=== PATIENT | female | born 1960 | race Caucasian/White ===

== ENCOUNTER 2018-01-03 13:18 | Inpatient (IN) ==
--- NOTE | 2018-01-03 09:10 | Discharge Summary ---
Orders not resulted at time of discharge: Pending orders 01/03/18 09:09 XR knee LT limited 1-2V [XR] Routine Hemoglobin and Hematocrit [HEME] Routine Date of Encounter: 01/04/18 Time of Encounter: 07:55 - Discharge Diagnosis (1) Arthritis of left knee Priority: Primary Status: Chronic (2) Status post total left knee replacement Priority: Primary Status: Acute (3) Hypertension Priority: Secondary Status: Chronic Qualifiers: Hypertension type: unspecified Qualified Code(s): I10 - Essential (primary ) hypertension (4) Hyperlipidemia Priority: Secondary Status: Chronic Qualifiers: Hyperlipidemia type: unspecified Qualified Code(s): E78.5 - Hyperlipidemia , unspecified (5) Coronary artery disease Priority: Secondary Status: Chronic Qualifiers: Coronary Disease-Associated Artery/Lesion type: [place] artery [place] vs. transplanted heart: [place] heart Associated angina: angina presence unspecified Qualified Code(s): I25.10 - Atherosclerotic heart disease of [place] coronary artery without angina pectoris (6) Obstructive sleep apnea Priority: Secondary Status: Chronic (7) COPD (chronic obstructive pulmonary disease) Priority: Secondary Status: Chronic Qualifiers: COPD type: unspecified COPD Qualified Code(s): J44.9 - Chronic obstructive pulmonary disease, unspecified (8) History of tobacco use Priority: Secondary Status: Chronic (9) S/P insertion of spinal cord stimulator Priority: Secondary Status: Chronic (10) Morbid obesity with BMI of 40.0-44.9, adult Priority: Secondary Status: Chronic - Hospital Course Hospital course: Ms. Hernandez is a 57 year old female Status post total knee replacementThe patient had an uneventful postoperative course. They received antibiotics and physical therapy and were discharged in stable condition. There will follow-up in the office in 2 weeks. - Time Spent with Patient Total time spent providing and/or coordinating discharge services: - Discharge Medications Home Medications: Magnesium Oxide [Magnesium] 400 mg PO HS 02/04/15 [History] Nitroglycerin 0.4 mg SL Q5MIN PRN 02/04/15 [History] Omeprazole [PriLOSEC] 20 mg PO DAILY 02/04/15 [History] Pravastatin Sodium [Pravachol] 40 mg PO HS 02/04/15 [History] Losartan Potassium [Cozaar] 100 mg PO HS 11/13/16 [History] Albuterol Sulfate [Albuterol Inhaler] 2 puff IH Q4HR PRN 11/22/16 [History] Gabapentin [Neurontin] 800 mg PO TID 11/22/16 [History] Chlorthalidone 25 mg PO DAILY 11/11/17 [History] Ibuprofen [Motrin] 800 mg PO Q8HR 11/11/17 [History] Aspirin Enteric Coated [Aspirin EC] 325 mg PO BID #20 tablet. 01/03/18 [Rx] Escitalopram [Lexapro] 20 mg PO HS 01/03/18 [History] Metoprolol Succinate [Toprol Xl] 25 mg PO HS 01/03/18 [History] OxyCODONE Immed Rel [Roxicodone 5 MG] 5 mg PO Q4HR PRN 5 Days #20 tablet [Rx] Allergies/Adverse Reactions: 3 Allergy/AdvReac Type Severity Reaction Status Date / Time Penicillins Allergy Mild Rash Verified 01/03/18 20:13 pregabalin [From Lyrica] AdvReac Mild MEMORY LOSS Verified 01/03/18 20:13 latex AdvReac Unknown RASH Verified 01/03/18 20:13 TESTED NEGATIVE Primary care physician: Andrew Chen MD - Patient Status Disposition: Home Health Service Condition: Good Functional capacity at discharge: uses cane/walker Overall status at discharge: patient is progressing back to baseline - Discharge Instructions Follow Up With: Andrew Chen MD [Primary Care Provider] -
[2018-01-03] MEDS ORDERED: ROPIVACAINE HCL/PF 0.5% 30 ML VIAL ONE (13:35)
[2018-01-03] MEDS ORDERED: Bupivacaine/Clonidine Syringe 1 EACH SYRINGE ONE (13:35)
[2018-01-03] MEDS ORDERED: Albuterol 2.5 MG/3 ML NEBULIZER IH ONE (13:51)
[2018-01-03] MEDS ORDERED: Clindamycin 900 MG/50 ML 900 MG/50 ML IV.SOLN IVPB ONE (13:51)
[2018-01-03] MEDS ORDERED: Ringers Solution, Lactated 1,000 ML IVC SCH ×2 (14:00→19:49)
--- NOTE | 2018-01-03 14:19 | History & Physical Report ---
Date of Encounter: 01/03/18 Time of Encounter: 14:19 24 Hour HP Update - Instructions Instructions: If the History and Physical is less than 30 days old and was completed prior to A.M. admission and or procedure and has NOT been updated on calendar day of procedure please complete this update prior to performing procedure. - Update Patient reports changes in Medical Condition: No Changes in examination, assessment, or condition: No Changes in Medication: No Preop tests/diagnostics Reviewed: Yes Surgery Remains Indicated: Yes Consent for Planned Operative Procedure(s) Verified: Yes - Pre-Operative Checklist Preoperative Checklist Indicated: No Prophylactic Antibiotic Ordered: Yes Is VTE Prophylaxis Indicated?: Yes
[2018-01-03] MEDS ORDERED: Gabapentin 300 MG CAPSULE PO ONE (14:36)
[2018-01-03] MEDS ORDERED: Acetaminophen IV 1,000 MG/100 ML INFUS..BTL IVPB ONE (14:36)
[2018-01-03] MEDS ORDERED: Famotidine 20 MG/2 ML VIAL IVP ONE (14:36)
--- NOTE | 2018-01-03 14:39 | Anesthesia Evaluation PreOp ---
Date of Encounter: 01/03/18 Time of Encounter: 14:43 - Past History Planned Operation: L TKA Cardiac History: HTN, Hyperlipidemia, Other (CAD) Pulmonary History: Former smoker (quit 10/2017 previous 1ppd), COPD, MARLEE Dx TRAVEL COTA History: Denies Any Significant HX, Other (anxiety, depression) Other Medical History: GERD, Other (DDD, chornic back pain, spinal cord stimulator and had redo operation.) Anesthesia History: No Prior Anesthetic Complications, Past Anesthesia : No Alcohol Use: none Drug use: none Medications and Allergies Escitalopram [Lexapro] 20 mg PO HS 02/04/15 [History] Magnesium Oxide [Magnesium] 400 mg PO HS 02/04/15 [History] Metoprolol XL (24 HR) Succ [Toprol XL] 25 mg PO DAILY 02/04/15 [History] Nitroglycerin 0.4 mg SL Q5MIN PRN 02/04/15 [History] Omeprazole [PriLOSEC] 20 mg PO DAILY 02/04/15 [History] Pravastatin Sodium [Pravachol] 40 mg PO HS 02/04/15 [History] Losartan Potassium [Cozaar] 100 mg PO DAILY 11/13/16 [History] Albuterol Sulfate [Albuterol Inhaler] 2 puff IH Q4HR PRN 11/22/16 [History] Gabapentin [Neurontin] 800 mg PO TID 11/22/16 [History] Chlorthalidone 25 mg PO DAILY 11/11/17 [History] Ibuprofen [Motrin] 800 mg PO Q8HR 11/11/17 [History] Amlodipine Besylate 5 mg PO DAILY 01/03/18 [History] Aspirin Enteric Coated [Aspirin EC] 325 mg PO BID #20 tablet. 01/03/18 [Rx] OxyCODONE Immed Rel [Roxicodone 5 MG] 5 mg PO Q4HR PRN 5 Days #20 tablet [Rx] 3 Allergy/AdvReac Type Severity Reaction Status Date / Time Penicillins Allergy Mild Rash Verified 11/22/16 12:27 pregabalin [From Lyrica] AdvReac Mild MEMORY LOSS Verified 11/22/16 12:27 latex AdvReac Unknown RASH Verified 11/22/16 12:27 TESTED NEGATIVE - Meds/Allergy Pre-op Review Medications Reviewed: Yes Allergies Reviewed: Yes Beta Blockers on Current Med List: Yes Anesthesia Results - Labs Laboratory Tests 01/02/18 01/02/18 01/02/18 11:08 11:08 11:08 WBC 9.2 Hgb 12.9 Hct 40.0 Plt Count 291 PT 12.0 INR 1.1 APTT 37.1 H Sodium 138 Potassium 4.1 Chloride 99 Carbon Dioxide 32 H BUN 14 Creatinine 0.87 Est GFR (Non-Af Amer) > 60 - Imaging EKG: report reviewed, image reviewed Additional studies: LEFT HEART CATH 10/2017 Indications: Abnormal Test - Stress Impressions: There is moderate two vessel coronary artery disease. Recommendations: Optimal medical therapy of patient's disease. Aggressive risk factor modification. Intermediate risk for cardiac events with knee surgery History/Risk Factors: gerd kidney stones colon polyp sleep apnea copd anemia depression Hypertension Dyslipidemia Current/Recent Smoker Family History of CAD Chronic Lung Disease Coronary Dominance: right Lesion Findings/Interventions * Left Main Coronary Artery There is a 25% stenosis in the Proximal LMCA. * Left Anterior Descending There is a 25% stenosis in the Mid LAD. There is a 60% stenosis in the 1st Diagonal. * Circumflex The Circumflex is angiographically free of disease. The 1st Marginal is angiographically free of disease. * Right Coronary Artery There is a 25% stenosis in the Mid RCA. There is a 50% stenosis in the Distal RCA. echo 10/2017 Impressions: Technically sub-optimal due to poor echocardiographic windows. LVEF 55%. Normal LV chamber size, wall thickness and function. Atypical septal motion consistent with bundle branch block. Normal right ventricular structure and function. Mild left ventricular diastolic dysfunction. No evidence of pulmonary hypertension. No significant valvular dysfunction. Anesthesia Exam Vital Signs/O2 Sat/Glucose, Most Recent Temp Pulse Resp BP Pulse Ox 98.2 F 72 18 128/67 97 01/03/18 13:33 01/03/18 13:33 01/03/18 13:57 01/03/18 13:33 01/03/18 13:57 Height: 1.57 Weight: 99 kg NPO (# of Hours): > 8 hr - HEENT Pupil (Motor): Pupils equal Mallampati: II Denture Type: Upper: Complete Oral Opening: Greater than 3 - TRAVEL COTA LOC: Oriented TRAVEL COTA Motor: Normal RUE, Normal LUE, Normal RLE, Normal LLE, Normal Face TRAVEL COTA Sensory: Normal: RUE, LUE, RLE, LLE, Face - Cardiac Rhythm: Regular Murmur: None - Pulmonary Breath Sounds: bilateral Clear Respiratory Effort: Symmetrical Anesthesia Assess/Plan ASA Score: 3 Modified Mendel Scale for Level of Consciousness: Cooperative, oriented, and tranquil Anesthetic Plan: General, Regional (adductor and IPACK) Monitoring Plan: Standard Monitors Recovery Plan: PACU
[2018-01-03] MEDS ORDERED: *HR* Midazolam HCl 2 MG/2 ML VIAL ONE (15:02)
[2018-01-03] MEDS ORDERED: *HR* FentaNYL (PF) 100 MCG/2 ML VIAL ONE (15:02)
[2018-01-03] MEDS ORDERED: *HR* Propofol 200 MG/20 ML VIAL IVP ONE (15:02)
[2018-01-03] MEDS ORDERED: Dexamethasone 4 MG/ML VIAL ONE (15:03)
[2018-01-03] MEDS ORDERED: Lidocaine -MPF 2% 2 ML VIAL ONE (15:03)
[2018-01-03] MEDS ORDERED: Ondansetron 4 MG/2 ML VIAL ONE (15:03)
[2018-01-03] MEDS ORDERED: Ethanol\\Acetic Acid\\Na Ace\\Ben 1,000 ML IRRIG.SOLN IR ONE (15:26)
--- NOTE | 2018-01-03 16:00 | Anesthesia Procedures ---
Date of Encounter: 01/03/18 Time of Encounter: 15:57 Procedures: Anesthesia - Nerve Block Procedure Date: 01/03/18 Time: 15:58 Surgical Procedure: Left TKA Checklist: Correct Patient Identifier, Correct procedure, History checked Correct side: Left Blood Thinner: No Monitor Applied: EKG, BP, Pulse Oximetry Supplemental Oxygen via Nasal Cannula (L/min): 2 Sedation: Versed (mg): 2 Sedation: Fentanyl (mcg): 50 Indication: Post Op Analgesia Pre-op Neuro Deficits: No Block Type: Other (Adductor Canal, IPACK) Catheter placed: No Sterile Technique: Yes Ultrasound used: Yes Anatomy identified: Yes Visual spread of Local: Yes Neuro Stimulation: No Blood on Needle Aspiration: No Smooth Injection of Local: Yes Pain with Injection of Local: No Prep: Chlorhexadine Needle: 21 x 100 mm Stimuplex Local: 0.25% Bupivicaine w/Clonidine 20 mcg/cc (20ml IPACK), Ropivacaine (0.5% Ropivacaine 20ml Adductor canal) Volume (cc): 40 Number of Attempts: 1 Complications: None/effective block Vitals: see nurses notes
[2018-01-03] MEDS ORDERED: *HR* Labetalol 20 MG/4 ML SYRINGE IVP PRN (16:01)
[2018-01-03] MEDS ORDERED: *HR* Promethazine 25 MG/ML VIAL IVP PRN (16:01)
[2018-01-03] MEDS ORDERED: *HR* OxyCODONE Immed Rel 5 MG TABLET PO PRN (16:01)
[2018-01-03] MEDS ORDERED: Ondansetron 4 MG/2 ML VIAL IVP ONE (16:01)
[2018-01-03] MEDS ORDERED: *HR* PHENYLEPHRINE 1,000 MCG/10 ML SYRINGE IVP ONE (16:32)
[2018-01-03] MEDS ORDERED: EPHEDrine 50 MG/ML VIAL ONE (16:56)
--- NOTE | 2018-01-03 17:23 | Orthopedic Operative Note ---
Date of procedure: 01/03/18 Pre-op diagnosis: Left knee arthritis Post-op diagnosis: same Procedure: Procedure: Left Total knee replacement Estimated blood loss: 200 cc Hardware: Metal and polyethylene replacement. Arthrex Femur: 4 Tibia: 3 PS insert: 12 Patella: 36 Exam Under anesthesia: Full flexion and extension no varus valgus instability Procedural Notes: Grade 3 arthritic changes medial compartment patellofemoral joint. Operative procedure: The patient was brought to the operating room and placed on the operating room table. After general anesthesia was administered the operative knee was examined. Findings were noted in the exam under anesthesia. The operative extremity was prepped and draped in sterile surgical fashion. The patient received IV antibiotics prior to skin incision. A standard midline incision was made centered over the patella. The incision was made through the skin and subcutaneous tissue. A medial parapatellar tendon approach was performed. Care was taken to preserve tissue along the medial aspect of the patella. And to protect the patella tendon. The deep MCL was released off the medial tibia. The infra patella fat pad was excised. Knee was brought into flexion. Patient noted to have grade 3 arthritic changes medial compartment patellofemoral joint. The entry hole was made for the intramedullary femoral guide. The guide was seated in 6 degrees of valgus. Anterior cut was made followed by the distal cut. The ACL the PCL the medial and the lateral menisci were excised. The tibia was subluxed forward. The entry hole was made for the intramedullary tibial guide. Guide was seated to resect 2 mm off the more abnormal side. The knee was brought into flexion the distal femur was sized to a 4. The femoral guide was seated, the anterior cut was made followed by the posterior condylar cut, followed by the chamfer cuts. The finishing guide was seated the box cut was made and the lug holes were drilled. The tibia was sized to a 3, the tibial tray was seated and prepared with the large drill followed by the fin cutter. Trial reduction revealed full extension no varus valgus instability with the appropriate 12 PS Ramya. The patella was everted and cut was made at the level of the insertion of the quadriceps and patella tendon. The patella was sized to 34 the guide was seated and the lug holes are drilled. Trial reduction revealed excellent patella tracking. All trial components were removed all bony surfaces were irrigated. The tibia was cemented first followed by the femur. The 12 PS Ramya was seated and the knee was brought into full extension. The patella was cemented and held in place with the patellar holding clamp. After the cement had hardened, the knee sat for 2 minutes with a antibacterial solution. The knee was then irrigated out with 2 L of pulse irrigation. The extensor mechanism was closed with #2 FiberWire suture and #2 PDS suture. The subcutaneous tissue was then irrigated and closed deep with #1 PDS suture superficially with 0 PDS suture and skin was closed with skin lily. The patient was then placed in a sterile dressing and a postoperative brace extubated and transferred to recovery room in stable condition. Anesthesia: GETA Surgeon: Joshua More Was there an assistant foreman present: No Estimated blood loss (cc): 200 Disposition: PACU
--- NOTE | 2018-01-03 17:28 | Physician Discharge Referral ---
<Zulema Sinha - Last Filed: 01/03/18 17:26> Home Health/Hosp Referral Info Transfer to: Home Health Attending Provider: Dr. More - Diagnosis (1) Status post total left knee replacement Priority: Primary Status: Acute (2) Arthritis of left knee Priority: Secondary Status: Chronic (3) Hyperlipidemia Priority: Secondary Status: Acute (4) COPD (chronic obstructive pulmonary disease) Priority: Secondary Status: Chronic (5) Coronary artery disease Priority: Secondary Status: Chronic (6) History of tobacco use Priority: Secondary Status: Chronic (7) Hypertension Priority: Secondary Status: Chronic (8) Morbid obesity with BMI of 40.0-44.9, adult Priority: Secondary Status: Chronic (9) Obstructive sleep apnea Priority: Secondary Status: Chronic (10) S/P insertion of spinal cord stimulator Priority: Secondary Status: Chronic (11) Chest pain Priority: Secondary Status: Acute (12) Bursitis of both hips Priority: Secondary Status: Chronic (13) Lumbar radiculopathy Priority: Secondary Status: Chronic (14) Sacroiliitis Priority: Secondary Status: Chronic - Respiratory Orders Smoking Cessation: Smoking cessation has been advised. For more information, call the [place] Tobacco Quit Line at 8-407-VIVH-NOW. - Diet/Nutrition Diet/Nutrition Orders: Regular - Activity Activity Orders: Ambulate - Services Needed Following services are medically necessary services: Physical Therapy, Occupational Therapy Other Treatments: Opsite dressing, leave intact until first post-operative visit. If dressing becomes >50% saturated, contact office, remove dressing and place appropriate dressing in its place. Do not allow for dressing to get wet. Zipline/[place] in place, plan to remove at post-operative day #14-16. Total Joint Precautions x 6 weeks Apply cold therapy wrap 3-6x/day for 20 minutes at a time. Encourage ambulation throughout the day Use Incentive spirometer 10x/hour. Elevate affected extremity above heart as tolerated. Brace: Wear knee immobilizer at night x 2 weeks. - Transfer Medications Home Medications: Magnesium Oxide [Magnesium] 400 mg PO HS 02/04/15 [History] Nitroglycerin 0.4 mg SL Q5MIN PRN 02/04/15 [History] Omeprazole [PriLOSEC] 20 mg PO DAILY 02/04/15 [History] Pravastatin Sodium [Pravachol] 40 mg PO HS 02/04/15 [History] Losartan Potassium [Cozaar] 100 mg PO HS 11/13/16 [History] Albuterol Sulfate [Albuterol Inhaler] 2 puff IH Q4HR PRN 11/22/16 [History] Gabapentin [Neurontin] 800 mg PO TID 11/22/16 [History] Chlorthalidone 25 mg PO DAILY 11/11/17 [History] Ibuprofen [Motrin] 800 mg PO Q8HR 11/11/17 [History] Aspirin Enteric Coated [Aspirin EC] 325 mg PO BID #20 tablet. 01/03/18 [Rx] Escitalopram [Lexapro] 20 mg PO HS 01/03/18 [History] Metoprolol Succinate [Toprol Xl] 25 mg PO HS 01/03/18 [History] OxyCODONE Immed Rel [Roxicodone 5 MG] 5 mg PO Q4HR PRN 5 Days #20 tablet [Rx] Allergies/Adverse Reactions: 3 Allergy/AdvReac Type Severity Reaction Status Date / Time Penicillins Allergy Mild Rash Verified 01/03/18 20:13 pregabalin [From Lyrica] AdvReac Mild MEMORY LOSS Verified 01/03/18 20:13 latex AdvReac Unknown RASH Verified 01/03/18 20:13 TESTED NEGATIVE Certification: Further, I certify that my clinical findings support that this patient is homebound (i.e. absences from home require considerable and taxing effort and are for medical reasons or mosque services or infrequently or short duration when for other reasons) because: Homebound Reason: Post-surgery restriction and or conditions limit ability to leave home Attestation: My signature below is to certify that this patient is under my care and that I, or nurse practitioner, or a physician lens assistant working with me, has a face-to- face encounter with this patient. <Joshua More - Last Filed: 01/04/18 07:54> - Diagnosis (1) Arthritis of left knee Status: Chronic (2) Status post total left knee replacement Status: Acute (3) Hypertension Status: Chronic (4) Hyperlipidemia Status: Chronic (5) Coronary artery disease Status: Chronic (6) Obstructive sleep apnea Status: Chronic (7) COPD (chronic obstructive pulmonary disease) Status: Chronic (8) History of tobacco use Status: Chronic (9) S/P insertion of spinal cord stimulator Status: Chronic (10) Morbid obesity with BMI of 40.0-44.9, adult Status: Chronic - Respiratory Orders Smoking Cessation: Smoking cessation has been advised. For more information, call the [place] Tobacco Quit Line at 9-781-GBVL-NOW. Certification: Further, I certify that my clinical findings support that this patient is homebound (i.e. absences from home require considerable and taxing effort and are for medical reasons or mosque services or infrequently or short duration when for other reasons) because: Attestation: My signature below is to certify that this patient is under my care and that I, or nurse practitioner, or a physician's lens assistant working with me, has a face-to -face encounter with this patient.
--- NOTE | 2018-01-03 17:29 | Physician Discharge Referral ---
<Zulema Sinha - Last Filed: 01/03/18 17:28> ExtendedCare Referral Info Transfer To: [facility] Provider in Charge: Dr. More - Diagnosis (1) Status post total left knee replacement Priority: Primary Status: Acute (2) Arthritis of left knee Priority: Secondary Status: Chronic (3) Hyperlipidemia Priority: Secondary Status: Chronic (4) COPD (chronic obstructive pulmonary disease) Priority: Secondary Status: Chronic (5) Coronary artery disease Priority: Secondary Status: Chronic (6) History of tobacco use Priority: Secondary Status: Chronic (7) Hypertension Priority: Secondary Status: Chronic (8) Morbid obesity with BMI of 40.0-44.9, adult Priority: Secondary Status: Chronic (9) Obstructive sleep apnea Priority: Secondary Status: Chronic (10) S/P insertion of spinal cord stimulator Priority: Secondary Status: Chronic (11) Chest pain Priority: Secondary Status: Acute (12) Bursitis of both hips Priority: Secondary Status: Chronic (13) Lumbar radiculopathy Priority: Secondary Status: Chronic (14) Sacroiliitis Priority: Secondary Status: Chronic Expected Duration of Placement: <30 days Prognosis: Good Aware of Diagnosis: Patient Aware of Prognosis: Patient - Transfer Medications Home Medications: Magnesium Oxide [Magnesium] 400 mg PO HS 02/04/15 [History] Nitroglycerin 0.4 mg SL Q5MIN PRN 02/04/15 [History] Omeprazole [PriLOSEC] 20 mg PO DAILY 02/04/15 [History] Pravastatin Sodium [Pravachol] 40 mg PO HS 02/04/15 [History] Losartan Potassium [Cozaar] 100 mg PO HS 11/13/16 [History] Albuterol Sulfate [Albuterol Inhaler] 2 puff IH Q4HR PRN 11/22/16 [History] Gabapentin [Neurontin] 800 mg PO TID 11/22/16 [History] Chlorthalidone 25 mg PO DAILY 11/11/17 [History] Ibuprofen [Motrin] 800 mg PO Q8HR 11/11/17 [History] Aspirin Enteric Coated [Aspirin EC] 325 mg PO BID #20 tablet. 01/03/18 [Rx] Escitalopram [Lexapro] 20 mg PO HS 01/03/18 [History] Metoprolol Succinate [Toprol Xl] 25 mg PO HS 01/03/18 [History] OxyCODONE Immed Rel [Roxicodone 5 MG] 5 mg PO Q4HR PRN 5 Days #20 tablet [Rx] Allergies/Adverse Reactions: 3 Allergy/AdvReac Type Severity Reaction Status Date / Time Penicillins Allergy Mild Rash Verified 01/03/18 20:13 pregabalin [From Lyrica] AdvReac Mild MEMORY LOSS Verified 01/03/18 20:13 latex AdvReac Unknown RASH Verified 01/03/18 20:13 TESTED NEGATIVE - Respiratory Orders Smoking Cessation: Smoking cessation has been advised. For more information, call the [place] Tobacco Quit Line at 9-164-SWSP-NOW. - Ancillary Orders May use pressure relief devices daily prn, May go on [place] w/family/respon republican w /meds at nurse discretion PRN, May consult with Dentist, Embedded Systems Software Engineer, Mechanic Sound Technician PRN - Mobility Orders Chair, Ambulate - Rehabiliation Orders Rehab Potential: Good Rehab Orders: Evaluation for Physical Therapy, Evaluation for Occupational Therapy - Treatments Skin tear care topically daily PRN per policy List/Other: Opsite dressing, leave intact until first post-operative visit. If dressing becomes >50% saturated, contact office, remove dressing and place appropriate dressing in its place. Do not allow for dressing to get wet. Zipline/[place] in place, plan to remove at post-operative day #14-16. Total Joint Precautions x 6 weeks Apply cold therapy wrap 3-6x/day for 20 minutes at a time. Encourage ambulation throughout the day Use Incentive spirometer 10x/hour. Elevate affected extremity above heart as tolerated. Brace: Wear knee immobilizer at night x 2 weeks. - Diet Orders Regular CERTIFICATION: I certify that the transfer of the above named patient to an Extended Care Facility is necessary for the continuing treatment of the diagnosis listed. The above information is true and accurate reflection of patient's current condition. Confidential - Redisclosure prohibited without a patient's written consent. <Joshua More - Last Filed: 01/04/18 07:55> - Diagnosis (1) Arthritis of left knee Status: Chronic (2) Status post total left knee replacement Status: Acute (3) Hypertension Status: Chronic (4) Hyperlipidemia Status: Chronic (5) Coronary artery disease Status: Chronic (6) Obstructive sleep apnea Status: Chronic (7) COPD (chronic obstructive pulmonary disease) Status: Chronic (8) History of tobacco use Status: Chronic (9) S/P insertion of spinal cord stimulator Status: Chronic (10) Morbid obesity with BMI of 40.0-44.9, adult Status: Chronic - Respiratory Orders Smoking Cessation: Smoking cessation has been advised. For more information, call the [place] Tobacco Quit Line at 0-192-WYLWNOW. CERTIFICATION: I certify that the transfer of the above named patient to an Extended Care Facility is necessary for the continuing treatment of the diagnosis listed. The above information is true and accurate reflection of patient's current condition. Confidential - Redisclosure prohibited without a patient's written consent.
[2018-01-03] MEDS: *HR* Meperidine 25 MG/ML SYRINGE IVP PRN ×2 (17:40→17:55)
[2018-01-03] MEDS ORDERED: *HR* Enoxaparin 30 MG/0.3 ML SYRINGE SQ SCH (18:00)
[2018-01-03] MEDS ORDERED: *HR* Meperidine 25 MG/ML SYRINGE IVP PRN (18:06)
[2018-01-03] MEDS ORDERED: *HR* Meperidine 25 MG/ML SYRINGE ONE (18:09)
--- NOTE | 2018-01-03 18:21 | Anesthesia Evaluation Post Op ---
Date of Encounter: 01/03/18 Time of Encounter: 18:20 - Vital Signs Vital Signs: Vital Signs/O2 Sat, Most Current Temp Pulse Resp BP Pulse Ox 98.1 F 91 16 116/68 95 01/03/18 17:33 01/03/18 17:53 01/03/18 17:53 01/03/18 17:53 01/03/18 17:53 - Lungs Lungs: Clear Ascult./Percussion - Airway Airway: Non-obstructed - Cardiovascular Regular Rate - Mental Status Mental Status: Alert & Oriented, Answers Appropriately - Pain Pain Scale: 5 Pain Scale used: Numeric (1 - 10) - Nausea Vomiting Nausea Vomiting: Not Present - Hydration Hydration: Ice chips, Has not voided - Discharge PostOp Status: Transfer Patient to floor
[2018-01-03 18:42] LABS: Hematocrit 35.1 % (35.3-44.9)
[2018-01-03 18:44] LABS: Hemoglobin 11.2 g/dL (11.5-15.4)
[2018-01-03] MEDS ORDERED: traMADol 50 MG TABLET PO PRN (19:49)
[2018-01-03] MEDS ORDERED: Ondansetron 4 MG/2 ML VIAL IVP PRN (19:49)
[2018-01-03] MEDS ORDERED: MOM Conc 10 ML UD.LIQ PO PRN (19:49)
[2018-01-03] MEDS ORDERED: Sennosides 8.6 MG TABLET PO PRN (19:49)
[2018-01-03] MEDS ORDERED: Temazepam 15 MG CAPSULE PO PRN (19:49)
[2018-01-03] MEDS ORDERED: Naloxone 0.4 MG/ML INJ IVP PRN (19:49)
[2018-01-03] MEDS: Gabapentin 400 MG CAPSULE PO SCH (21:45)
[2018-01-03] MEDS: *HR* OxyCODONE/APAP 5/325 TABLET PO PRN (21:45)
[2018-01-04] MEDS: Clindamycin 900 MG/50 ML 900 MG/50 ML IV.SOLN IVPB SCH ×2 (00:26→08:26)
[2018-01-04] MEDS: *HR* OxyCODONE Immed Rel 5 MG TABLET PO PRN ×2 (00:33→11:02)
[2018-01-04 01:23] LABS: Hematocrit 33.9 % (35.3-44.9); Hemoglobin 10.8 g/dL (11.5-15.4)
[2018-01-04 01:42] LABS: Calcium 9.1 mg/dL (8.6-10.3); Potassium 4.2 mEq/L (3.5-5.1)
[2018-01-04] MEDS: *HR* OxyCODONE/APAP 5/325 TABLET PO PRN (03:40)
[2018-01-04] MEDS ORDERED: *HR* Enoxaparin 30 MG/0.3 ML SYRINGE SQ SCH (06:00)
--- NOTE | 2018-01-04 07:55 | Orthopedics Progress Note ---
Date of Encounter: 01/04/18 Time of Encounter: 07:55 - Assessment and Plan (1) Arthritis of left knee Current Visit: No Status: Chronic (2) Status post total left knee replacement Current Visit: No Status: Acute (3) Hypertension Current Visit: Yes Status: Chronic Qualifiers: Hypertension type: unspecified Qualified Code(s): I10 - Essential (primary ) hypertension (4) Hyperlipidemia Current Visit: Yes Status: Chronic Qualifiers: Hyperlipidemia type: unspecified Qualified Code(s): E78.5 - Hyperlipidemia , unspecified (5) Coronary artery disease Current Visit: Yes Status: Chronic Qualifiers: Coronary Disease-Associated Artery/Lesion type: [place] artery [place] vs. transplanted heart: [place] heart Associated angina: angina presence unspecified Qualified Code(s): I25.10 - Atherosclerotic heart disease of [place] coronary artery without angina pectoris (6) Obstructive sleep apnea Current Visit: Yes Status: Chronic (7) COPD (chronic obstructive pulmonary disease) Current Visit: Yes Status: Chronic Qualifiers: COPD type: unspecified COPD Qualified Code(s): J44.9 - Chronic obstructive pulmonary disease, unspecified (8) History of tobacco use Current Visit: Yes Status: Chronic (9) S/P insertion of spinal cord stimulator Current Visit: Yes Status: Chronic (10) Morbid obesity with BMI of 40.0-44.9, adult Current Visit: Yes Status: Chronic Subjective Interval history: Patient was seen this morning doing well without complaints. Afebrile vital signs stable. Operative extremity: Neurovascularly intact Dressing clean dry and intact Calves nontender Assessment and plan: Continue with postoperative care Hematocrit 33 discharged today Objective Vital signs: Vital Signs Temp Pulse Resp BP Pulse Ox 01/04/18 07:12 98.1 F 97 16 106/63 94 01/04/18 04:50 98.1 F 87 18 124/76 98 01/03/18 23:12 98 F 89 15 106/67 98 01/03/18 21:30 98.4 F 76 16 98/68 98 01/03/18 20:30 98.7 F 76 16 110/86 96 01/03/18 19:30 98.4 F 79 16 91/64 95 01/03/18 19:29 98.1 F 87 16 80/47 94 01/03/18 19:05 98.5 F 88 16 88/58 96 01/03/18 18:48 97.5 F L 90 15 87/53 97 01/03/18 18:23 98.1 F 90 16 101/86 96 01/03/18 18:13 91 16 101/86 95 01/03/18 18:03 98.1 F 91 16 97/38 96 01/03/18 17:53 91 16 116/68 95 01/03/18 17:43 89 16 102/65 96 01/03/18 17:33 98.1 F 88 16 103/67 100 01/03/18 15:29 71 15 117/48 97 01/03/18 13:57 18 97 01/03/18 13:33 98.2 F 72 18 128/67 97 Intake and Output 01/03/18 01/03/18 01/04/18 15:59 23:59 07:59 Intake Total 0 / 0 50 / 50 Output Total 200 / 200 Balance -200 / -200 50 / 50 Intake: IV Fluids 50 / 50 Cleocin Premix 900 MG/50 ML 900 50 / 50 mg In 50 ml @ 50 mls/hr IVPB Q8HR [facility] Rx#:[id number] Oral 0 / 0 Output: Urine 0 / 0 Estimated Blood Loss 200 / 200 Other: Weight 99.79 kg - Labs CBC & BMP: 01/04/18 01:04 01/04/18 01:04 Labs: Abnormal lab results Hgb 10.8 g/dL (11.5-15.4) L 01/04/18 01:04 Hct 33.9 % (35.3-44.9) L 01/04/18 01:04 Sodium 134 mEq/L (136-145) L 01/04/18 01:04 Chloride 95 mEq/L (98-107) L 01/04/18 01:04 BUN 23 mg/dL (6-20) H 01/04/18 01:04 Creatinine 1.22 mg/dL (0.60-1.20) H 01/04/18 01:04 Est GFR ( Amer) 55 (> 60) L 01/04/18 01:04 Est GFR (Non-Af Amer) 45 (> 60) L 01/04/18 01:04 Glucose 223 mg/dL (70-105) H 01/04/18 01:04 - VTE Documentation of Mechanical Device: Venous foot pump, device Consult Discharge Plan - Plan Referrals: Andrew Chen MD [Primary Care Provider] -
[2018-01-04] MEDS: Gabapentin 400 MG CAPSULE PO SCH (08:26)
[2018-01-04] MEDS ORDERED: amLODIPine 5 MG TABLET PO SCH (09:00)
[2018-01-04 11:02] VITALS: BP 102/49
== END 2018-01-04 11:52 | disposition home health service (06) | DRG 302 ==
LOC: SAMDAY 13:18 → 3NENU 18:42
PROVIDERS: ADMIT Orthopaedic Surgery; ATTEND Orthopaedic Surgery

== ENCOUNTER 2018-05-08 12:07 | Inpatient (IN) ==
[2018-05-08] MEDS ORDERED: Albuterol 2.5 MG/3 ML NEBULIZER IH ONE (12:41)
[2018-05-08] MEDS ORDERED: Clindamycin 900 MG/50 ML 900 MG/50 ML IV.SOLN IVPB ONE (12:41)
[2018-05-08] MEDS ORDERED: Acetaminophen IV 1,000 MG/100 ML INFUS..BTL IVPB ONE (13:01)
[2018-05-08] MEDS ORDERED: Famotidine 20 MG/2 ML VIAL IVP ONE (13:01)
[2018-05-08] MEDS ORDERED: Celecoxib 100 MG CAPSULE PO ONE (13:01)
[2018-05-08] MEDS ORDERED: Gabapentin 300 MG CAPSULE PO ONE (13:01)
--- NOTE | 2018-05-08 13:03 | Anesthesia Evaluation PreOp ---
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 PATIENT History: Other (anxiety depression) Other Medical History: Renal (CKD), GERD, Other (DDD, chornic back pain, spinal cord stimulator and had redo operation) Anesthesia History: No Prior Anesthetic Complications, Past Anesthesia : No Alcohol Use: none Drug use: none Medications and Allergies Magnesium Oxide [Magnesium] 400 mg PO HS 02/04/15 [History] Nitroglycerin 0.4 mg SL Q5MIN PRN 02/04/15 [History] Omeprazole [PriLOSEC] 20 mg PO DAILY 02/04/15 [History] Pravastatin Sodium [Pravachol] 40 mg PO HS 02/04/15 [History] Losartan Potassium [Cozaar] 100 mg PO HS 11/13/16 [History] Albuterol Sulfate [Albuterol Inhaler] 2 puff IH Q4HR PRN 11/22/16 [History] Gabapentin [Neurontin] 800 mg PO TID 11/22/16 [History] Chlorthalidone 25 mg PO DAILY 11/11/17 [History] Ibuprofen [Motrin] 800 mg PO Q8HR 11/11/17 [History] Aspirin Enteric Coated [Aspirin EC] 325 mg PO BID #20 tablet. 01/03/18 [Rx] Escitalopram [Lexapro] 20 mg PO HS 01/03/18 [History] Metoprolol Succinate [Toprol Xl] 25 mg PO HS 01/03/18 [History] OxyCODONE Immed Rel [Roxicodone 5 MG] 5 mg PO Q4HR PRN 5 Days #20 tablet 01/03/18 [Rx] Allergy/AdvReac Type Severity Reaction Status Date / Time Penicillins Allergy Mild Rash Verified 05/06/18 13:38 pregabalin [From Lyrica] AdvReac Mild MEMORY LOSS Verified 05/06/18 13:38 latex AdvReac Unknown RASH Verified 05/06/18 13:38 TESTED NEGATIVE - Meds/Allergy Pre-op Review Medications Reviewed: Yes Allergies Reviewed: Yes Beta Blockers on Current Med List: No Anesthesia Results - Labs Laboratory Tests 05/06/18 05/06/18 05/06/18 14:25 14:25 14:25 WBC 10.7 Hgb 11.5 Hct 36.6 Plt Count 302 PT 12.2 H INR 1.1 APTT 38.2 H Sodium 139 Potassium 3.6 Chloride 102 Carbon Dioxide 29 BUN 13 Creatinine 1.07 Est GFR (Non-Af Amer) 52 L - Imaging EKG: report reviewed (SINUS RHYTHM BORDERLINE LEFT AXIS DEVIATION VOLTAGE CRITERIA FOR LVH NONSPECIFIC T-WAVE ABNORMALITY) Additional studies: 10/2017 LEFT HEART CATH Indications: Abnormal Test - Stress Impressions: There is moderate two vessel coronary artery disease. Recommendations: Optimal medical therapy of patient's disease. Aggressive risk factor modification. Intermediate risk for cardiac events with knee surgery History/Risk Factors: gerd kidney stones colon polyp sleep apnea copd anemia depression Hypertension Dyslipidemia Current/Recent Smoker Family History of CAD Chronic Lung Disease Procedure Time out performed according to hospital policy. Access obtained in the right Femoral artery by percutaneous puncture *See Cath Procedure log for details* Estimated Blood Loss: minimal Complications: None Coronary Dominance: right Lesion Findings/Interventions * Left Main Coronary Artery There is a 25% stenosis in the Proximal LMCA. * Left Anterior Descending There is a 25% stenosis in the Mid LAD. There is a 60% stenosis in the 1st Diagonal. * Circumflex The Circumflex is angiographically free of disease. The 1st Marginal is angiographically free of disease. * Right Coronary Artery There is a 25% stenosis in the Mid RCA. There is a 50% stenosis in the Distal RCA. 10/2017 Impressions: Technically sub-optimal due to poor echocardiographic windows. LVEF 55%. Normal LV chamber size, wall thickness and function. Atypical septal motion consistent with bundle branch block. Normal right ventricular structure and function. Mild left ventricular diastolic dysfunction. No evidence of pulmonary hypertension. No significant valvular dysfunction. Anesthesia Exam Vital Signs/O2 Sat/Glucose, Most Recent Temp Pulse Resp BP Pulse Ox 97.6 F 73 18 116/57 94 05/08/18 12:30 05/08/18 12:30 05/08/18 12:30 05/08/18 12:30 05/08/18 12:30 - HEENT Pupil (Motor): Pupils equal Mallampati: III Denture Type: Upper: Complete Oral Opening: Greater than 3 - MANAGER PATIENT LOC: Oriented MANAGER PATIENT Motor: Normal RUE, Normal LUE, Normal RLE, Normal LLE, Normal Face MANAGER PATIENT Sensory: Normal: RUE, LUE, RLE, LLE, Face - Cardiac Rhythm: Regular Murmur: None - Pulmonary Breath Sounds: bilateral Clear Respiratory Effort: Symmetrical Anesthesia Assess/Plan ASA Score: 3 Level of consciousness: Cooperative, Oriented Anesthetic Plan: General, Regional Nerve Block Regional Nerve Block Plan: Femoral Monitoring Plan: Standard Monitors Recovery Plan: PACU
[2018-05-08] MEDS ORDERED: *HR* HYDROmorphone (PF) 1 MG/ML SYRINGE IVP PRN (13:15)
[2018-05-08] MEDS ORDERED: *HR* Promethazine 25 MG/ML VIAL IVP PRN (13:15)
[2018-05-08] MEDS ORDERED: Ondansetron 4 MG/2 ML VIAL IVP ONE (13:15)
[2018-05-08] MEDS ORDERED: *HR* OxyCODONE Immed Rel 5 MG TABLET PO PRN (13:15)
[2018-05-08] MEDS: Ringers Solution, Lactated 1,000 ML IVC SCH ×3 (13:19→20:45)
[2018-05-08] MEDS ORDERED: *HR* Propofol 200 MG/20 ML VIAL IVP ONE (13:26)
[2018-05-08] MEDS ORDERED: *HR* FentaNYL (PF) 100 MCG/2 ML VIAL ONE (13:26)
[2018-05-08] MEDS ORDERED: *HR* Midazolam HCl 2 MG/2 ML VIAL ONE (13:26)
[2018-05-08] MEDS ORDERED: Bupivacaine/Clonidine Syringe 1 EACH SYRINGE ONE (13:39)
[2018-05-08] MEDS ORDERED: ROPIVACAINE HCL/PF 0.5% 30 ML VIAL ONE (13:39)
--- NOTE | 2018-05-08 13:50 | History & Physical Report ---
Date of Encounter: 05/08/18 Time of Encounter: 13:49 24 Hour HP Update - Instructions Instructions: If the History and Physical is less than 30 days old and was completed prior to A.M. admission and or procedure and has NOT been updated on calendar day of procedure please complete this update prior to performing procedure. - Update Patient reports changes in Medical Condition: No Changes in examination, assessment, or condition: No Changes in Medication: No Preop tests/diagnostics Reviewed: Yes Surgery Remains Indicated: Yes Consent for Planned Operative Procedure(s) Verified: Yes - Pre-Operative Checklist Preoperative Checklist Indicated: No Prophylactic Antibiotic Ordered: Yes Is VTE Prophylaxis Indicated?: NO
[2018-05-08] MEDS ORDERED: Ethanol\\Acetic Acid\\Na Ace\\Ben 1,000 ML IRRIG.SOLN IR ONE ×2 (14:29→14:33)
--- NOTE | 2018-05-08 14:48 | Anesthesia Procedures ---
Date of Encounter: 05/08/18 Time of Encounter: 14:32 Procedures: Anesthesia - Nerve Block Procedure Date: 05/08/18 Time: 14:32 Allergies/Adv Reactions: Allergies Allergy/AdvReac Type Severity Reaction Status Date / Time Penicillins Allergy Mild Rash Verified 05/06/18 13:38 pregabalin [From Lyrica] AdvReac Mild MEMORY LOSS Verified 05/06/18 13:38 latex AdvReac Unknown RASH Verified 05/06/18 13:38 TESTED NEGATIVE Pre-op Diagnosis: Left Patella Maltracking Surgical Procedure: Left patella Revision Checklist: Correct Patient Identifier, Correct procedure, History checked Correct side: Left Blood Thinner: No Monitor Applied: EKG, BP, Pulse Oximetry Supplemental Oxygen via Nasal Cannula (L/min): 2 Sedation: Versed (mg): 2 Sedation: Fentanyl (mcg): 100 Indication: Post Op Analgesia Pre-op Neuro Deficits: No Block Type: Femoral, Other (Femoral and IPACK) Catheter placed: No Sterile Technique: Yes Ultrasound used: Yes Anatomy identified: Yes Visual spread of Local: Yes Neuro Stimulation: Yes Nerve Stimulator Range: 0.2 - 0.4 mA Blood on Needle Aspiration: No Smooth Injection of Local: Yes Pain with Injection of Local: No Prep: Chlorhexadine Needle: 22 x 50 mm Stimuplex, 21 x 100 mm Stimuplex Local: 0.25% Bupivicaine w/Clonidine 20 mcg/cc, Ropivacaine (Femoral NB 0.5% Ropivacaine 30ml with 8 mg Decadron and IPACK 20 ml 0.25% bupivacaine with clonidine 20mcg/ml) Volume (cc): 50ml Number of Attempts: 1 Complications: None/effective block Vitals: Vital Signs/O2 Sat/Glucose, Most Recent Temp Pulse Resp BP Pulse Ox 97.6 F 73 16 101/37 98 05/08/18 12:30 05/08/18 14:40 05/08/18 14:40 05/08/18 14:40 05/08/18 14:40
--- NOTE | 2018-05-08 14:54 | Discharge Summary ---
Orders not resulted at time of discharge: Pending orders 05/08/18 13:01 US anesthesia pain block [US] Routine 05/08/18 14:49 XR knee LT 1-2V [XR] Routine Hemoglobin and Hematocrit [HEME] Routine Date of Encounter: 05/10/18 Time of Encounter: 06:27 - Discharge Diagnosis (1) Patellar instability of left knee Priority: Primary Status: Acute (2) Status post total left knee replacement Priority: Secondary Status: Chronic (3) COPD (chronic obstructive pulmonary disease) Priority: Secondary Status: Chronic Qualifiers: COPD type: unspecified COPD Qualified Code(s): J44.9 - Chronic obstructive pulmonary disease, unspecified (4) Coronary artery disease Priority: Secondary Status: Chronic Qualifiers: Coronary Disease-Associated Artery/Lesion type: unspecified vessel or lesion type [place] vs. transplanted heart: [place] heart Associated angina: angina presence unspecified Qualified Code(s): I25.10 - Atherosclerotic heart disease of [place] coronary artery without angina pectoris (5) History of tobacco use Priority: Secondary Status: Chronic (6) Hyperlipidemia Priority: Secondary Status: Chronic Qualifiers: Hyperlipidemia type: unspecified Qualified Code(s): E78.5 - Hyperlipidemia, unspecified (7) Hypertension Priority: Secondary Status: Chronic Qualifiers: Hypertension type: unspecified Qualified Code(s): I10 - Essential (primary) hypertension (8) Lumbar radiculopathy Priority: Secondary Status: Chronic (9) Morbid obesity with BMI of 40.0-44.9, adult Priority: Secondary Status: Chronic (10) Obstructive sleep apnea Priority: Secondary Status: Chronic (11) S/P insertion of spinal cord stimulator Priority: Secondary Status: Chronic (12) Sacroiliitis Priority: Secondary Status: Chronic (13) Acute blood loss anemia Priority: Primary Status: Acute - Hospital Course Hospital course: Ms. Hernandez is a 57 year old female Status post revision patella The patient had an uneventful postoperative course. They received antibiotics and physical therapy and were discharged in stable condition. There will follow-up in the office in 2 weeks. Stable for discharge - Time Spent with Patient Total time spent providing and/or coordinating discharge services: - Discharge Medications Home Medications: Magnesium Oxide [Magnesium] 400 mg PO HS 02/04/15 [History] Omeprazole [PriLOSEC] 20 mg PO DAILY 02/04/15 [History] Pravastatin Sodium [Pravachol] 40 mg PO HS 02/04/15 [History] Albuterol Sulfate [Albuterol Inhaler] 2 puff IH Q4HR PRN 11/22/16 [History] Gabapentin [Neurontin] 800 mg PO TID 11/22/16 [History] Escitalopram [Lexapro] 20 mg PO HS 01/03/18 [History] Metoprolol Succinate [Toprol Xl] 25 mg PO HS 01/03/18 [History] Clindamycin [Cleocin] 150 mg PO Q6HR #20 capsule 05/08/18 [Rx] Losartan/Hydrochlorothiazide [Losartan-Hctz 100-25 mg Tab] 1 tab PO DAILY 05/08/18 [History] OxyCODONE Immed Rel [Roxicodone 5 MG] 5 mg PO Q6HR PRN 5 Days #20 tablet 05/08/18 [Rx] Allergies/Adverse Reactions: Allergy/AdvReac Type Severity Reaction Status Date / Time Penicillins Allergy Mild Rash Verified 05/06/18 13:38 pregabalin [From Lyrica] AdvReac Mild MEMORY LOSS Verified 05/06/18 13:38 latex AdvReac Unknown RASH Verified 05/06/18 13:38 TESTED NEGATIVE Primary care physician: Andrew Chen MD - Patient Status Disposition: Transfer Inpatient Rehab Fac Condition: Good Functional capacity at discharge: uses cane/walker Overall status at discharge: patient is progressing back to baseline - Discharge Instructions Follow Up With: Andrew Chen MD [Primary Care Provider] -
[2018-05-08] MEDS ORDERED: Dexamethasone 4 MG/ML VIAL ONE (15:12)
[2018-05-08] MEDS ORDERED: EPHEDrine 50 MG/ML VIAL ONE (15:12)
[2018-05-08] MEDS ORDERED: Lidocaine -MPF 2% 2 ML VIAL ONE (15:31)
[2018-05-08] MEDS ORDERED: Ondansetron 4 MG/2 ML VIAL ONE (15:31)
[2018-05-08] MEDS ORDERED: *HR* HYDROMORPHONE 2 MG/ML VIAL ONE (16:06)
--- NOTE | 2018-05-08 16:07 | Orthopedic Operative Note ---
Date of procedure: 05/08/18 Pre-op diagnosis: Left knee patellar instability Post-op diagnosis: same Procedure: procedure: Left knee Revision of patella component, Estimated blood loss: 50 mL Hardware Arthrex patella size 30 Procedure: Patient brought to the operating room and placed on the operating room table. After general anesthesia was administered the left knee was examined patient of full motion well-healed incision no varus valgus instability. The left lower extremity was prepped and draped in the sterile surgical fashion patient IV antibiotic prior skin incision. A standard midline incision was made centered over the patella excising the old incision with the patient was having some suture reactivity. Incision made through the skin and subcutaneous tissue hemostasis was obtained with Bovie cautery. A medial parapatellar approach was performed. Fluid was normal joint fluid and sent for Gram stain and culture. The patella was everted. Patella had some abnormal wear. It was transected below the component interface. It was sized to 30, local suture drill with the guide. The knee sat for 1 minute with an antibacterial solution. The component was cemented in place and held with the patellar holding clamp. The knee was irrigated out with Bactisure. It was then irrigated out pulse irrigation. The extensor mechanism was repaired with #2 FiberWire suture and #1 Vicryl suture. Subcutaneous tissues irrigated and closed deep #1 PDS suture superficially with 0 PDS sutures skin was closed with skin lily patient was placed in a sterile dressing postoperative brace extubated transferred to recovery room in stable condition. Anesthesia: PATRICEA Surgeon: Joshua More Was there an pediatric dental assistant present: No Estimated blood loss (cc): 50 Condition: stable Disposition: PACU
[2018-05-08 16:39] LABS: Hematocrit 36.3 % (35.3-44.9)
[2018-05-08] MEDS ORDERED: MOM Conc 10 ML UD.LIQ PO PRN (17:22)
[2018-05-08] MEDS ORDERED: traMADol 50 MG TABLET PO PRN (17:22)
[2018-05-08] MEDS ORDERED: Naloxone 0.4 MG/ML INJ IVP PRN (17:22)
[2018-05-08] MEDS ORDERED: Ondansetron 4 MG/2 ML VIAL IVP PRN (17:22)
[2018-05-08] MEDS ORDERED: Temazepam 15 MG CAPSULE PO PRN (17:22)
[2018-05-08] MEDS ORDERED: Sennosides 8.6 MG TABLET PO PRN (17:22)
--- NOTE | 2018-05-08 19:05 | Anesthesia Evaluation Post Op ---
Date of Encounter: 05/08/18 Time of Encounter: 19:04 - Vital Signs Vital Signs: Vital Signs/O2 Sat, Most Current Temp Pulse Resp BP Pulse Ox 97.8 F 92 12 96/65 92 05/08/18 17:23 05/08/18 17:23 05/08/18 17:23 05/08/18 17:23 05/08/18 17:35 - Lungs Lungs: Clear Ascult./Percussion - Airway Airway: Non-obstructed - Cardiovascular Regular Rate - Mental Status Mental Status: Alert & Oriented, Answers Appropriately - Pain Pain Scale: 3 Pain Scale used: Numeric (1 - 10) - Nausea Vomiting Nausea Vomiting: Not Present - Hydration Hydration: Ice chips - Discharge PostOp Status: Transfer Patient to floor
[2018-05-08] MEDS: Metoprolol XL (24 HR) Succ 25 MG TAB.ER.24H PO SCH (20:47)
[2018-05-08] MEDS: Gabapentin 400 MG CAPSULE PO SCH (20:47)
[2018-05-08] MEDS: Clindamycin 900 MG/50 ML 900 MG/50 ML IV.SOLN IVPB SCH (20:47)
[2018-05-08] MEDS: Magnesium Oxide 400 MG TABLET PO SCH (20:47)
[2018-05-09] MEDS: *HR* OxyCODONE Immed Rel 5 MG TABLET PO PRN ×2 (00:54→20:26)
[2018-05-09] MEDS: Clindamycin 900 MG/50 ML 900 MG/50 ML IV.SOLN IVPB SCH (03:59)
[2018-05-09] MEDS: Ringers Solution, Lactated 1,000 ML IVC SCH ×2 (04:14→23:38)
[2018-05-09 04:53] LABS: Hematocrit 32.6 % (35.3-44.9); Hemoglobin 10.1 g/dL (11.5-15.4)
[2018-05-09 05:16] LABS: BUN/Creatinine Ratio 16 (6-26); Blood Urea Nitrogen 17 mg/dL (6-20); Carbon Dioxide 25 mEq/L (23-29); Chloride 105 mEq/L (98-107); Glucose 145 mg/dL (70-105); Osmolality,Calculated 290 (280-300); Sodium 138 mEq/L (136-145); eGFR For Non-African Americans 52 (> 60)
--- NOTE | 2018-05-09 06:29 | Orthopedics Progress Note ---
Date of Encounter: 05/09/18 Time of Encounter: 06:28 - Assessment and Plan (1) Patellar instability of left knee Current Visit: Yes Status: Acute (2) Status post total left knee replacement Current Visit: No Status: Chronic (3) COPD (chronic obstructive pulmonary disease) Current Visit: No Status: Chronic Qualifiers: COPD type: unspecified COPD Qualified Code(s): J44.9 - Chronic obstructive pulmonary disease, unspecified (4) Coronary artery disease Current Visit: No Status: Chronic Qualifiers: Coronary Disease-Associated Artery/Lesion type: unspecified vessel or lesion type [place] vs. transplanted heart: [place] heart Associated angina: angina presence unspecified Qualified Code(s): I25.10 - Atherosclerotic heart disease of [place] coronary artery without angina pectoris (5) History of tobacco use Current Visit: No Status: Chronic (6) Hyperlipidemia Current Visit: No Status: Chronic Qualifiers: Hyperlipidemia type: unspecified Qualified Code(s): E78.5 - Hyperlipidemia, unspecified (7) Hypertension Current Visit: No Status: Chronic Qualifiers: Hypertension type: unspecified Qualified Code(s): I10 - Essential (primary) hypertension (8) Lumbar radiculopathy Current Visit: No Status: Chronic (9) Morbid obesity with BMI of 40.0-44.9, adult Current Visit: No Status: Chronic (10) Obstructive sleep apnea Current Visit: No Status: Chronic (11) S/P insertion of spinal cord stimulator Current Visit: No Status: Chronic (12) Sacroiliitis Current Visit: No Status: Chronic Subjective Interval history: Patient was seen this morning doing well without complaints. Afebrile vital signs stable. Operative extremity: Neurovascularly intact Dressing clean dry and intact Calves nontender Assessment and plan: Continue with postoperative care Hematocrit 32 plan for discharge today Objective Vital signs: Vital Signs Temp Pulse Resp BP Pulse Ox 05/09/18 04:08 97.5 F L 92 17 128/70 96 05/09/18 00:42 98.3 F 89 16 122/69 95 05/08/18 20:52 96 05/08/18 19:23 98 F 95 16 128/69 93 05/08/18 19:00 98 F 95 16 128/69 93 05/08/18 18:00 96 16 113/71 92 05/08/18 17:35 92 05/08/18 17:30 97.8 F 91 16 107/47 92 05/08/18 17:23 97.8 F 92 12 96/65 93 05/08/18 17:22 97.8 F 91 16 110/76 93 05/08/18 16:59 78 16 118/86 93 05/08/18 16:49 86 16 122/85 96 05/08/18 16:39 98.9 F 88 16 129/82 95 05/08/18 16:29 84 16 128/88 93 05/08/18 16:19 88 16 125/88 95 05/08/18 16:09 98.7 F 87 14 116/52 96 05/08/18 14:55 73 16 95/45 100 05/08/18 14:40 73 16 101/37 98 05/08/18 14:25 71 16 126/49 94 05/08/18 13:24 18 94 05/08/18 12:30 97.6 F 73 18 116/57 94 Intake and Output 05/08/18 05/08/18 05/09/18 15:59 23:59 07:59 Intake Total 1000 / 1000 50 / 50 Output Total 50 / 50 Balance 950 / 950 50 / 50 Intake: IV Fluids 1000 / 1000 50 / 50 Lactated Ringers 1,000 ML @ 25 1000 / 1000 mls/hr IVC .Q24H [facility] Rx#: [id number] Cleocin Premix 900 MG/50 ML 900 50 / 50 mg In 50 ml @ 50 mls/hr IVPB Q8H [facility] Rx#:[id number] Output: Estimated Blood Loss 50 / 50 Other: # Voids 1 Weight 104.326 kg 105.233 kg Patient Weight 05/09/18 23:59 Weight 105.233 kg - Labs CBC & BMP: 05/09/18 04:33 05/09/18 04:33 Labs: Abnormal lab results Hgb 10.1 g/dL (11.5-15.4) L 05/09/18 04:33 Hct 32.6 % (35.3-44.9) L 05/09/18 04:33 Est GFR (Non-Af Amer) 52 (> 60) L 05/09/18 04:33 Glucose 145 mg/dL (70-105) H 05/09/18 04:33 Consult Discharge Plan - Plan Referrals: Andrew Chen MD [Primary Care Provider] -
[2018-05-09] MEDS: Gabapentin 400 MG CAPSULE PO SCH ×2 (09:06→20:27)
[2018-05-09] MEDS: Losartan/HCTZ 50-12.5 TABLET PO SCH (09:06)
[2018-05-09] MEDS: *HR* OxyCODONE/APAP 5/325 TABLET PO PRN ×2 (09:31→17:04)
[2018-05-09] MEDS: Magnesium Oxide 400 MG TABLET PO SCH (20:27)
[2018-05-09] MEDS: Metoprolol XL (24 HR) Succ 25 MG TAB.ER.24H PO SCH (20:27)
[2018-05-10] MEDS: *HR* OxyCODONE/APAP 5/325 TABLET PO PRN (03:44)
[2018-05-10 05:26] LABS: Hematocrit 29.7 % (35.3-44.9); Hemoglobin 8.9 g/dL (11.5-15.4)
[2018-05-10 05:36] LABS: BUN/Creatinine Ratio 17 (6-26); Blood Urea Nitrogen 15 mg/dL (6-20); Calcium 8.7 mg/dL (8.6-10.3); Carbon Dioxide 28 mEq/L (23-29); Chloride 102 mEq/L (98-107); Glucose 120 mg/dL (70-105); Osmolality,Calculated 282 (280-300); Potassium 4.1 mEq/L (3.5-5.1); Sodium 135 mEq/L (136-145); eGFR For Non-African Americans > 60 (> 60)
--- NOTE | 2018-05-10 06:29 | Orthopedics Progress Note ---
Date of Encounter: 05/10/18 Time of Encounter: 06:29 - Assessment and Plan (1) Patellar instability of left knee Current Visit: Yes Status: Acute (2) Status post total left knee replacement Current Visit: No Status: Chronic (3) COPD (chronic obstructive pulmonary disease) Current Visit: No Status: Chronic Qualifiers: COPD type: unspecified COPD Qualified Code(s): J44.9 - Chronic obstructive pulmonary disease, unspecified (4) Coronary artery disease Current Visit: No Status: Chronic Qualifiers: Coronary Disease-Associated Artery/Lesion type: unspecified vessel or lesion type [place] vs. transplanted heart: [place] heart Associated angina: angina presence unspecified Qualified Code(s): I25.10 - Atherosclerotic heart disease of [place] coronary artery without angina pectoris (5) History of tobacco use Current Visit: No Status: Chronic (6) Hyperlipidemia Current Visit: No Status: Chronic Qualifiers: Hyperlipidemia type: unspecified Qualified Code(s): E78.5 - Hyperlipidemia, unspecified (7) Hypertension Current Visit: No Status: Chronic Qualifiers: Hypertension type: unspecified Qualified Code(s): I10 - Essential (primary) hypertension (8) Lumbar radiculopathy Current Visit: No Status: Chronic (9) Morbid obesity with BMI of 40.0-44.9, adult Current Visit: No Status: Chronic (10) Obstructive sleep apnea Current Visit: No Status: Chronic (11) S/P insertion of spinal cord stimulator Current Visit: No Status: Chronic (12) Sacroiliitis Current Visit: No Status: Chronic (13) Acute blood loss anemia Current Visit: Yes Status: Acute Subjective Interval history: Patient was seen this morning doing well without complaints. Afebrile vital signs stable. Operative extremity: Neurovascularly intact Dressing clean dry and intact Calves nontender Assessment and plan: Continue with postoperative care discharge today Objective Vital signs: Vital Signs Temp Pulse Resp BP Pulse Ox 05/10/18 04:46 98.1 F 66 18 92/53 97 05/09/18 23:38 98.5 F 71 18 103/48 97 05/09/18 20:35 97 05/09/18 18:56 98.2 F 81 20 110/71 97 05/09/18 15:47 97.8 F 81 16 127/78 97 05/09/18 10:44 98.3 F 94 18 111/64 98 05/09/18 06:32 97.4 F L 78 16 118/63 97 Intake and Output 05/09/18 05/09/18 05/10/18 15:59 23:59 07:59 Intake Total 840 / 840 790 / 790 0 / 0 Output Total 300 / 300 0 / 0 0 / 0 Balance 540 / 540 790 / 790 0 / 0 Intake: Oral 840 / 840 790 / 790 0 / 0 Output: Urine 300 / 300 0 / 0 0 / 0 Other: Meal Lunch Dinner Percent of Meal Consumed 100% 85% # Voids 2 1 Weight 105.9 kg Patient Weight 05/10/18 23:59 Weight 105.9 kg - Labs CBC & BMP: 05/10/18 04:44 05/10/18 04:44 Labs: Abnormal lab results Hgb 8.9 g/dL (11.5-15.4) L 05/10/18 04:44 Hct 29.7 % (35.3-44.9) L 05/10/18 04:44 Sodium 135 mEq/L (136-145) L 05/10/18 04:44 Glucose 120 mg/dL (70-105) H 05/10/18 04:44 Consult Discharge Plan - Plan Referrals: Andrew Chen MD [Primary Care Provider] -
[2018-05-10] MEDS: Gabapentin 400 MG CAPSULE PO SCH (08:57)
[2018-05-10] MEDS: Losartan/HCTZ 50-12.5 TABLET PO SCH (08:57)
--- NOTE | 2018-05-10 10:27 | Physician Discharge Referral ---
ExtendedCare Referral Info Transfer To: [facility] Provider in Charge: bob calderon - Diagnosis (1) Patellar instability of left knee Priority: Primary Status: Acute (2) Status post total left knee replacement Priority: Primary Status: Chronic (3) COPD (chronic obstructive pulmonary disease) Priority: Secondary Status: Chronic (4) Coronary artery disease Priority: Secondary Status: Chronic (5) History of tobacco use Priority: Secondary Status: Chronic (6) Hyperlipidemia Priority: Secondary Status: Chronic (7) Hypertension Priority: Secondary Status: Chronic (8) Lumbar radiculopathy Priority: Secondary Status: Chronic (9) Morbid obesity with BMI of 40.0-44.9, adult Priority: Secondary Status: Chronic (10) Obstructive sleep apnea Status: Chronic (11) S/P insertion of spinal cord stimulator Priority: Secondary Status: Chronic (12) Sacroiliitis Priority: Secondary Status: Chronic (13) Acute blood loss anemia Priority: Primary Status: Acute Prognosis: Good Aware of Diagnosis: Patient, Family Aware of Prognosis: Patient, Family - Transfer Medications Home Medications: Magnesium Oxide [Magnesium] 400 mg PO HS 02/04/15 [History] Omeprazole [PriLOSEC] 20 mg PO DAILY 02/04/15 [History] Pravastatin Sodium [Pravachol] 40 mg PO HS 02/04/15 [History] Albuterol Sulfate [Albuterol Inhaler] 2 puff IH Q4HR PRN 11/22/16 [History] Gabapentin [Neurontin] 800 mg PO TID 11/22/16 [History] Escitalopram [Lexapro] 20 mg PO HS 01/03/18 [History] Metoprolol Succinate [Toprol Xl] 25 mg PO HS 01/03/18 [History] Clindamycin [Cleocin] 150 mg PO Q6HR #20 capsule 05/08/18 [Rx] Losartan/Hydrochlorothiazide [Losartan-Hctz 100-25 mg Tab] 1 tab PO DAILY 05/08/18 [History] OxyCODONE Immed Rel [Roxicodone 5 MG] 5 mg PO Q6HR PRN 5 Days #20 tablet 05/08/18 [Rx] Allergies/Adverse Reactions: Allergy/AdvReac Type Severity Reaction Status Date / Time Penicillins Allergy Mild Rash Verified 05/06/18 13:38 pregabalin [From Lyrica] AdvReac Mild MEMORY LOSS Verified 05/06/18 13:38 latex AdvReac Unknown RASH Verified 05/06/18 13:38 TESTED NEGATIVE - Respiratory Orders Smoking Cessation: Smoking cessation has been advised. For more information, call the [place] Tobacco Quit Line at 8-676-GSHG-NOW. CERTIFICATION: I certify that the transfer of the above named patient to an Extended Care Facility is necessary for the continuing treatment of the diagnosis listed. The above information is true and accurate reflection of patient's current condition. Confidential - Redisclosure prohibited without a patient's written consent.
[2018-05-10] MEDS: *HR* OxyCODONE Immed Rel 5 MG TABLET PO PRN (11:57)
[2018-05-10] MEDS ORDERED: Ketorolac 30 MG/ML VIAL IVP ONE (14:19)
[2018-05-10 15:30] VITALS: BP 120/63
== END 2018-05-10 16:50 | DRG 313 ==
LOC: SAMDAY 12:07 → 3NENU 17:18
PROVIDERS: ADMIT Orthopaedic Surgery; ATTEND Orthopaedic Surgery

== ENCOUNTER 2018-10-08 10:51 | Observation (INO) ==
[2018-10-08] MEDS ORDERED: 0.9 % Sodium Chloride 1,000 ML IVC SCH (11:15)
[2018-10-08] MEDS ORDERED: 0.9 % Sodium Chloride 1,000 ML ONE ×2 (11:40→14:38)
[2018-10-08] MEDS ORDERED: *HR* Midazolam HCl 2 MG/2 ML VIAL ONE (14:38)
[2018-10-08] MEDS ORDERED: *HR* FentaNYL (PF) 100 MCG/2 ML VIAL ONE (14:38)
[2018-10-08] MEDS ORDERED: Heparin 1,000 UNITS/500 mL 500 ML ONE (14:38)
[2018-10-08] MEDS ORDERED: ISOVUE-370 200 ML INFUS..BTL ONE ×2 (14:38→15:38)
[2018-10-08] MEDS ORDERED: *HR* Heparin 10,000 UNIT/10 ML VIAL ONE (14:38)
[2018-10-08] MEDS ORDERED: Nitroglycerin 1,000 MCG/10 ML VIAL IV ONE (14:38)
[2018-10-08] MEDS ORDERED: Tirofiban 12.5 MG/250ML 12.5 MG/250 ML BAG ONE (15:35)
--- NOTE | 2018-10-08 16:06 | Invasive Diagnostic Lab Proc ---
Name: Isabel Hernandez Date of Study: 10/08/2018 Date: 1960 Ht: 62.0in Medical Record#: [id number] Age: 58 Wt: 223.55lb Gender: Female BSA: 2. Order #: [id number] BMI: 40.88 Physicians Procedure Physician: Maryann Abad MD Referring MD: Andrew Chen MD Referring MD: Staff Name Position Time In Abdias Bartholomew RN Pre-Op Nurse 11:10 AM Nubia Aldana RT (R) Pre-Op Nurse 11:10 AM Twan Christine RN Cylinder Tester 02:53 PM Joshua Nevarez RT (R) Scrub 02:53 PM Yue Marie RT (R) Monitor 02:53 PM Eddie Nguyễn RN Nurse 02:53 PM Indications Indication Unstable Angina Abnormal Test - Stress Procedures Performed Procedure L HRT ARTERY/VENTRICLE ANGIO IV Doppler BLD Flow 1st Vessel PRQ CARD SRIKANTH STENT W/ANGIO 1 VSL Pre-Procedure Checklist Informed consent is complete signed and on chart. H&P is on chart. ID band is on and ID verified with patient. Patient NPO for procedure The procedure was described for the patient and questions were answered. Blood Pressure: 113/65 ECG is on chart. Rhythm: NSR Plan of Care Patient will tolerate the procedure without complications. Adequate level of comfort will be maintained. Hemodynamics will remain stable Patient will recover from procedure without complications. Respiratory function will be maintained. Cardiac rhythm will remain stable. Patient temperature will be maintained. Patient and/or family have verbalized understanding of the procedure. Patient Education Chief Complaint/Reason for Test: Cardiac Cath Developmental Category: Adult (18-64 years) Developmentally Appropriate for Age: Yes Learning Barriers: None Education Needs: Procedure Education Method: Verbal Information Taught: Cardiac Cath Educational Evaluation: Able to repeat information Intravenous Access Time IV Size Location DC'd Fluid/Drip Rate Units RN 11:34 AM Started with 22g 1 " Rt Wrist 0.9NaCl 50 ml/hr Abdias Bartholomew RN Allergies PCN (penicillin) pregabalin Penicillins latex Vital Signs Time BP (mmHg) HR (bpm) O2 Sat. RR (bpm) LOC 11:39 AM 113 / 65 79 96 % 18 5 = Fully awake and oriented or at pre-proc level 02:54 PM / % 5 = Fully awake and oriented or at pre-proc level 02:54 PM / % 4 = Oriented but drowsy 03:09 PM / % 4 = Oriented but drowsy 03:24 PM / % 4 = Oriented but drowsy 03:00 PM 138 / 59 75 98 % 12 03:05 PM 139 / 69 76 99 % 15 03:10 PM 132 / 75 75 95 % 12 03:16 PM 125 / 51 71 96 % 19 03:20 PM 129 / 74 78 96 % 24 03:26 PM 125 / 71 82 98 % 23 03:30 PM 119 / 67 88 93 % 9 03:35 PM 116 / 69 100 99 % 21 03:41 PM 149 / 74 88 95 % 16 03:45 PM 144 / 63 83 100 % 22 Procedural Medications Time Medication Dose Units Method Given By 02:54 PM Oxygen 2 L/min nasal cannula Twan Christine RN 02:56 PM Versed 1 mg Intravenous Twan Christine RN 02:57 PM Fentanyl 50 mcg Intravenous Twan Christine RN 03:14 PM Lidocaine 2% 10 ml Subcutaneous Maryann Abad MD 03:18 PM Versed 0.5 mg Intravenous Twan Christine RN 03:18 PM Fentanyl 25 mcg Intravenous Twan Christine RN 03:26 PM Heparin 4000 units Intravenous Twan Christine RN 03:32 PM 90mg Adenosine in 90 ml 0.9 NS 849 mcg Intravenous wTan Christine RN 03:36 PM Heparin 1000 units Intravenous Twan Christine RN 03:37 PM Aggrastat Bolus: 50 ml Intravenous Twan Christine RN 03:37 PM Aggrastat 12.5mg/250ml 18 ml Intravenous Twan Christine RN 03:44 PM Versed 0.5 mg Intravenous Twan Christine RN 03:44 PM Fentanyl 25 mcg Intravenous Twan Christine RN 03:45 PM Plavix 600 mg Orally Twan Christine RN Fermin Score Preprocedure Postprocedure Activity 2- Moves 4 extremities sustained head lift Activity 2- Moves 4 extremities sustained head lift Circulation 2- SBP +/= 20 points of pre-anesthetic level Circulation 2- SBP +/= 20 points of pre-anesthetic level Consciousness 2- Awake and alert oriented x 3 Consciousness 2- Awake and alert oriented x 3 O2 Saturation 2- Able to maintain O2 satruation of 92% on room air O2 Saturation 2- Able to maintain O2 satruation of 92% on room air Respiratory 2- Able to deep breathe and cough well Respiratory 2- Able to deep breathe and cough well Total Score 10 Total Score 10 Contrast Agent: Isovue Diagnostic Contrast: 133 ml Total Contrast: 133 ml Fluoro Dose: 49 mGy Procedure Log Time Note Enter By 11:41 AM Risk for fall? Yes, Medications (change in amt./frequency,newly prescribed,potential combinations) [email or web address] 11:41 AM Evidence of mental, physical, or emotional abuse? No [email or web address] 11:41 AM Does patient have suicidal ideations? No [email or web address] 02:45 PM CathStat 02:53 PM Pt arrived to [employer] 2 at 14:53 tsites 02:53 PM Twan Christine RN Position: Cylinder Tester Time in: 14:53 tsites 02:53 PM Joshua Nevarez RT (R) Position: Scrub Time in: 14:53 tsites 02:53 PM Yue Marie RT (R) Position: Monitor Time in: 14:53 tsites 02:53 PM Patient charges- Angio tray pack, Navilyst 3mm J, Pulse Oximetry and ACIST tubing and transducer tsites 02:53 PM IV Supplies used: J loop Angio Cath. tsites 02:54 PM Eddie Nguyễn RN Position: Nurse Time in: 14:53 tsites 02:54 PM Physician arrived 14:54 tsites 02:54 PM Meet and greet completed tsites 02:54 PM Sign in performed according to hospital policy. Informed consent was obtained. tsites 02:54 PM Procedure start 14:54 tsites 02:54 PM Time: 14:54 Patient comfortable and pain free: Yes tsites 02:54 PM Time: 14:54LOC: 5 = Fully awake and oriented or at pre-proc level tsites 02:54 PM Time: 14:54 Oxygen on at 2 L/min per nasal cannula by Twan Christine RN tsites 02:56 PM Case Delayed Previous case ran long tsites 02:57 PM Vitals capture started with the following parameters, Patient=Adult, Interval=5 min, Initial Vimnjuab=596 mmHg, Deflation Rate=5 mmHg, Cuff placed on Left Arm 02:57 PM Time: 14:56 Versed 1 mg Intravenous Given by Twan Christine RN tsites 02:58 PM Time: 14:57 Fentanyl 50 mcg Intravenous Given by Twan Christine RN tsites 02:58 PM Recorded ECG: HR=76 Condition=Condition 1 02:58 PM Recorded ECG: HR=78 Condition=Condition 1 02:59 PM Hair removed from procedure site in holding area using clippers. Bilateral groin prepped with Chloraprep by Twan Christine RN, then patient was draped. Skin intact. tsites 03:00 PM Vitals capture started with the following parameters, Patient=Adult, Interval=5 min, Initial Nchznuod=258 mmHg, Deflation Rate=5 mmHg, Cuff placed on Left Arm 03:00 PM HR=75 bpm, APWV=206/59 mmhg, SpO2=98.0 %, Resp=12 B/min, EtCO2=29 mmHg, Comment=nsr 03:05 PM HR=76 bpm, JKYS=017/69 mmhg, SpO2=99.0 %, Resp=15 B/min 03:09 PM Time: 14:54 Patient comfortable and pain free: Yes tsites 03:09 PM Time: 14:54LOC: 4 = Oriented but drowsy tsites 03:10 PM HR=75 bpm, JNRI=875/75 mmhg, SpO2=95 %, Resp=12 B/min 03:13 PM Time out was performed according to hospital policy. Conscious sedation and anesthesia was achieved (see medication log with in this report above) tsites 03:13 PM Pressure channel 1 zeroed. 03:14 PM Time: 15:14 10 ml Lidocaine 2% to right groin Subcutaneous Given by Maryann Abad MD tsites 03:15 PM Micro-Introducer Kit utilized for sheath placement tsites 03:15 PM Access obtained by percutaneous puncture. 4Fr 10cm Micro sheath placed in right Femoral artery. [id number] tsites 03:15 PM 4cc of contrast injected tsites 03:16 PM Sheath exchanged for a 6 Fr 11 cm Cordis Leyla sheath [id number] tsites 03:16 PM HR=71 bpm, BAKI=237/51 mmhg, SpO2=96.0 %, Resp=19 B/min 03:17 PM Recorded Pressure: LV, HR=72, Condition=Condition 1 (Left Ventricle) LV 112/19/20 03:17 PM Recorded Pressure: LV, Ao, HR=74, Condition=Condition 1 (Left Ventricle) LV 107/21/20, (Aorta) Ao 88/58/72 03:17 PM 5Fr FR 4 catheter inserted over the wire DNC tsites 03:17 PM 0.035 145cm Navilyst 3mmJ wire [id number] tsites 03:17 PM Catheter crossed the aortic valve and was selectively placed in the left ventricle. Pressures recorded on pullback for left heart catheterization. tsites 03:18 PM Time: 15:18 Versed 0.5 mg Intravenous Given by Twan Christine RN tsites 03:18 PM Time: 15:18 Fentanyl 25 mcg Intravenous Given by Twan Christine RN tsites 03:18 PM RCA angiography performed in multiple views. tsites 03:18 PM wire reinserted catheter removed tsites 03:18 PM 5Fr FL 4 catheter inserted over the wire [facility] tsites 03:19 PM Recorded Pressure: Ao, HR=76, Condition=Condition 1 (Aorta) Ao 117/72/91 03:19 PM LCA angiography performed in multiple views. tsites 03:20 PM HR=78 bpm, BGRQ=529/74 mmhg, SpO2=96.0 %, Resp=24 B/min, EtCO2=29 mmHg 03:21 PM wire reinserted catheter removed tsites 03:21 PM Physician reviewing films tsites 03:22 PM Lesion found in Mid RCA. Pre Stenosis: 20 Pre TRACEY Flow: tsites 03:22 PM Lesion found in Proximal LMCA. Pre Stenosis: 25 Pre TRACEY Flow: tsites 03:22 PM Lesion found in Mid LMCA. Pre Stenosis: 25 Pre TRACEY Flow: tsites 03:22 PM Lesion found in Distal LMCA. Pre Stenosis: 25 Pre TRACEY Flow: tsites 03:22 PM Coronary Dominance: right tsites 03:23 PM Lesion found in Mid LAD. Pre Stenosis: 60 Pre TRACEY Flow: tsites 03:23 PM Lesion found in 1st Diagonal. Pre Stenosis: 50 Pre TRACEY Flow: tsites 03:23 PM Left Main Coronary Artery with 25% stenosis tsites 03:23 PM Mid/Distal Left Anterior Descending Coronary Artery and diagonal branches with 60% stenosis. If graft is supplying this area, 0 % stenosis tsites 03:23 PM Right Coronary, Right Posterior Descending Arteries with Right Posterolateral and Acute Marginal branches with 20 % stenosis. If graft is supplying this area, 0 % stenosis tsites 03:24 PM Time: 15:09 Patient comfortable and pain free: Yes tsites 03:24 PM Time: 15:09LOC: 4 = Oriented but drowsy tsites 03:25 PM Inflation device was opened. tsites 03:26 PM .014 [employer] [place] 180cm guide wire across target lesion- successful. reused? No tsites 03:26 PM HR=82 bpm, ZPIO=113/71 mmhg, SpO2=98.0 %, Resp=23 B/min, EtCO2=36 mmHg 03:26 PM 6Fr XB LAD 3.5 [place] Bright-Tip guide catheter was used to cannulate the PCI vessel successfully. reused? No tsites 03:26 PM Time: 15:26 Heparin 4000 units Intravenous Given by Twan Christine RN tsites 03:28 PM [ Start FFR sample: Equalized ] 03:29 PM Pressure channel 4 zeroed. 03:30 PM Asist FFR Catheter advanced to target lesion. tsites 03:30 PM HR=88 bpm, VXKR=315/67 mmhg, SpO2=93 %, Resp=9 B/min 03:31 PM Pressure channel 4 equalized to channel 1. 03:31 PM Pressure channel 4 equalized to channel 1. 03:31 PM Pressure channel 4 equalized to channel 1. 03:33 PM Time: 15:32 90mg Adenosine in 90 ml 0.9 NS 849 mcg Intravenous Given by Twan Christine RN Beckman pump tsites 03:33 PM Recorded Pressure: Ao, PV1, HR=87, Condition=Condition 1 (Aorta) Ao 106/74/90, (Portal Vein) PV1 99/102/72 03:34 PM Recorded Pressure: Ao, PV1, HR=96, Condition=Condition 1 (Aorta) Ao 70/50/60, (Portal Vein) PV1 69/69/49 03:34 PM adenosine stopped tsites 03:35 PM FFR Measurement: 0.71 lad tsites 03:35 PM CO=753 bpm, MBCV=363/69 mmhg, SpO2=99.0 %, Resp=21 B/min 03:36 PM Time: 15:36 Heparin 1000 units Intravenous Given by Twan Christine RN tsites 03:37 PM Time: 15:37 Aggrastat Bolus: 50 ml Intravenous Given by Twan Christine RN Beckman pump tsites 03:37 PM Time: 15:37 Aggrastat 12.5mg/250ml 18 ml Intravenous Given by Twan Christine RN Beckman pump tsites 03:38 PM PCI Status Elective tsites 03:38 PM 2.5 mm x 8 mm Emerge Monorail balloon across target lesion- successful. reused? No tsites 03:38 PM Balloon inflated @ 6 anthony for 8 seconds tsites 03:39 PM Recorded Pressure: Ao, HR=88, Condition=Condition 1 (Aorta) Ao 114/68/89 03:39 PM Time: 15:24 Patient comfortable and pain free: Yes tsites 03:40 PM Time: 15:24LOC: 4 = Oriented but drowsy tsites 03:40 PM Balloon catheter removed intact. tsites 03:40 PM 2.75mm x 12mm Synergy drug-eluting stent across target lesion- successful Lot #[id number] tsites 03:41 PM HR=88 bpm, YBAI=196/74 mmhg, SpO2=95.0 %, Resp=16 B/min 03:42 PM Stent deployed @ 11 anthony for 4 seconds tsites 03:42 PM Stent balloon reinflated @ 14 anthony for 3 seconds tsites 03:42 PM Stent delivery system removed intact. tsites 03:43 PM Guide wire removed intact. tsites 03:43 PM Guide catheter removed intact. tsites 03:43 PM Procedure completed at 15:43 10/08/2018 tsites 03:43 PM Did you address TRACEY flow and Dominance? YesCoronary Dominance: right tsites 03:44 PM Sign out completed: Radiation Dose 358 mGy, 48.6 Gy/cm2 Fluoro Time: 5.6 Isovue 370 - 200ml contrast 133 ml given by Maryann Abad MD. Complications: None. The patient was discharged out of the label designer in stable condition. Sedation minutes 49. Cardiac Rehab Consult needed: Yes. Confirmed administered medications: Yes tsites 03:44 PM Time: 15:44 Versed 0.5 mg Intravenous Given by Twan Christine RN tsites 03:45 PM Time: 15:44 Fentanyl 25 mcg Intravenous Given by Twan Christine RN tsites 03:45 PM Time: 15:45 Plavix 600 mg Orally Given by Twan Christine RN tsites 03:45 PM HR=83 bpm, NCNU=068/63 mmhg, KgD5=487 %, Resp=22 B/min 03:46 PM Isovue 370 - 200ml,1 Bottle(s) used. tsites 03:46 PM Arterial sheath pulled, Angio-seal closure device used and was Successful [id number] S/N. tsites 03:46 PM Estimated Blood Loss: less than 20cc tsites 03:46 PM Post ECG NSR tsites 03:47 PM Post Blood Pressure 144/63 tsites 03:47 PM 15:47 Post Pulses Bilateral DP & PT 1+ tsites 03:47 PM Information taught Cardiac Cath, PCI, and Angioseal tsites 03:47 PM Education needs Procedure, Plan of Care, and Responsibilities of Patient in Care tsites 03:47 PM Learning barriers :None tsites 03:47 PM Education Methods Verbal tsites 03:47 PM Education evaluation Able to repeat information tsites 03:47 PM Site status No bleeding/hematoma - Rt Groin as reported by Joshua Nevarez RT (R) at 15:47 tsites 03:47 PM Opsite applied tsites 03:48 PM Plavix, Effient or Brilinta given Yes tsites 03:50 PM Delay to floor Bed availability tsites 03:50 PM Patient out of room: 15:50 tsites 03:50 PM Family placed in consult room. tsites 03:56 PM Report given to adiel PARIKH Pt taken to 3B Room #48. 15:56 tsites Complications Complication None Hemodynamics Pressures Site Systolic/A Wave Diastolic/V Wave Mean LV 112 19 20 LV 107 21 20 AO 88 58 72 AO 117 72 91 AO 106 74 90 PV1 99 102 72 AO 70 50 60 PV1 69 69 49 AO 114 68 89 Post Procedure Information Blood Pressure: 144/63 mmHg Rhythm: NSR Post procedural instructions were given Closure Device Time Device Success/Fail 10/08/2018 3:50:00 PM Angio-Seal VIP Successful Site Checks Time Location Status Staff Sheath In? Note 03:47 PM Rt Groin No bleeding/hematoma Josuha Nevarez RT (R) Pulses Time Site Pre-Procedure Post-Procedure Note 10/08/2018 11:34:00 AM Bilateral DP & PT 1+ 10/08/2018 11:34:00 AM Bilateral radial 2+ 3:47:00 PM Bilateral DP & PT 1+ Updated by Yue Marie RT (R) on 10/08/2018 3:57:29 PM Yue Marie RT electronically signed on 10/08/2018 3:58:11 PM with status of Final
[2018-10-08] MEDS ORDERED: Tirofiban 12.5 MG/250ML 12.5 MG/250 ML BAG IVC SCH (16:30)
[2018-10-08] MEDS: Acetaminophen 325 MG TABLET PO PRN (18:19)
[2018-10-09] MEDS: Acetaminophen 325 MG TABLET PO PRN ×2 (01:41→20:53)
[2018-10-09 05:02] LABS: Hematocrit 31.9 % (35.3-44.9)
[2018-10-09 05:04] LABS: Hemoglobin 9.9 g/dL (11.5-15.4)
[2018-10-09 05:18] LABS: BUN/Creatinine Ratio 17 (6-26); Blood Urea Nitrogen 13 mg/dL (8-23); eGFR For Non-African Americans > 60 (> 60)
[2018-10-09] MEDS: 0.9 % Sodium Chloride 1,000 ML IVC SCH ×2 (07:26→11:38)
[2018-10-09] MEDS: Aspirin 81 MG TAB.CHEW PO SCH (09:30)
--- NOTE | 2018-10-09 09:32 | Discharge Summary ---
Orders not resulted at time of discharge: Pending orders 10/08/18 16:18 ECG 12 lead ECG [ECG] Stat 10/09/18 06:00 ECG 12 lead ECG [ECG] AM 0600 Date of Encounter: 10/09/18 Time of Encounter: 09:30 - Discharge Diagnosis (1) Coronary artery disease Priority: Primary Status: Chronic Qualifiers: Coronary Disease-Associated Artery/Lesion type: [place] artery [place] vs. transplanted heart: [place] heart Associated angina: without angina Qualified Code(s): I25.10 - Atherosclerotic heart disease of [place] coronary artery without angina pectoris - Hospital Course Hospital course: Ms. Hernandez is a 58 year old female with abnormal stress test presented for outpatient PCI by Dr. Abad 10/08/2018 s/p stenting. - Time Spent with Patient Total time spent providing and/or coordinating discharge services: - Discharge Medications Prescriptions: New Clopidogrel [Plavix] 75 mg PO DAILY #30 tablet Continued Omeprazole [PriLOSEC] 20 mg PO QAM Pravastatin Sodium [Pravachol] 40 mg PO QPM Magnesium Oxide [Magnesium] 400 mg PO QPM PRN PRN Reason: LOW MAGNESIUM Escitalopram [Lexapro] 10 mg PO QPM Metoprolol Succinate [Toprol Xl] 25 mg PO QAM Losartan/Hydrochlorothiazide [Losartan-Hctz 100-25 mg Tab] 1 tab PO QPM Aspirin [Lo-Dose Aspirin EC] 81 mg PO QAM Loperamide [Imodium] 2 mg PO QID PRN PRN Reason: LOOSE STOOLS Gabapentin 600 mg PO TID Home Medications: Magnesium Oxide [Magnesium] 400 mg PO QPM PRN 02/04/15 [History] Omeprazole [PriLOSEC] 20 mg PO QAM 02/04/15 [History] Pravastatin Sodium [Pravachol] 40 mg PO QPM 02/04/15 [History] Escitalopram [Lexapro] 10 mg PO QPM 01/03/18 [History] Metoprolol Succinate [Toprol Xl] 25 mg PO QAM 01/03/18 [History] Losartan/Hydrochlorothiazide [Losartan-Hctz 100-25 mg Tab] 1 tab PO QPM 05/08/18 [History] Aspirin [Lo-Dose Aspirin EC] 81 mg PO QAM 10/08/18 [History] Gabapentin 600 mg PO TID 10/08/18 [History] Loperamide [Imodium] 2 mg PO QID PRN 10/08/18 [History] Clopidogrel [Plavix] 75 mg PO DAILY #30 tablet 10/09/18 [Rx] Allergies/Adverse Reactions: Allergy/AdvReac Type Severity Reaction Status Date / Time Penicillins Allergy Mild Rash/HIVES/SCRATCHY Verified 10/08/18 20:41 THROAT pregabalin [From Lyrica] AdvReac Mild FORGETFULL/ Verified 10/08/18 20:41 LETHARGIC latex AdvReac Unknown RASH/BLISTE Verified 10/08/18 20:41 RS Date of admission: 10/08/18 Primary care physician: Andrew Chen MD Consults: 10/08/18 16:18 Consult to Cardiac Rehabilitation-Phase1 [CONS] Routine Comment: Reason for Consult: post op PCI Call Completed: Yes Discharging clinician: Joel Duran Anticipated date of discharge: 10/09/18 Physical Examination Vital Signs, Last 4 Hours Temp Pulse Resp BP Pulse Ox 10/09/18 07:45 97.8 F 68 16 132/70 95 - Discharge Instructions Follow Up With: Andrew Chen MD [Primary Care Provider] -
[2018-10-09] MEDS ORDERED: Magnesium Oxide 400 MG TABLET PO PRN (10:47)
--- NOTE | 2018-10-09 10:53 | Cardiology Progress Note ---
Date of Encounter: 10/09/18 Time of Encounter: 10:45 Assessment and Plan (1) Coronary artery disease Current Visit: No Status: Chronic Per Cardiology: History of CAD. Status post left heart catheterization by Dr. Abad yesterday and underwent PTCA/drug-eluting stent to mid LAD 60% lesion. Has remaining nonobstructive proximal left main 25%, mid left main 25%, distal left main 25%; diagonal 1 50%; mid RCA 20% lesions. On aspirin and new medication of Plavix. Resuming home medications of statin, beta claudio, ARB. Discharge postponed today d/t anemia/GI bleed. Qualifiers: Coronary Disease-Associated Artery/Lesion type: [place] artery [place] vs. transplanted heart: [place] heart Associated angina: without angina Qualified Code(s): I25.10 - Atherosclerotic heart disease of [place] coronary artery without angina pectoris (2) Acute blood loss anemia Current Visit: No Status: Acute Per Cardiology: Reports of bright red blood and dark tarry stools 2 this a.m. with addition of Plavix status post stenting. H&H downward trend. We will send stool for occult blood. Will consult GI. Discussed with Dr. Abad and Dr. Swartz. Discussion w patient/family: The assessment and plan as outlined above was discussed with the patient and/or family members who expressed understanding and agreement. All questions were answered. Thank you for involving us in the care of your patient. Please call with any questions. Subjective Principal diagnosis: CAD, S/p Stent Interval history: Denies any chest pain, short of breath, palpitations. Denies any concerns from her right groin site. Reports bright red stool this morning and dark tarry stools. Reports history of polyps. Reports history of diarrhea. Has not been seen by GI recently. Reports episode happened twice this morning. Objective Vital Signs, Last 4 Hours Temp Pulse Resp BP Pulse Ox 10/09/18 07:45 97.8 F 68 16 132/70 95 General: Conversant, No Apparent Distress HEENT: Atraumatic, Normocephaly, Mucus Membranes Moist Neck: No JVD, Normal carotid pulses Cardiac: Reg Rate and Rhythm, Normal S1 and S2, No Murmur Lungs: Normal Breath Sounds, No Wheeze, Rales, Rhonchi Neuro: Alert and responsive, No focal deficits noted Abdomen: Soft, Non-Tender Skin: No rashes noted on visualized skin, Other (Right groin site dressing intact, no hematoma, no ecchymosis, no bleeding, right PT and DP pulses 1+ palpable) Musculoskeletal: No Chest Wall Tenderness Extremities: No Clubbing, No Cyanosis, No Edema, Normal Pulses Results 10/09/18 04:17 10/09/18 04:17 Lab Results Laboratory Tests 10/06/18 10/09/18 10/09/18 15:26 04:17 04:17 Hgb 11.7 9.9 L D Hct 37.1 31.9 L Creatinine 0.75 Est GFR (Non-Af Amer) > 60 Active Medications Acetaminophen (Tylenol) 650 mg PO Q6HR PRN PRN Reason: Pain Stop: 04/09/19 17:17 Last Admin: 10/09/18 01:41 Dose: 650 mg Documented by: Aspirin (Aspirin) 81 mg PO DAILY [facility] Stop: 04/10/19 09:01 Last Admin: 10/09/18 09:30 Dose: 81 mg Documented by: Clopidogrel Bisulfate (Plavix) 75 mg PO DAILY [facility] Stop: 04/10/19 09:01 Last Admin: 10/09/18 09:30 Dose: 75 mg Documented by: Escitalopram Oxalate (Lexapro) 10 mg PO QPM [facility] Stop: 04/10/19 18:01 Sodium Chloride (0.9 % Sodium Chloride) 1,000 mls @ 25 mls/hr IVC .Q24H [facility] Stop: 04/09/19 12:16 Last Admin: 10/09/18 07:26 Dose: Not Given Documented by: Loperamide HCl (Imodium) 2 mg PO QID PRN PRN Reason: LOOSE STOOLS Stop: 04/10/19 10:48 Metoprolol Succinate (Toprol Xl) 25 mg PO QAM [facility] Stop: 04/10/19 11:01 Non-Formulary Medication (Gabapentin) 600 mg PO TID [facility] Stop: 04/10/19 11:01 Non-Formulary Medication (Losartan/Hydrochlorothiazide [Losartan-Hctz 100-25 Mg Tab]) 1 tab PO QPM [facility] Stop: 04/10/19 18:01 Non-Formulary Medication (Magnesium Oxide [Magnesium]) 400 mg PO QPM PRN PRN Reason: LOW MAGNESIUM Non-Formulary Medication (Pravastatin Sodium [Pravachol]) 40 mg PO QPM [facility] Stop: 04/10/19 18:01 Omeprazole (Prilosec) 20 mg PO QAM [facility]; Protocol Stop: 04/10/19 11:01 - Imaging and Cardiology Cardiac cath: report reviewed Consult Discharge Plan - Plan Referrals: Andrew Chen MD [Primary Care Provider] - Prescriptions: Clopidogrel [Plavix] 75 mg PO DAILY #30 tablet
[2018-10-09] MEDS: Metoprolol XL (24 HR) Succ 25 MG TAB.ER.24H PO SCH (11:39)
[2018-10-09] MEDS: Gabapentin 300 MG CAPSULE PO SCH ×3 (11:39→20:41)
--- NOTE | 2018-10-09 13:55 | Event Note ---
Date of Encounter: 10/09/18 Time of Encounter: 12:30 Reviewed chart. Hgb 11.7 on 10/06/18 and today Hgb 9.9. Patient with BRBPR and dark tarry stools. Plan for EGD and colonoscopy tomorrow. Clear liquid diet today, no red or purple. NPO at midnight. If unable tolerate NuLytely please use MiraLAX prep. If not clear by 6 AM, give 2 tap water enemas.
[2018-10-09] MEDS ORDERED: SODIUM CHLORIDE/NAHCO3/KCL/PEG 4,000 ML SOLN.RECON PO ONE (17:00)
[2018-10-09] MEDS: Losartan/HCTZ 50-12.5 TABLET PO SCH (17:02)
[2018-10-10] MEDS ORDERED: Propofol 500 MG/50 ML INFUS..BTL ONE (06:32)
[2018-10-10] MEDS ORDERED: Lidocaine -MPF 2% 2 ML VIAL ONE (06:33)
[2018-10-10 07:03] LABS: Hematocrit 34.6 % (35.3-44.9); Hemoglobin 10.8 g/dL (11.5-15.4)
[2018-10-10] MEDS ORDERED: *HR* Propofol 200 MG/20 ML VIAL IVP ONE ×2 (07:41→07:47)
--- NOTE | 2018-10-10 07:49 | Anesthesia Evaluation PreOp ---
Date of Encounter: 10/10/18 Time of Encounter: 08:14 - Past History Planned Operation: EGD/Colonoscopy Cardiac History: HTN, Hyperlipidemia, Cardiac Stent (10/08/2018 SRIKANTH x 1) Pulmonary History: Smoker (15 years), COPD, MARLEE Dx (uses CPAP) [employer] History: Other (chronic back pain with SC stimulator) Other Medical History: Renal (CKD), GERD Anesthesia History: No Prior Anesthetic Complications, Past Anesthesia Alcohol Use: rarely Drug use: none Medications and Allergies Magnesium Oxide [Magnesium] 400 mg PO QPM PRN 02/04/15 [History] Omeprazole [PriLOSEC] 20 mg PO QAM 02/04/15 [History] Pravastatin Sodium [Pravachol] 40 mg PO QPM 02/04/15 [History] Escitalopram [Lexapro] 10 mg PO QPM 01/03/18 [History] Metoprolol Succinate [Toprol Xl] 25 mg PO QAM 01/03/18 [History] Losartan/Hydrochlorothiazide [Losartan-Hctz 100-25 mg Tab] 1 tab PO QPM 05/08/18 [History] Aspirin [Lo-Dose Aspirin EC] 81 mg PO QAM 10/08/18 [History] Gabapentin 600 mg PO TID 10/08/18 [History] Loperamide [Imodium] 2 mg PO QID PRN 10/08/18 [History] Clopidogrel [Plavix] 75 mg PO DAILY #30 tablet 10/09/18 [Rx] Allergy/AdvReac Type Severity Reaction Status Date / Time Penicillins Allergy Mild Rash/HIVES/SCRATCHY Verified 10/08/18 20:41 THROAT pregabalin [From Lyrica] AdvReac Mild FORGETFULL/ Verified 10/08/18 20:41 LETHARGIC latex AdvReac Unknown RASH/BLISTE Verified 10/08/18 20:41 RS - Meds/Allergy Pre-op Review Medications Reviewed: Yes Allergies Reviewed: Yes Beta Blockers on Current Med List: Yes If Beta Blockers taken, Date/Time (Last Dose taken): 10/09/2018 at 1139 Anesthesia Results - Labs 10/10/18 06:15 10/09/18 04:17 - Imaging EKG: report reviewed (11/12/2016 SINUS RHYTHM BORDERLINE LEFT AXIS DEVIATION VOLTAGE CRITERIA FOR LVH NONSPECIFIC T-WAVE ABNORMALITY) Additional studies: 10/08/2018 LEFT HEART CATH IV Doppler BLD Flow 1st Vessel Stent w/ PTCA Single Major Vessel Indications: Unstable Angina, Abnormal Test - Stress Suspected CAD CAD (without ischemic Sx) Impressions: There is severe one vessel coronary artery disease. Patient had successful PTCA/Drug-Eluting Stent placement in the mid LAD. Recommendations: Optimal medical therapy of patient's disease. Aggressive risk factor modification. Patient being referred for cardiac rehab. 10/02/2018 Stress Impression: Mild inferolateral ischemia on perfusion study (reversible mid-basal inferolateral perfusion defect of small size and mild intensity, SDS = 3) . No infarct on perfusion study. Stress LVEF 60 %. Pharmacologic stress ECG non-diagnostic for ischemia. Ordering physician notified via eCW. 10/24/2017 Echo Impressions: Technically sub-optimal due to poor echocardiographic windows. LVEF 55%. Normal LV chamber size, wall thickness and function. Atypical septal motion consistent with bundle branch block. Normal right ventricular structure and function. Mild left ventricular diastolic dysfunction. No evidence of pulmonary hypertension. No significant valvular dysfunction. Anesthesia Exam Vital Signs/O2 Sat, Most Current Temp Pulse Resp BP Pulse Ox 97.7 F 74 16 137/71 96 10/10/18 07:07 10/10/18 07:07 10/10/18 07:07 10/10/18 07:07 10/10/18 07:07 Height: 5'2''/1.57m Weight: 227 lbs/103.3 kg NPO (# of Hours): 8 Pain Scale: 8 (back) Pain Scale Used: Numeric (1 - 10) - HEENT Pupil (Motor): EOMI Mallampati: III Teeth: Edentulous Denture Type: Upper: Complete, Lower: Complete Oral Opening: Greater than 3 - [employer]TER LOC: Oriented [employer] Motor: Normal RUE, Normal LUE, Normal RLE, Normal Face, Deficit LLE [employer]TER Sensory: Normal: RUE, LUE, RLE, Face, Deficit: LLE - Cardiac Rhythm: Regular Murmur: None - Pulmonary Breath Sounds: bilateral Clear Respiratory Effort: Symmetrical Anesthesia Assess/Plan ASA Score: 4 Level of consciousness: Cooperative, Oriented, Tranquil Anesthetic Plan: MAC Monitoring Plan: Standard Monitors
--- NOTE | 2018-10-10 08:26 | Cardiology Progress Note ---
Date of Encounter: 10/10/18 Time of Encounter: 08:25 Assessment and Plan (1) Coronary artery disease Current Visit: No Status: Chronic Per Cardiology: History of CAD. S/p PTCA/drug-eluting stent to mid LAD 60% lesion; nonobstructive proximal left main 25%, mid left main 25%, distal left main 25%; diagonal 1 50%; mid RCA 20% lesions. On aspirin, plavix, statin, beta claudio, ARB. CP free. Will await recs from GI regarding discharge. Qualifiers: Coronary Disease-Associated Artery/Lesion type: [place] artery [place] vs. transplanted heart: [place] heart Associated angina: without angina Qualified Code(s): I25.10 - Atherosclerotic heart disease of [place] coronary artery without angina pectoris (2) Acute blood loss anemia Current Visit: No Status: Acute Per Cardiology: Stool +. H&H stable. EGD and Cscope pending today with GI. Discussion w patient/family: The assessment and plan as outlined above was discussed with the patient and/or family members who expressed understanding and agreement. All questions were answered. Thank you for involving us in the care of your patient. Please call with any questions. Subjective Principal diagnosis: CAD, S/p Stent Interval history: Denies any chest pain, shortness of breath, palpitations. Denies any concerns from her right groin site. Reports had EGD and colonoscopy this morning. Denies any recurrent GI bleeding. Objective Vital Signs, Last 4 Hours Temp Pulse Resp BP Pulse Ox 10/10/18 08:14 97.7 F 70 16 154/66 97 10/10/18 07:07 97.7 F 74 16 137/71 96 General: Conversant, No Apparent Distress HEENT: Atraumatic, Normocephaly, Mucus Membranes Moist Neck: No JVD, Normal carotid pulses Cardiac: Reg Rate and Rhythm, Normal S1 and S2, No Murmur Lungs: Normal Breath Sounds, No Wheeze, Rales, Rhonchi Neuro: Alert and responsive, No focal deficits noted Abdomen: Soft, Non-Tender Skin: No rashes noted on visualized skin Musculoskeletal: No Chest Wall Tenderness Extremities: No Clubbing, No Cyanosis, No Edema, Normal Pulses Results 10/10/18 06:15 10/09/18 04:17 Lab Results Laboratory Tests 10/09/18 10/10/18 09:50 06:15 Hgb 10.8 L Hct 34.6 L Stool Occult Blood Positive A Active Medications Acetaminophen (Tylenol) 650 mg PO Q6HR PRN PRN Reason: Pain Stop: 04/09/19 17:17 Last Admin: 10/09/18 20:53 Dose: 650 mg Documented by: Aspirin (Aspirin) 81 mg PO DAILY [facility] Stop: 04/10/19 09:01 Last Admin: 10/09/18 09:30 Dose: 81 mg Documented by: Clopidogrel Bisulfate (Plavix) 75 mg PO DAILY [facility] Stop: 04/10/19 09:01 Last Admin: 10/09/18 09:30 Dose: 75 mg Documented by: Escitalopram Oxalate (Lexapro) 10 mg PO QPM [facility] Stop: 04/10/19 18:01 Last Admin: 10/09/18 17:02 Dose: 10 mg Documented by: Gabapentin (Neurontin) 600 mg PO TID [facility] Stop: 04/10/19 11:01 Last Admin: 10/09/18 20:41 Dose: 600 mg Documented by: HCTZ/Losartan Potassium (Hyzaar 50/12.5) 2 each PO QPM [facility] Stop: 04/10/19 18:01 Last Admin: 10/09/18 17:02 Dose: 2 each Documented by: Sodium Chloride (0.9 % Sodium Chloride) 1,000 mls @ 25 mls/hr IVC .Q24H [facility] Stop: 04/09/19 12:16 Last Admin: 10/09/18 11:38 Dose: 25 mls/hr Documented by: Loperamide HCl (Imodium) 2 mg PO QID PRN PRN Reason: LOOSE STOOLS Stop: 04/10/19 10:48 Magnesium Oxide (Mag-Ox) 400 mg PO QPM PRN PRN Reason: LOW MAGNESIUM Metoprolol [facility] ([facility]l) [facility] [place] Stop: 04/10/19 11:01 Last Admin: 10/09/18 11:39 Dose: 25 mg Documented by: Omeprazole [facility]ilosec) [facility] [place] Protocol Stop: 04/10/19 11:01 Last Admin: 10/09/18 11:39 Dose: 20 mg Documented by: Simvastatin (Zocor) 20 mg PO QPM [facility] Stop: 04/10/19 18:01 Last Admin: 10/09/18 17:02 Dose: 20 mg Documented by: - Imaging and Cardiology Cardiac cath: report reviewed - VTE Reasons for not Prescribing Prophylaxis: Medical contraindication Consult Discharge Plan - Plan Referrals: Andrew Chen MD [Primary Care Provider] -
[2018-10-10] MEDS: Metoprolol XL (24 HR) Succ 25 MG TAB.ER.24H PO SCH (09:19)
[2018-10-10] MEDS: Aspirin 81 MG TAB.CHEW PO SCH (09:19)
[2018-10-10] MEDS: Gabapentin 300 MG CAPSULE PO SCH ×3 (09:19→20:01)
--- NOTE | 2018-10-10 14:06 | Internal Med History&Physical ---
Date of Encounter: 10/10/18 Time of Encounter: 13:30 Internal Medicine - H&P: HPI Chief complaint: GI Bleed Admitted From: Emergency Dept Plans for Post Hospital Care: Home History of present illness: Ms. Hernandez is a 58 year old female with a known past medical history of hypertension, hyperlipidemia, GERD, depression, anxiety, chronic diarrhea who recently had abnormal stress test on 10/03/18, she had schedule LHC on 10/08/18 showed mid LAD 60% lesion; nonobstructive proximal left main 25%, mid left main 25%, distal left main 25%; diagonal 1 50%; mid RCA 20% lesions had PCI to mid LAD and pt was admitted in the hospital and started her on ASA + Plavix. Apparently y/d pt did have bright red blood per rectum and dark colored stool x 1 episode. Pt was evaluated by GI who did EGD / Colonoscopy today. Her EGD show ed normal esophagus and gastritis . 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 So hospitalist team was asked by cardiology to admit the patient under our service for further care. Patient was seen and examined at bedside. She denied anymore chest pain. She did complaining about chronic [place] umbelical pain. She also mentioned chronic diarrhea, but denied any previous history of G.I. bleed/melena/bright red blood per rectum. However she did mention she had history of colon polyps in the past for which she had to go to [facility] for polypectomy in 2009. Patient also mentioned significant family history of colon cancer in her maternal side of the family. She denied any nausea/vomiting now. Past Med Surg Social Fam HX - Past Medical History Medical history: asthma, COPD, hyperlipidemia, hypertension, kidney stones Additional medical history: Ulcers Psychiatric history: depression, PTSD - Past Surgical History Surgical History: cholecystectomy, other Additional surgical history: [facility] - spinal stimulator - Social History Smoking Status: Current every day smoker Packs per day: < 1 pack Smokeless Tobacco Status: No Alcohol use: rarely Drug use: none - Family History Mother Living Status: Hx Family Endocrine Disorder: Yes (DM) Father Living Status: Hx Family Cardiac Disorders: Yes (Angina) Hx Family Cancer: Yes ([place]) Internal Medicine - H&P: Meds Magnesium Oxide [Magnesium] 400 mg PO QPM PRN 02/04/15 [History] Omeprazole [PriLOSEC] 20 mg PO QAM 02/04/15 [History] Pravastatin Sodium [Pravachol] 40 mg PO QPM 02/04/15 [History] Escitalopram [Lexapro] 10 mg PO QPM 01/03/18 [History] Metoprolol Succinate [Toprol Xl] 25 mg PO QAM 01/03/18 [History] Losartan/Hydrochlorothiazide [Losartan-Hctz 100-25 mg Tab] 1 tab PO QPM 05/08/18 [History] Aspirin [Lo-Dose Aspirin EC] 81 mg PO QAM 10/08/18 [History] Gabapentin 600 mg PO TID 10/08/18 [History] Loperamide [Imodium] 2 mg PO QID PRN 10/08/18 [History] Clopidogrel [Plavix] 75 mg PO DAILY #30 tablet 10/09/18 [Rx] Allergy/AdvReac Type Severity Reaction Status Date / Time Penicillins Allergy Mild Rash/HIVES/SCRATCHY Verified 10/08/18 20:41 THROAT pregabalin [From Lyrica] AdvReac Mild FORGETFULL/ Verified 10/08/18 20:41 LETHARGIC latex AdvReac Unknown RASH/BLISTE Verified 10/08/18 20:41 RS All Systems PM: A 10-system review of systems was performed and is negative for pertinent findings except as documented above in the HPI. Review of systems: All the systems are reviewed everything is benign except the systems and symptoms I mentioned in the history of present illness - Constitutional Vitals: Temp Pulse Resp BP Pulse Ox 97.9 F 74 16 142/76 93 10/10/18 09:22 10/10/18 11:21 10/10/18 11:21 10/10/18 11:21 10/10/18 11:21 General appearance: Present: cooperative, A&O X 3, no acute distress, answers questions appropriately Exam: a - Head Head exam: Present: atraumatic, normal inspection - Neck Neck exam general surgery: Present: supple - Respiratory Respiratory exam: Present: decreased breath sounds. Absent: rales, respiratory distress, rhonchi, wheezes - Cardiovascular Cardiovascular exam: Present: RRR, +S1, +S2. Absent: tachycardia - GI/Abdominal GI/Abdominal exam: Present: normal bowel sounds, soft, no peritoneal signs. Absent: rebound, rigid, tenderness - Extremities Exam Extremities exam: Absent: calf tenderness, joint swelling, pedal edema, tenderness - Back Exam Back exam: Absent: CVA tenderness (L), CVA tenderness (R) - Neurological Exam Neurological exam: Present: alert, oriented X3 - Psychiatric Psychiatric exam: Present: normal affect, normal mood - Skin Skin exam: Absent: rash Internal Med - H&P Results - Labs CBC & Chem 7: 10/10/18 06:15 10/09/18 04:17 Labs: Short CBC 10/10/18 Range/Units 06:15 Hgb 10.8 L (11.5-15.4) g/dL Hct 34.6 L (35.3-44.9) % - Assessment and Plan (1) GI bleeding Current Visit: Yes Status: Acute Assessment and plan: Due to colon mass + Internal hemorrhoids hemoglobin stable @ 9.9 cont close monitoring s/p EGD- showed gastritis s/p Colonoscopy showed malignant transverse colon mass Card is recommend to stop ASA and Cont Plavix for her CAD s/p PCI Qualifiers: GI bleed type/associated pathology: anorectal hemorrhage Qualified Code(s): K62.5 - Hemorrhage of anus and rectum (2) Colonic mass Current Visit: Yes Status: Acute Assessment and plan: No signs of obstruction concerning for malignancy Talked to GI.. Recommend further work up as per Heme Onc recommendations so consulted Heme Onc (3) Coronary artery disease Current Visit: No Status: Chronic Assessment and plan: Recent abnormal stress test Now had LHC 2 days ago had PCI placed to mid LAD need to be on DAPT, however due to GI bleed Card is ok to stop ASA and continue Plavix for now cont Statin, BB and ARB Qualifiers: Coronary Disease-Associated Artery/Lesion type: [place] artery [place] vs. transplanted heart: [place] heart Associated angina: without angina Qualified Code(s): I25.10 - Atherosclerotic heart disease of [place] coronary artery without angina pectoris (4) Acute blood loss anemia Current Visit: No Status: Acute Assessment and plan: Hb dropped down to 9.9 from 11.7 stable Hb .. today @ 10.9 cont close monitoring check Iron studies may need iron supplements (5) COPD (chronic obstructive pulmonary disease) Current Visit: No Status: Chronic Assessment and plan: Not in exacerbation resumed home inhalers Qualifiers: COPD type: unspecified COPD Qualified Code(s): J44.9 - Chronic obstructive pulmonary disease, unspecified (6) Hyperlipidemia Current Visit: No Status: Chronic Qualifiers: Hyperlipidemia type: unspecified Qualified Code(s): E78.5 - Hyperlipidemia, unspecified (7) Hypertension Current Visit: No Status: Chronic Qualifiers: Hypertension type: unspecified Qualified Code(s): I10 - Essential (primary) hypertension (8) Morbid obesity with BMI of 40.0-44.9, adult Current Visit: No Status: Chronic - Time Spent With Patient Total time spent is greater than 50% in coordination of care (as documented) at patient's floor/unit and/or counseling patient: - VTE Reasons for not Prescribing Prophylaxis: Medical contraindication
[2018-10-10 14:19] LABS: Hematocrit 35.1 % (35.3-44.9); Hemoglobin 10.9 g/dL (11.5-15.4)
[2018-10-10 15:19] LABS: % Iron Saturation 14 % (15-50); BUN/Creatinine Ratio 10 (6-26); Blood Urea Nitrogen 8 mg/dL (8-23); Calcium 8.9 mg/dL (8.6-10.3); Carbon Dioxide 27 mEq/L (23-29); Chloride 101 mEq/L (98-107); Glucose 167 mg/dL (70-105); Iron 46 mcg/dL (50-170); Osmolality,Calculated 288 (280-300); Potassium 3.6 mEq/L (3.5-5.1); Sodium 138 mEq/L (136-145); Transferrin 234 mg/dL (203-362); eGFR For Non-African Americans > 60 (> 60)
--- NOTE | 2018-10-10 16:11 | Gastroenterology Consult Note ---
Date of Encounter: 10/10/18 Time of Encounter: 09:40 - Assessment and plan (1) Colonic mass Current Visit: Yes Status: Acute Assessment and plan: Colonoscopy with ulcerated partially obstructing large mass in the mid transverse colon, nonbleeding internal hemorrhoids. Check CEA. Consult Heme/Onc. (2) Acute blood loss anemia Current Visit: No Status: Acute Assessment and plan: Hgb 11.7 on 10/06/2018, Hgb 9.9 on admission and 10.8 this AM. Continue to monitor CBC and transfuse PRBC as needed. EGD and colonoscopy completed today. (3) GI bleeding Current Visit: Yes Status: Acute Assessment and plan: Colonoscopy with ulcerated partially obstructing large mass in the mid transverse colon, nonbleeding internal hemorrhoids. EGD with gastritis. Likely secondary to colonic mass. Pathology pending from biopsy. Continue to monitor CBC and transfuse PRBC if needed. Qualifiers: GI bleed type/associated pathology: anorectal hemorrhage Qualified Code(s): K62.5 - Hemorrhage of anus and rectum - Time Spent With Patient Total time spent is greater than 50% in coordination of care (as documented) at patient's floor/unit and/or counseling patient: GI History of Present Illness - Data of Consult Patient: new to practice Consult date: 10/10/18 Requesting Physician: Shruthi Padilla MD - Consult Narrative Reason for consult: Anemia, GI bleed History of present illness: Ms. Hernandez is a 58 year old female with PMHx of asthma, CAD, COPD, HLD, HTN, who underwent LHC on 10/08/18 with drug-eluting stent to mid LAD with 60% lesion. Prior to discharge following LHC, patient developped BRBPR and dark tarry stools x 2. Patient was started on Plavix following stenting. We were asked to evaluate the rectal bleeding. Patient reports having intermittent diarrhea since having her gallbladder removed. She also reports mild RUQ tenderness. Procedures: Colonoscopy 06/16/2014 Dr. Gar: Three tubular adenoma ranging 3-5 mm, one hyperplastic polyp, internal hemorrhoids. NSAIDs: ASA Anticoagulation: Plavix Past Med Surg Social Fam HX - Past Medical History Medical history: asthma, COPD, hyperlipidemia, hypertension, kidney stones Additional medical history: Ulcers Psychiatric history: depression, PTSD - Past Surgical History Surgical History: cholecystectomy, other Additional surgical history: [email or web address] - spinal stimulator - Social History Smoking Status: Current every day smoker Packs per day: < 1 pack Smokeless Tobacco Status: No Alcohol use: rarely Drug use: none - Family History Mother Living Status: Hx Family Endocrine Disorder: Yes (DM) Father Living Status: Hx Family Cardiac Disorders: Yes (Angina) Hx Family Cancer: Yes ([place]) - Gastrointestinal Gastrointestinal: Present: as per HPI - Constitutional Constitutional: as per HPI - EENT Eyes: as per HPI Ears: Present: as per HPI Nose, mouth and throat: Present: as per HPI - Cardiovascular Cardiovascular ROS: Present: as per HPI - Respiratory Respiratory IM: Present: as per HPI - Genitourinary Genitourinary: Absent: change in color, Urinary frequency - Neurological ROS Neurological GI: Present: as per HPI - Hematologic/Lymphatic Hematologic/Lymphatic pediatric: Present: as per HPI - Musculoskeletal Musculoskeletal ROS GI: Present: as per HPI - Integumentary Integumentary GI: Present: as per HPI - Psychiatric ROS Psychiatric GI: Present: as per HPI - Endocrine Endocrine IM: Present: as per HPI - Constitutional Vitals: Temp Pulse Resp BP Pulse Ox 98.3 F 75 16 128/69 96 10/10/18 15:04 10/10/18 15:04 10/10/18 15:04 10/10/18 15:04 10/10/18 15:04 General appearance: Present: cooperative, A&O X 3, no acute distress, answers questions appropriately - Head Head exam: Present: atraumatic, normocephalic - Eye Eye exam: Present: normal appearance, sclera anicteric - ENT ENT exam: Present: mucous membranes dry - Neck Neck exam general surgery: Present: normal inspection, trachea midline - Respiratory Respiratory exam: Present: CTAB. Absent: rales, rhonchi - Cardiovascular Cardiovascular exam: Present: RRR, +S1, +S2 - GI/Abdominal GI/Abdominal exam: Present: soft, no peritoneal signs. Absent: distended, firm, guarding, tenderness - Rectal Rectal exam: Present: deferred - Extremities Exam Extremities exam: Present: warm - Neurological Exam Neurological exam: Present: no focal deficits - Psychiatric Psychiatric exam: Present: normal affect, normal mood - Skin Skin exam: Present: dry, intact, normal color, warm Results - Labs CBC & Chem 7: 10/10/18 14:00 10/10/18 13:40 Labs: Last Result 10/10/18 13:40 Calcium 8.9 Iron 46 L % Saturation 14 L Transferrin 234 Entire Visit 10/10/18 10/10/18 10/10/18 06:15 13:40 14:00 Hgb 10.8 L 10.9 L Hct 34.6 L 35.1 L Carcinoembryonic Ag 2.5 Consult Discharge Plan - Plan Referrals: Andrew Chen MD [Primary Care Provider] -
--- NOTE | 2018-10-10 16:13 | Oncology Inp Consult Note ---
<Yvrose Zavaleta L - Last Filed: 10/10/18 16:36> Date of Encounter: 10/10/18 Time of Encounter: 15:30 Assessment and Plan (1) Acute blood loss anemia Status: Acute Assessment and plan: Secondary to colon mass Plan: Venofer 400 mg x1 Continue Plavix, stop ASA per cardiology recs Monitor H&H closely Check B12/folate (2) Colonic mass Status: Acute Assessment and plan: Colonoscopy 10/10/2018 reveals ulcerated, partially obstructing large mass in the mid transverse colon, no bleeidng present, biopsied with pathology pending, non bleeding internal hemorrhoids grade II EGD- normal esophagus, gastritis CEA 2.5 BRAULIO noted Plan: Consult surgery for establishment of plan for surgical intervention in about one months time when plavix may be interrupted CT chest/abdomen/pelvis with IV and oral contrast Arrange for follow up with Dr. Kirk as outpatient in about 2 weeks time Further treatment recommendations to be made on an outpatient basis following surgical pathology (3) Coronary artery disease Status: Chronic Assessment and plan: Recent abnormal stress test, s/p LHC 10/08/17 with DUS placed to mid LAD Developed GIB on DAPT, per cardiology rec to stop ASA and continue Plavix uninterrupted x1 month Cardiology following, appreciate recs Qualifiers: Coronary Disease-Associated Artery/Lesion type: [place] artery [place] vs. transplanted heart: [place] heart Associated angina: without angina Qualified Code(s): I25.10 - Atherosclerotic heart disease of [place] coronary artery without angina pectoris - Data of Consult Patient: new to practice Consult date: 10/10/18 Requesting Physician: Shruthi Padilla MD Primary Care Provider: Andrew Chen MD - Consult Narrative Reason for consult: Transverse colon mass History of present illness: Ms. Hernandez is a 58 year old female with past medical history significant for hypertension, hyperlipidemia, GERD, depression, anxiety. She had an abnormal stress test on 10/03/18 and is s/p LHC on 10/08/18 PTCA/drug-eluting stent to mid LAD 60% lesion. She was admitted to the hospital following procedure and started on DAPT with ASA/Plavix when she developed BRBPR. GI was consulted and she underwent EGD/Colonoscopy which revealed an ulcerated, partially obstructing mass in the mid transverse colon. Patient states she has a known history of BRAULIO. She endorses "chronic diarrhea" for the past year but denies hematochezia or melena. Denies appetite changes or unintended weight loss. Resides in [place]. Last colonoscopy was reported to be about 4-5 years ago, states she has strong family history of colon cancer. Current every day smoker <1 PPD. Past Med Surg Social Fam HX - Past Medical History Medical history: asthma, COPD, hyperlipidemia, hypertension, kidney stones Additional medical history: Ulcers Psychiatric history: depression, PTSD - Past Surgical History Surgical History: cholecystectomy, other Additional surgical history: [email or web address] - spinal stimulator - Social History Smoking Status: Current every day smoker Packs per day: < 1 pack Smokeless Tobacco Status: No Alcohol use: rarely Drug use: none - Family History Mother Living Status: Hx Family Endocrine Disorder: Yes (DM) Father Living Status: Hx Family Cardiac Disorders: Yes (Angina) Hx Family Cancer: Yes ([place]) Medications and Allergies Magnesium Oxide [Magnesium] 400 mg PO QPM PRN 02/04/15 [History] Omeprazole [PriLOSEC] 20 mg PO QAM 02/04/15 [History] Pravastatin Sodium [Pravachol] 40 mg PO QPM 02/04/15 [History] Escitalopram [Lexapro] 10 mg PO QPM 01/03/18 [History] Metoprolol Succinate [Toprol Xl] 25 mg PO QAM 01/03/18 [History] Losartan/Hydrochlorothiazide [Losartan-Hctz 100-25 mg Tab] 1 tab PO QPM 05/08/18 [History] Aspirin [Lo-Dose Aspirin EC] 81 mg PO QAM 10/08/18 [History] Gabapentin 600 mg PO TID 10/08/18 [History] Loperamide [Imodium] 2 mg PO QID PRN 10/08/18 [History] Clopidogrel [Plavix] 75 mg PO DAILY #30 tablet 10/09/18 [Rx] Allergy/AdvReac Type Severity Reaction Status Date / Time Penicillins Allergy Mild Rash/HIVES/SCRATCHY Verified 10/08/18 20:41 THROAT pregabalin [From Lyrica] AdvReac Mild FORGETFULL/ Verified 10/08/18 20:41 LETHARGIC latex AdvReac Unknown RASH/BLISTE Verified 10/08/18 20:41 RS Constitutional: Absent: anorexia, chills, fatigue, fever(s), headache(s), weakness, weight loss Eyes: Absent: change in vision Nose, mouth and throat: Absent: dysphagia, odynophagia Cardiovascular: Present: as per HPI. Absent: chest pain Gastrointestinal: Present: as per HPI, diarrhea. Absent: abdominal pain, change in bowel habits, hematochezia, melena, nausea, vomiting Genitourinary: Absent: dysuria Musculoskeletal: Absent: back pain, muscle weakness Integumentary: Absent: rash, wounds Neurological: Absent: dizziness, focal weakness Psychiatric: Present: as per HPI Endocrine: Present: as per HPI Hematologic/Lymphatic: Present: as per HPI Oncology - Exam - Constitutional General appearance: cooperative, no acute distress, no febrile - Head Head exam: Present: atraumatic - ENT ENT exam: Present: mucous membranes moist, normal oropharynx - Respiratory Respiratory exam: Present: decreased breath sounds. Absent: respiratory distress - Cardiovascular Cardiovascular exam: Present: RRR - GI/Abdominal GI/Abdominal exam: Present: normal bowel sounds, soft. Absent: tenderness - Extremities Exam Extremities exam: Present: normal inspection. Absent: calf tenderness - Neurological Exam Neurological exam: Present: alert, oriented X3, no focal deficits, strengths equal and symetr throughout - Psychiatric Psychiatric exam: Present: normal affect, normal mood - Skin Skin exam: Present: dry, intact, normal color, warm Consult Discharge Plan - Plan Referrals: Andrew Chen MD [Primary Care Provider] - Inpatient Charges Provider: Dr. Abner Kirk <Daniel Kirk - Last Filed: 10/10/18 21:40> Date of Encounter: 10/10/18 - Data of Consult Requesting Physician: Shruthi Padilla MD Primary Care Provider: Andrew Chen MD - Attending Attestation I have seen and examined Ms. Hernandez and agrees with the plan that in place by Waqar. Ms. Hernandez is a very pleasant 58-year-old woman who had a recent PTCI to the LAD and was placed on aspirin and Plavix. She has also noted abdominal pain in the mid/right mid abdomen at times and has had persistent diarrhea for at least 6 months. She denies any melena or hematochezia. She presented with acute gastrointestinal blood loss. She has been found to havea bleeding transverse colon mass concerning for malignancy. Pathology is currently pending. On exam, she is obese. Heart RRR without murmur gallop rub. I have recommended CT the chest, abdomen and pelvis with IV contrast to complete staging. Baseline CEA has been obtained. I recommend surgical consultation for hemicolectomy. We will likely have to delay surgery for 4-6 week secondary to recent PTCI and antiplatelet therapy to decrease risk of in-stent thrombosis. We will administer vendor for 400 mg IV to aid in management of her anemia. I would also recommend discharged on folivane or integra plus. Established outpatient follow-up with me in 2-3 weeks for follow-up anemia. We will also follow up on CT scan results once available. We will otherwise sign off. Inpatient Charges Provider: Dr. Abner Kirk Consult - Inpatient: [id number]
[2018-10-10] MEDS ORDERED: Isovue-370 500 ML BOTTLE IVP ONE ×2 (16:24)
[2018-10-10] MEDS: Losartan/HCTZ 50-12.5 TABLET PO SCH (16:47)
[2018-10-10] MEDS ORDERED: Iron Sucrose Complex 400 MG in 0.9 % Sodium Chloride 250 ML IVPB ONE (18:00)
--- NOTE | 2018-10-10 18:45 | AcuteCare Surgery Consult Note ---
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 Even if the pathology is benign, the mass bled with initiation of antiplatelet therapy and should be surgically resected. Laparotomy with colon resection all the patient is on Plavix and aspirin for a fresh drug-eluting stent carries a increased risk of intra-abdominal bleeding during the postoperative period. However, if the patient has persistent bleeding or anemia requiring transfusion, laparotomy and transverse colectomy will be indicated even though the patient has a fresh drug-eluting stent and is on aspirin and Plavix. He would be optimal for the patient to get a 12 months of Plavix therapy prior to any elective procedure, however, the presence of a bleeding malignancy impacts this decision process. Statistically, there is a drop in the stent thrombosis rated at 6 weeks and I believe this should be our target for surgical resection. Certainly, she will be observed for rebleeding during this admission. If she does have rebleeding open laparotomy and transverse colectomy would be indicated. Enoc Bardales MD [facility] History of Present Illness Consult date: 10/10/18 Reason for consult: other (Rectal bleeding) History of present illness: The patient underwent cardiac catheterization with drug-eluting stent in the LAD several days ago. The day after she started on Plavix she developed rectal bleeding. She was admitted to the hospital and had gastroenterology consultation and subsequent colonoscopy and EGD. The EGD was essentially neg ative. Colonoscopy demonstrated a proximal transverse colon ulcerated tumor that was not actively bleeding. This is nonobstructing. They were able to pass the colonoscope to the level of the ileocecal valve. CEA level is 2.5. The patient complains of mild right upper quadrant pain. She does have chronic diarrhea. Her last colonoscopy was in 2011 and reported as negative. She now presents for evaluation of transverse colon mass with [place] drug-eluting stent Past Med Surg Social Fam HX - Past Medical History Medical history: asthma, COPD, hyperlipidemia, hypertension, kidney stones Additional medical history: Ulcers Psychiatric history: depression, PTSD - Past Surgical History Surgical History: cholecystectomy, other Additional surgical history: [facility] - spinal stimulator - Social History Smoking Status: Current every day smoker Packs per day: < 1 pack Smokeless Tobacco Status: No Alcohol use: rarely Drug use: none - Family History Mother Living Status: Hx Family Endocrine Disorder: Yes (DM) Father Living Status: Hx Family Cardiac Disorders: Yes (Angina) Hx Family Cancer: Yes ([place]) Medications and Allergies Magnesium Oxide [Magnesium] 400 mg PO QPM PRN 02/04/15 [History] Omeprazole [PriLOSEC] 20 mg PO QAM 02/04/15 [History] Pravastatin Sodium [Pravachol] 40 mg PO QPM 02/04/15 [History] Escitalopram [Lexapro] 10 mg PO QPM 01/03/18 [History] Metoprolol Succinate [Toprol Xl] 25 mg PO QAM 01/03/18 [History] Losartan/Hydrochlorothiazide [Losartan-Hctz 100-25 mg Tab] 1 tab PO QPM 05/08/18 [History] Aspirin [Lo-Dose Aspirin EC] 81 mg PO QAM 10/08/18 [History] Gabapentin 600 mg PO TID 10/08/18 [History] Loperamide [Imodium] 2 mg PO QID PRN 10/08/18 [History] Clopidogrel [Plavix] 75 mg PO DAILY #30 tablet 10/09/18 [Rx] Allergy/AdvReac Type Severity Reaction Status Date / Time Penicillins Allergy Mild Rash/HIVES/SCRATCHY Verified 10/08/18 20:41 THROAT pregabalin [From Lyrica] AdvReac Mild FORGETFULL/ Verified 10/08/18 20:41 LETHARGIC latex AdvReac Unknown RASH/BLISTE Verified 10/08/18 20:41 RS Review of Systems All systems PM: The remainder of the systems were reviewed and are negative General Surgery Exam Initial Vital Signs Temp Pulse Resp BP Pulse Ox 98.4 F 79 16 113/65 96 10/08/18 11:43 10/08/18 11:43 10/08/18 11:43 10/08/18 11:43 10/08/18 11:43 - General physical appearance well developed, well nourished, no distress, obese - Neck no masses, no bruits, trachea midline, no lymphadectomy, no venous distension - Respiratory normal expansion, normal respiratory effort wheezing: bilateral - Cardiovascular Cardiovascular exam: Present: RRR, distant heart sounds - Abdomen Abdomen general surgery: Present: bowel sounds present, soft, non tender - Integumentary Integumentary general surgery: Present: warm and dry, no abnormal pigmentation - Neurologic Present: CN 2-12 grossly intact, normal coordination, normal sensation - Psychiatric Psychiatric general surgery: Present: appropriate, oriented to person, oriented to place, oriented to time, speech is normal, memory intact Exam Initial Vital Signs Temp Pulse Resp BP Pulse Ox 98.4 F 79 16 113/65 96 10/08/18 11:43 10/08/18 11:43 10/08/18 11:43 10/08/18 11:43 10/08/18 11:43 Results - Labs 10/10/18 14:00 10/10/18 13:40 Abnormal lab results Hgb 10.9 g/dL (11.5-15.4) L 10/10/18 14:00 Hct 35.1 % (35.3-44.9) L 10/10/18 14:00 Glucose 167 mg/dL (70-105) H 10/10/18 13:40 Iron 46 mcg/dL (50-170) L 10/10/18 13:40 % Saturation 14 % (15-50) L 10/10/18 13:40 Positive (Negative) A 10/09/18 09:50 Diabetes panel 10/10/18 Range/Units 13:40 Sodium 138 (136-145) mEq/L Potassium 3.6 (3.5-5.1) mEq/L Chloride 101 (98-107) mEq/L Carbon Dioxide 27 (23-29) mEq/L BUN 8 (8-23) mg/dL Creatinine 0.77 (0.60-1.20) mg/dL Glucose 167 H (70-105) mg/dL Calcium 8.9 (8.6-10.3) mg/dL Calcium panel 10/10/18 Range/Units 13:40 Calcium 8.9 (8.6-10.3) mg/dL Pituitary panel 10/10/18 Range/Units 13:40 Sodium 138 (136-145) mEq/L Potassium 3.6 (3.5-5.1) mEq/L Chloride 101 (98-107) mEq/L Carbon Dioxide 27 (23-29) mEq/L BUN 8 (8-23) mg/dL Creatinine 0.77 (0.60-1.20) mg/dL Glucose 167 H (70-105) mg/dL Calcium 8.9 (8.6-10.3) mg/dL Adrenal panel 10/10/18 Range/Units 13:40 Sodium 138 (136-145) mEq/L Potassium 3.6 (3.5-5.1) mEq/L Chloride 101 (98-107) mEq/L Carbon Dioxide 27 (23-29) mEq/L BUN 8 (8-23) mg/dL Creatinine 0.77 (0.60-1.20) mg/dL Glucose 167 H (70-105) mg/dL Calcium 8.9 (8.6-10.3) mg/dL All other labs normal. Consult Discharge Plan - Plan Referrals: Andrew Chen MD [Primary Care Provider] -
[2018-10-11 01:47] LABS: Hematocrit 32.1 % (35.3-44.9); Hemoglobin 10.2 g/dL (11.5-15.4)
[2018-10-11] MEDS: Metoprolol XL (24 HR) Succ 25 MG TAB.ER.24H PO SCH (08:32)
[2018-10-11] MEDS: Gabapentin 300 MG CAPSULE PO SCH ×2 (08:32→13:18)
[2018-10-11] MEDS: Acetaminophen 325 MG TABLET PO PRN ×2 (08:33→11:23)
--- NOTE | 2018-10-11 09:26 | Oncology Inp Progress Note ---
Date of Encounter: 10/11/18 Time of Encounter: 10:00 (1) Acute blood loss anemia Current Visit: No Status: Acute Assessment and plan: She has had a nice response to transfusion and iron. Please discharged on oral iron supplementation. My preference is folivane or integra plus but ferrous sulfate is reasonable. (2) Colonic mass Current Visit: Yes Status: Acute Assessment and plan: Malignant appearing lesion in the transverse colon. CT imaging also revealed the same lesion. There is inflammatory changes about this lesion. No evidence of metastatic disease. She will undergo resection and approximate 6 weeks under care of Dr. Bardales. I recommend she start Citrucel one glass full twice a day to help with her regular bowel habits. It may be also worthwhile to discharge her on tramadol to help with pain control as well. I will arrange outpatient follow-up in 2-3 weeks to reevaluate her anemia as well as insure follow-up of her colon mass as well. We will otherwise sign off. She may be discharged from our perspective. Oncology: Subj Interval history: Ms. Hernandez is doing okay. Still complains of epigastric and right upper quadrant discomfort. This is a gnawing, nagging pain. Still with loose stool. No fever, chill or symptom of infection. She tolerated her IV iron well. She was know when she can be discharged. She is eating well. She came bleeding about the room. She is on no staining gross bleeding from her bowel. - Constitutional General appearance: cooperative, no acute distress, obese - Head Head exam: Present: atraumatic, normal inspection, normocephalic - Eye Eye exam: Present: normal appearance, conjuntiva pink, sclera anicteric - ENT ENT exam: Present: mucous membranes moist, normal external ear exam - Neck Neck exam: Present: full ROM, normal inspection - Respiratory Respiratory exam: Present: CTAB - Cardiovascular Cardiovascular exam: Present: RRR - GI/Abdominal GI/Abdominal exam: Present: normal bowel sounds, soft, tenderness - Extremities Exam Extremities exam: Present: normal inspection - Neurological Exam Neurological exam: Present: alert, CN II-XII intact, no focal deficits Oncology: Obj Data - Labs CBC & Chem 7: 10/11/18 00:52 10/10/18 13:40 - Imaging and cardiology CT scan - abdomen Status: image reviewed by me Additional comments: CT OF THE ABDOMEN AND PELVIS WITH CONTRAST; CT OF THE CHEST WITH CONTRAST 10/10/2018 4:39 pm; 10/10/2018 4:40 pm Chest: Mediastinum: Thoracic aorta and visualized pulmonary arteries unremarkable. Esophagus unremarkable. No mediastinal or hilar lymphadenopathy. No axillary lymphadenopathy. Thyroid unremarkable. Lungs/pleura: 4 mm noncalcified nodule identified within the right upper lobe (image 55). No other lung nodules detected. Atelectasis in the lingula is noted. Soft Tissues/Bones: No suspicious osteolytic or osteoblastic bone lesions. No acute bony abnormalities. Abdomen/Pelvis: Organs: No hepatic lesions are seen. Gallbladder surgically absent. Portal vein patent. Spleen enhances normally. Indeterminate nodule in the right adrenal gland measures 1.1 cm. Just superior to that, there is a fatty lesion measuring 6 mm, compatible with a benign myelolipoma. Left adrenal gland is mildly thickened but otherwise unremarkable. No pancreatic abnormalities are identified. GI/Bowel: There is focal circumferential mural thickening involving the proximal transverse colon, compatible with the patient's known colon mass, measuring roughly 4.4 cm in length. There is surrounding fat stranding along with borderline enlarged local lymph nodes measuring up to 9 mm. Large bowel is otherwise unremarkable. Appendix not well visualized but no asymmetric pericecal inflammation. Stomach, duodenal sweep, and the remainder of the small bowel are unremarkable. Pelvis: Uterus is surgically absent. No free pelvic fluid. Urinary bladder unremarkable. Peritoneum/Retroperitoneum: Abdominal aorta normal in caliber. Mild to moderate vascular calcification. Superior mesenteric artery is enhancing. No upper abdominal or retroperitoneal lymphadenopathy is identified. No iliac chain lymphadenopathy. Bones/Soft Tissues: There is mild fat stranding seen within the rightward aspect of the mons pubis near the inguinal region. There is a borderline enlarged right inguinal lymph node. Extra-abdominal and extra pelvic soft tissues otherwise unremarkable. No suspicious osteolytic or osteoblastic bone lesions are seen. CT/CT chest w con IMPRESSION: Colonic mass seen within the proximal transverse colon compatible with the patient's known history. There are a few small borderline enlarged lymph nodes in that region concerning for localized disease. That said, no convincing evidence of distant metastatic disease is found. There is an indeterminate nodule in the right adrenal gland, and attention to that on subsequent exams is recommended. Likewise, there is a small 4 mm nodule within the right upper lobe, which may represent minimal nodular scarring, but again attention to that on subsequent exams is recommended. Fat stranding the right inguinal region and rightward aspect of the mons pubis, with mildly enlarged right inguinal lymph node. Correlate with any clinical evidence of cellulitis. They could also be the sequela of vascular line placement. Consult Discharge Plan - Plan Referrals: Andrew Chen MD [Primary Care Provider] - Inpatient Charges Provider: Dr. Abner Kirk Follow up - Inpatient: [id number]
[2018-10-11 11:25] VITALS: BP 127/75
--- NOTE | 2018-10-11 11:49 | Discharge Summary ---
- NOTES TO OUTPATIENT PROVIDER Notes to Outpatient Provider: had abnormal stress test on 10/03/18, she had schedule LHC on 10/08/18 had PCI to mid LAD and pt was admitted in the hospital and started her on ASA + Plavix. Bleeding from her rectum underwent colonoscopy which showed malignant partially obstructing tumor nonbleeding was seen by oncology recommending continuing just Plavix as well as iron and will follow-up as outpatient. Was seen by surgery recommending follow-up -possible surgical intervention in 6 weeks- Orders not resulted at time of discharge: Pending orders 10/08/18 16:18 ECG 12 lead ECG [ECG] Stat 10/09/18 06:00 ECG 12 lead ECG [ECG] AM 0600 10/10/18 09:01 Surgical Pathology [PTH] Routine Date of Encounter: 10/11/18 Time of Encounter: 11:49 - Discharge Diagnosis (1) Hypertension Priority: Primary Status: Chronic Qualifiers: Hypertension type: unspecified Qualified Code(s): I10 - Essential (primary) hypertension (2) Hyperlipidemia Priority: Secondary Status: Chronic Qualifiers: Hyperlipidemia type: unspecified Qualified Code(s): E78.5 - Hyperlipidemia, unspecified (3) Coronary artery disease Priority: Secondary Status: Chronic Qualifiers: Coronary Disease-Associated Artery/Lesion type: [place] artery [place] vs. transplanted heart: [place] heart Associated angina: without angina Qualified Code(s): I25.10 - Atherosclerotic heart disease of [place] coronary artery without angina pectoris (4) COPD (chronic obstructive pulmonary disease) Priority: Secondary Status: Chronic Qualifiers: COPD type: unspecified COPD Qualified Code(s): J44.9 - Chronic obstructive pulmonary disease, unspecified (5) Morbid obesity with BMI of 40.0-44.9, adult Priority: Secondary Status: Chronic (6) Acute blood loss anemia Priority: Secondary Status: Acute (7) Colonic mass Priority: Primary Status: Acute (8) GI bleeding Priority: Secondary Status: Acute Qualifiers: GI bleed type/associated pathology: anorectal hemorrhage Qualified Code(s): K62.5 - Hemorrhage of anus and rectum Hospital course: Ms. Hernandez is a 58 year old female past medical history of hypertension hyperlipidemia GERD depression and anxiety. Patient had abnormal stress test on 10/03/18 and underwent LHC on 5/22/19 PTCA drug-eluting stent to mid LAD 60% lesion. Admitted to the hospital following procedures started on DAPT aspirin/Plavix she developed BRBPR. GI was consulted and underwent EGD/colonoscopy which revealed 8 ulcerated partially obstructing mass in the mid transverse colon. Patient does admit to chronic diarrhea for the past year but denies any hematochezia or melena. No appetite changes or unintentional weight loss. Due to bleeding cardiology did recommend holding aspirin 1 month and co ntinue with Plavix and monitor for bleeding. Patient was seen by surgery and will have follow-up in 4-6 weeks secondary to recent PTCI and antiplatelet therapy to decrease risk of in-stent thromboses. Patient was seen by oncology and she was given Venofer 400 mg to assist with anemia. She will be discharged with iron supplements as well as Citrucel tramadol for pain and Plavix. She will follow-up with oncology cardiology as well as surgery. Patient has been tolerating oral intake she did have 1 bowel movement today which had a small amount of blood in it. She was advised that she began to bleed to really go to the hospital for evaluation. Hemoglobin has been stable currently 10 monitor hemoglobin as outpatient. Patient verbalizes understanding she is ready for discharge this time - Time Spent with Patient Total time spent providing and/or coordinating discharge services: - Discharge Medications Prescriptions: New Clopidogrel [Plavix] 75 mg PO DAILY #30 tablet Ferrous Sulfate 325 mg PO BIDWM #60 tablet Tramadol HCl [Ultram] 50 mg PO TID PRN 5 Days #15 tab PRN Reason: Pain Continued Omeprazole [PriLOSEC] 20 mg PO QAM Pravastatin Sodium [Pravachol] 40 mg PO QPM Magnesium Oxide [Magnesium] 400 mg PO QPM PRN PRN Reason: LOW MAGNESIUM Escitalopram [Lexapro] 10 mg PO QPM Metoprolol Succinate [Toprol Xl] 25 mg PO QAM Losartan/Hydrochlorothiazide [Losartan-Hctz 100-25 mg Tab] 1 tab PO QPM Aspirin [Lo-Dose Aspirin EC] 81 mg PO QAM Loperamide [Imodium] 2 mg PO QID PRN PRN Reason: LOOSE STOOLS Gabapentin 600 mg PO TID Home Medications: Magnesium Oxide [Magnesium] 400 mg PO QPM PRN 02/04/15 [History] Omeprazole [PriLOSEC] 20 mg PO QAM 02/04/15 [History] Pravastatin Sodium [Pravachol] 40 mg PO QPM 02/04/15 [History] Escitalopram [Lexapro] 10 mg PO QPM 01/03/18 [History] Metoprolol Succinate [Toprol Xl] 25 mg PO QAM 01/03/18 [History] Losartan/Hydrochlorothiazide [Losartan-Hctz 100-25 mg Tab] 1 tab PO QPM 05/08/18 [History] Aspirin [Lo-Dose Aspirin EC] 81 mg PO QAM 10/08/18 [History] Gabapentin 600 mg PO TID 10/08/18 [History] Loperamide [Imodium] 2 mg PO QID PRN 10/08/18 [History] Clopidogrel [Plavix] 75 mg PO DAILY #30 tablet 10/09/18 [Rx] Ferrous Sulfate 325 mg PO BIDWM #60 tablet 10/11/18 [Rx] Tramadol HCl [Ultram] 50 mg PO TID PRN 5 Days #15 tab 10/11/18 [Rx] Allergies/Adverse Reactions: Allergy/AdvReac Type Severity Reaction Status Date / Time Penicillins Allergy Mild Rash/HIVES/SCRATCHY Verified 10/08/18 20:41 THROAT pregabalin [From Lyrica] AdvReac Mild FORGETFULL/ Verified 10/08/18 20:41 LETHARGIC latex AdvReac Unknown RASH/BLISTE Verified 10/08/18 20:41 RS Date of admission: 10/09/18 14:41 Primary care physician: Andrew Chen MD Consults: 10/08/18 16:18 Consult to Cardiac Rehabilitation-Phase1 [CONS] Routine Comment: Reason for Consult: post op PCI Call Completed: Yes 10/09/18 10:52 Consult to Gastroenterology [CONS] Routine Consulting Provider: Gastroenterology Kinney Reason for Consult: s/p stenting, on asa and plavix now, GI bleed/anemia this am Call Completed: Yes 10/10/18 13:24 Consult to Oncology Hematology [CONS] Routine Consulting Provider: Yvrose Zavaleta Reason for Consult: Transverse colon mass Time Notified: 13:25 Call Completed: Yes 10/10/18 15:17 Consult to Surgery [CONS] Routine Consulting Provider: Acute Care Surgery Reason for Consult: non obstructive transverse colon Time Notified: 15:18 Call Completed: Yes Discharging clinician: Esther Felix Anticipated date of discharge: 10/11/18 - Constitutional Vitals: Temp Pulse Resp BP Pulse Ox 98.3 F 67 16 127/75 96 10/11/18 11:22 10/11/18 11:22 10/11/18 11:22 10/11/18 11:22 10/11/18 11:22 General appearance: Present: cooperative, A&O X 3, no acute distress, answers questions appropriately Exam: Skin: Free of rash and discoloration. Eyes: Sclera is white. There is no discharge from eyes. ENMT: Oral/pharyngeal mucosa is normal in appearance. There is no discharge from nose or ears. Respiratory: Normal breath sounds with no crackles and wheezes bilaterally. CV: Heart is regular with no gallop or murmur. GI: Abdomen is flat and soft with no palpable mass or visceromegaly. : There is no tenderness in patient's flanks bilaterally. Neuro exam: He has good strength in upper and lower extremities. He has normal eye movements. Psychiatric: He has normal affect. His thought process is appropriate to the situation. - Patient Status Disposition: Home, Self-Care Functional capacity at discharge: independent ambulation Overall status at discharge: patient is back to baseline - Ambulatory Orders Ambulatory Orders: Complete Blood Count [HEME] Time Frame: 10/15/18, Facility: [facility], Location: Lab - Discharge Instructions Follow Up With: Andrew Chen MD [Primary Care Provider] - - Diet and Activity Activity: increase activity as tolerated Diet: advance to your usual diet - VTE Reasons for not Prescribing Prophylaxis: Medical contraindication
[2018-10-11] MEDS ORDERED: traMADol 50 MG TABLET PO PRN (12:14)
[2018-10-11] MEDS ORDERED: Adenosine 90 MG/30 ML MLS IV ONE (14:35)
== END 2018-10-11 14:36 | disposition home or self-care (01) ==
LOC: INVDIALAB 10:51 → 3BNU 10:51 → SUATTDRO 10-09 14:41
PROVIDERS: ADMIT Internal Medicine Cardiovascular Disease; ATTEND Family Medicine
PROC: ENDOEBX (2018-10-10 08:00)

== ENCOUNTER 2018-10-22 19:03 | Observation (INO) ==
--- NOTE | 2018-10-22 20:06 | Emergency Department Note ---
Disposition Clinical Impression: Rectal bleeding Colon cancer Qualifiers: Colon location: unspecified part of colon Qualified Code(s): C18.9 - Malignant neoplasm of colon, unspecified Disposition: Admitted As Inpatient Condition: Serious Referrals: Andrew Chen MD [Primary Care Provider] - Forms: ED Satisfaction Letter Time of Disposition: 21:34 General Adult HPI - General Chief complaint: ED GI Bleed Stated complaint: rectal bleeding/colon cancer Time Seen by Provider: 10/22/18 19:36 Source: patient Mode of arrival: ambulatory Limitations: no limitations Nursing Notes Reviewed: Yes Vital Signs Reviewed: Yes - History of Present Illness HPI Narrative: 58 yo female with recent medical history of a heart stent and diagnosis of colon cancer presents to the emergency department for rectal bleeding. Patient states that she had a heart stent placed October 09, shortly after the stent placement she had rectal bleeding which led to diagnosis of new colon cancer. The bleeding was controlled at that time but she is now on Plavix. She has had a few loose stools since then that have appeared to have some blood on them but today she had 5-6 bloody bowel movements. She saw Dr. Kirk and is scheduled for colon surgery with Dr. Allen on November 17 but she states the several bloody bowel movements scared her today. She describes them as bright red blood covering the stool and not as dark tarry stools or blood on the tissue paper. She has felt more lightheaded than normal recently and feels tired. She denies chest pain or shortness of breath. She has not had any increased abdominal pain, nausea and vomiting, or diarrhea. Pain Scale: 8 - Related Data Home Medications Medication Instructions Recorded Confirmed Magnesium Oxide [Magnesium] 400 mg PO QPM PRN 02/04/15 10/21/18 Omeprazole [PriLOSEC] 20 mg PO QAM 02/04/15 10/21/18 Pravastatin Sodium [Pravachol] 40 mg PO QPM 02/04/15 10/21/18 Escitalopram [Lexapro] 10 mg PO QPM 01/03/18 10/21/18 Metoprolol Succinate [Toprol Xl] 25 mg PO QAM 01/03/18 10/21/18 Gabapentin 800 mg PO TID 10/08/18 10/21/18 Loperamide [Imodium] 2 mg PO QID PRN 10/08/18 10/21/18 Losartan/Hydrochlorothiazide 1 each PO DAILY 10/21/18 10/21/18 [Losartan-Hctz 100-25 mg Tab] Tramadol HCl [Ultram] 50 mg PO TID PRN 10/21/18 10/21/18 Dicyclomine [Bentyl] 10 mg PO TID 10/22/18 10/22/18 Loratadine [Claritin] 10 mg PO DAILY 10/22/18 10/22/18 Nitrofurantoin (BID) [Macrobid] 100 mg PO Q12H 10/22/18 10/22/18 Previous Rx's Medication Instructions Recorded Clopidogrel [Plavix] 75 mg PO DAILY #30 tablet 10/09/18 Ferrous Sulfate 325 mg PO BIDWM #60 tablet 10/11/18 Allergies Allergy/AdvReac Type Severity Reaction Status Date / Time Penicillins Allergy Mild Rash/HIVES/SCRATCHY Verified 10/21/18 13:51 THROAT pregabalin [From Lyrica] AdvReac Mild FORGETFULL/ Verified 10/21/18 13:51 LETHARGIC latex AdvReac Unknown RASH/BLISTE Verified 10/21/18 13:51 RS All systems ED: reviewed and negative except as stated. Review of Systems: As Per HPI Constitutional: Denies: fever, chills, weakness Cardiovascular: Denies: chest pain, palpitations, dyspnea on exertion Respiratory: Denies: cough, dyspnea, wheezes Gastrointestinal: Reports: hematochezia. Denies: abdominal pain, nausea, vomiting, diarrhea Genitourinary: Denies: dysuria, hematuria Musculoskeletal: Denies: back pain, neck pain Integumentary: Denies: rash Neurological: Denies: headache, vertigo Endocrine: Reports: fatigue Past Medical History - Past Medical History Attestation: Yes The following information was validated with the patient. Source: patient Medical history: Reports: asthma, cancer, COPD, hyperlipidemia, hypertension, kidney stones Surgical history: Reports: cholecystectomy, other Psychiatric history: Reports: depression, PTSD - Social History Smoking Status: Current every day smoker Smokeless Tobacco Status: No Alcohol use: Reports: none Drug use: Reports: none Physical Exam - General Limitations: no limitations General appearance: alert, in no apparent distress - Head Head exam: atraumatic, normocephalic - Eye Eye exam: Present: normal appearance, PERRL, EOMI, other (Conjunctiva pallor) - ENT ENT exam: normal exam, normal oropharynx - Neck Neck exam: Present: normal inspection. Absent: tenderness, lymphadenopathy - Chest Chest inspection: Present: normal inspection. Absent: tenderness, rash - Respiratory Respiratory exam: Present: normal lung sounds bilaterally. Absent: wheezes - Cardiovascular Cardiovascular exam: Present: regular rate, normal rhythm - Abdominal Exam Abdominal exam: Present: soft, Non-Tender. Absent: distention, guarding, rebound, rigidity - Extremities Exam Extremities exam: Present: normal inspection. Absent: tenderness, pedal edema - Neurological Exam Neurological exam: Present: alert, oriented X3 - Psychiatric Psychiatric exam: Present: normal affect, normal mood - Skin Skin exam: Present: warm, dry, intact Course Vital Signs Temperature 97.6 F 10/22/18 19:05 Pulse Rate 93 10/22/18 19:05 Respiratory Rate 20 10/22/18 19:05 Blood Pressure 121/72 10/22/18 19:05 O2 Sat by Pulse Oximetry 98 10/22/18 19:05 Temperature 97.6 F 10/22/18 19:05 Pulse Rate 93 10/22/18 19:05 Respiratory Rate 20 10/22/18 19:05 Blood Pressure 121/72 10/22/18 19:05 O2 Sat by Pulse Oximetry 98 10/22/18 19:05 Oxygen Delivery Oxygen Delivery Room Air Medical Decision Making - MDM Narrative Medical decision making narrative: Patient is here with recent colon cancer diagnosis and rectal bleeding, currently on Plavix. We will evaluate her with labs including CBC, BMP, type and screen and obtain an EKG. 2039 - patient has had a 1 g drop of her hemoglobin since yesterday. EKG does not demonstrate any acute abnormalities. All other lab work is at the patient's baseline. Patient will be admitted for observation to make sure that her bleeding stops. Patient is agreeable with this plan of care. 2129 - pt has been accepted by hospitalist for monitoring. - Medical Records Medical records reviewed: Yes I reviewed the patient's medical records. - Lab Data Lab results reviewed: Yes I reviewed the patient's lab results. Result diagrams: 10/22/18 19:56 10/22/18 19:56 Lab Results 10/22/18 10/22/18 10/22/18 Range/Units 19:56 19:56 19:56 WBC 11.7 H (4.3-11.1) K/mcL RBC 3.79 L (3.82-4.97) M/mcL Hgb 9.9 L (11.5-15.4) g/dL Hct 32.1 L (35.3-44.9) % MCV 84.7 (83.0-100.0) fL MCH 26.1 L (28.0-33.3) pg MCHC 30.8 L (31.6-35.5) g/dL RDW 16.0 H (11.5-14.5) % Plt Count 290 (140-400) K/mcL MPV 11.1 (9.4-12.4) fL Immature Gran % 1.3 (0-4) % Seg Neutrophils % 67.4 % Lymphocytes % 25.0 % Monocytes % 5.2 % Eosinophils % 0.8 % Basophils % 0.3 % Neutrophils # 7.9 (1.6-8.9) K/mcL Lymphocytes # 2.9 (0.6-4.6) K/mcL Monocytes # 0.6 (0.0-1.3) K/mcL Eosinophils # 0.1 (0.0-0.6) K/mcL Basophils # 0.0 (0.0-0.2) K/mcL PT 11.9 (9.4-12.1) Seconds INR 1.1 Sodium (136-145) mEq/L Potassium (3.5-5.1) mEq/L Chloride (98-107) mEq/L Carbon Dioxide (23-29) mEq/L BUN (8-23) mg/dL Creatinine (0.60-1.20) mg/dL Est GFR ( Amer) (> 60) Est GFR (Non-Af Amer) (> 60) BUN/Creatinine Ratio (6-26) Glucose (70-105) mg/dL Calculated Osmolality (280-300) Calcium (8.6-10.3) mg/dL Blood Type A POSITIVE Antibody Screen NEGATIVE 10/22/18 Range/Units 19:56 WBC (4.3-11.1) K/mcL RBC (3.82-4.97) M/mcL Hgb (11.5-15.4) g/dL Hct (35.3-44.9) % MCV (83.0-100.0) fL MCH (28.0-33.3) pg MCHC (31.6-35.5) g/dL RDW (11.5-14.5) % Plt Count (140-400) K/mcL MPV (9.4-12.4) fL Immature Gran % (0-4) % Seg Neutrophils % % Lymphocytes % % Monocytes % % Eosinophils % % Basophils % % Neutrophils # (1.6-8.9) K/mcL Lymphocytes # (0.6-4.6) K/mcL Monocytes # (0.0-1.3) K/mcL Eosinophils # (0.0-0.6) K/mcL Basophils # (0.0-0.2) K/mcL PT (9.4-12.1) Seconds INR Sodium 136 (136-145) mEq/L Potassium 4.0 (3.5-5.1) mEq/L Chloride 100 (98-107) mEq/L Carbon Dioxide 31 H (23-29) mEq/L BUN 14 (8-23) mg/dL Creatinine 0.83 (0.60-1.20) mg/dL Est GFR ( Amer) > 60 (> 60) Est GFR (Non-Af Amer) > 60 (> 60) BUN/Creatinine Ratio 17 (6-26) Glucose 109 H (70-105) mg/dL Calculated Osmolality 283 (280-300) Calcium 9.4 (8.6-10.3) mg/dL Blood Type Antibody Screen - EKG Data EKG #1 EKG attestation: Yes I reviewed and interpreted this EKG. EKG results narrative: EKG obtained at 20:26 on 10/22/2018 Heart rate 84 bpm, [place] interval 1625, QRS ratio 91, QT 393, QTC 465 Sinus rhythm without any ST segment elevations or depressions. No other T-wave abnormalities. Unchanged when compared to previous EKG dated 11/12/2016. Attestation Statement - Attestation Attestation: I, Francisco Low DO, examined this patient [id number] and my medical decision-making was reviewed withLaina Grace DO, Resident Physician. I agree with the documented findings, disposition and treatment plan as described except to the extent set forth below. I personally supervised and was present for the harding/critical portions of the procedures completed by the resident documented below. Please see my progress notes for details.
[2018-10-22 20:07] LABS: Basophils % 0.3 %; Eosinophils # 0.1 K/mcL (0.0-0.6); Eosinophils % 0.8 %; Hematocrit 32.1 % (35.3-44.9); Hemoglobin 9.9 g/dL (11.5-15.4); Immature Granulocytes % 1.3 % (0-4); Lymphocytes # 2.9 K/mcL (0.6-4.6); Mean Corpuscular HGB Conc 30.8 g/dL (31.6-35.5); Mean Corpuscular Hemoglobin 26.1 pg (28.0-33.3); Mean Corpuscular Volume 84.7 fL (83.0-100.0); Mean Platelet Volume 11.1 fL (9.4-12.4); Monocytes # 0.6 K/mcL (0.0-1.3); Monocytes % 5.2 %; Neutrophils # 7.9 K/mcL (1.6-8.9); Platelet Count 290 K/mcL (140-400); Red Blood Count 3.79 M/mcL (3.82-4.97); Segmented Neutrophils % 67.4 %; White Blood Count 11.7 K/mcL (4.3-11.1)
[2018-10-22 20:14] LABS: INR 1.1; Prothrombin Time 11.9 Seconds (9.4-12.1)
[2018-10-22 20:26] LABS: BUN/Creatinine Ratio 17 (6-26); Blood Urea Nitrogen 14 mg/dL (8-23); Calcium 9.4 mg/dL (8.6-10.3); Carbon Dioxide 31 mEq/L (23-29); Chloride 100 mEq/L (98-107); Glucose 109 mg/dL (70-105); Osmolality,Calculated 283 (280-300); Sodium 136 mEq/L (136-145); eGFR For African Americans > 60 (> 60); eGFR For Non-African Americans > 60 (> 60)
--- NOTE | 2018-10-22 20:30 | Emergency Department Note ---
Disposition Clinical Impression: Rectal bleeding Colon cancer Qualifiers: Colon location: unspecified part of colon Qualified Code(s): C18.9 - Malignant neoplasm of colon, unspecified Disposition: Admitted As Inpatient Condition: Fair Time of Disposition: 21:00 General Adult HPI - General Chief complaint: ED GI Bleed Stated complaint: rectal bleeding/colon cancer Time Seen by Provider: 10/22/18 19:36 Source: patient Mode of arrival: ambulatory Limitations: no limitations - History of Present Illness Pain Scale: 8 - Related Data Home Medications Medication Instructions Recorded Confirmed Magnesium Oxide [Magnesium] 400 mg PO QPM PRN 02/04/15 10/22/18 Omeprazole [PriLOSEC] 20 mg PO QAM 02/04/15 10/22/18 Pravastatin Sodium [Pravachol] 40 mg PO QPM 02/04/15 10/22/18 Escitalopram [Lexapro] 10 mg PO QPM 01/03/18 10/22/18 Metoprolol Succinate [Toprol Xl] 25 mg PO QAM 01/03/18 10/22/18 Gabapentin 600 mg PO TID 10/08/18 10/22/18 Loperamide [Imodium] 2 mg PO QID PRN 10/08/18 10/22/18 Losartan/Hydrochlorothiazide 1 each PO DAILY 10/21/18 10/22/18 [Losartan-Hctz 100-25 mg Tab] Tramadol HCl [Ultram] 50 mg PO TID PRN 10/21/18 10/22/18 Dicyclomine [Bentyl] 10 mg PO TID 10/22/18 10/22/18 Loratadine [Claritin] 10 mg PO DAILY 10/22/18 10/22/18 Nitrofurantoin (BID) [Macrobid] 100 mg PO Q12H 10/22/18 10/22/18 Previous Rx's Medication Instructions Recorded Clopidogrel [Plavix] 75 mg PO DAILY #30 tablet 10/09/18 Ferrous Sulfate 325 mg PO BIDWM #60 tablet 10/11/18 Allergies Allergy/AdvReac Type Severity Reaction Status Date / Time Penicillins Allergy Mild Rash/HIVES/SCRATCHY Verified 10/21/18 13:51 THROAT pregabalin [From Lyrica] AdvReac Mild FORGETFULL/ Verified 10/21/18 13:51 LETHARGIC latex AdvReac Unknown RASH/BLISTE Verified 10/21/18 13:51 RS Constitutional: Denies: fever, chills, weakness Cardiovascular: Denies: chest pain, palpitations, dyspnea on exertion Respiratory: Denies: cough, dyspnea, wheezes Gastrointestinal: Reports: hematochezia. Denies: abdominal pain, nausea, vomiting, diarrhea Genitourinary: Denies: dysuria, hematuria Musculoskeletal: Denies: back pain, neck pain Integumentary: Denies: rash Neurological: Denies: headache, vertigo Endocrine: Reports: fatigue Past Medical History - Past Medical History Medical history: Reports: asthma, cancer, COPD, hyperlipidemia, hypertension, kidney stones Surgical history: Reports: cholecystectomy, other Psychiatric history: Reports: depression, PTSD - Social History Smoking Status: Current every day smoker Smokeless Tobacco Status: No Alcohol use: Reports: none Drug use: Reports: none Physical Exam - General Limitations: no limitations General appearance: alert, in no apparent distress Course Vital Signs Temperature 97.6 F 10/22/18 19:05 Pulse Rate 93 10/22/18 19:05 Respiratory Rate 20 10/22/18 19:05 Blood Pressure 121/72 10/22/18 19:05 O2 Sat by Pulse Oximetry 98 10/22/18 19:05 Temperature 97.8 F 10/23/18 08:17 Pulse Rate 76 10/23/18 08:17 Respiratory Rate 18 10/23/18 08:17 Blood Pressure 103/63 10/23/18 08:17 O2 Sat by Pulse Oximetry 95 10/23/18 08:17 Oxygen Delivery Oxygen Delivery Room Air Medical Decision Making - Lab Data Result diagrams: 10/23/18 07:50 10/22/18 19:56 Lab Results 10/22/18 10/22/18 10/22/18 Range/Units 19:56 19:56 19:56 WBC 11.7 H (4.3-11.1) K/mcL RBC 3.79 L (3.82-4.97) M/mcL Hgb 9.9 L (11.5-15.4) g/dL Hct 32.1 L (35.3-44.9) % MCV 84.7 (83.0-100.0) fL MCH 26.1 L (28.0-33.3) pg MCHC 30.8 L (31.6-35.5) g/dL RDW 16.0 H (11.5-14.5) % Plt Count 290 (140-400) K/mcL MPV 11.1 (9.4-12.4) fL Immature Gran % 1.3 (0-4) % Seg Neutrophils % 67.4 % Lymphocytes % 25.0 % Monocytes % 5.2 % Eosinophils % 0.8 % Basophils % 0.3 % Neutrophils # 7.9 (1.6-8.9) K/mcL Lymphocytes # 2.9 (0.6-4.6) K/mcL Monocytes # 0.6 (0.0-1.3) K/mcL Eosinophils # 0.1 (0.0-0.6) K/mcL Basophils # 0.0 (0.0-0.2) K/mcL PT 11.9 (9.4-12.1) Seconds INR 1.1 Sodium (136-145) mEq/L Potassium (3.5-5.1) mEq/L Chloride (98-107) mEq/L Carbon Dioxide (23-29) mEq/L BUN (8-23) mg/dL Creatinine (0.60-1.20) mg/dL Est GFR ( Amer) (> 60) Est GFR (Non-Af Amer) (> 60) BUN/Creatinine Ratio (6-26) Glucose (70-105) mg/dL Calculated Osmolality (280-300) Calcium (8.6-10.3) mg/dL Blood Type A POSITIVE Antibody Screen NEGATIVE 10/22/18 Range/Units 19:56 WBC (4.3-11.1) K/mcL RBC (3.82-4.97) M/mcL Hgb (11.5-15.4) g/dL Hct (35.3-44.9) % MCV (83.0-100.0) fL MCH (28.0-33.3) pg MCHC (31.6-35.5) g/dL RDW (11.5-14.5) % Plt Count (140-400) K/mcL MPV (9.4-12.4) fL Immature Gran % (0-4) % Seg Neutrophils % % Lymphocytes % % Monocytes % % Eosinophils % % Basophils % % Neutrophils # (1.6-8.9) K/mcL Lymphocytes # (0.6-4.6) K/mcL Monocytes # (0.0-1.3) K/mcL Eosinophils # (0.0-0.6) K/mcL Basophils # (0.0-0.2) K/mcL PT (9.4-12.1) Seconds INR Sodium 136 (136-145) mEq/L Potassium 4.0 (3.5-5.1) mEq/L Chloride 100 (98-107) mEq/L Carbon Dioxide 31 H (23-29) mEq/L BUN 14 (8-23) mg/dL Creatinine 0.83 (0.60-1.20) mg/dL Est GFR ( Amer) > 60 (> 60) Est GFR (Non-Af Amer) > 60 (> 60) BUN/Creatinine Ratio 17 (6-26) Glucose 109 H (70-105) mg/dL Calculated Osmolality 283 (280-300) Calcium 9.4 (8.6-10.3) mg/dL Blood Type Antibody Screen Attestation Statement - Attestation Attestation: I, Francisco Low DO, examined this patient [id number] and my medical de cision-making was reviewed with Laina Grace DO, Resident Physician. I agree with the documented findings, disposition and treatment plan as described except to the extent set forth below. I personally supervised and was present for the harding/critical portions of the procedures completed by the resident documented below. Please see my progress notes for details. 58-year-old female presents emergency room for evaluation of bright red blood per rectum. Patient sent 5-6 episodes of that here today. Patient has a known history of colon cancer that was found within the last 2 weeks. Patient was placed on Plavix secondary to a heart catheter is completed on October 09. She is denying any chest pain or shortness of breath at this time. She has not had any nausea vomiting or diarrhea. No fevers no chills. She denies any falls trauma or injury. Patient's only complaint is mild abdominal discomfort in the right upper quadrant of the abdomen where her cancer is. She is also had bright red blood per rectum. She has not had any falls or lightheadedness noted. Vital signs reviewed and are stable. Patient's blood pressure is slightly low. Head is atraumatic. Conjunctiva is normal. Pupils are round reactive. Oropharynx is patent. Trachea is midline. Lungs are clear. Heart is regular. Abdomen is soft nontender nondistended with no guarding no rigidity no peritoneal symptoms. Extremities otherwise normal. No signs of active bleeding noted at this time. Patient says that she has blood in her stool every time she goes to the bathroom. No other acute findings noted during the workup and initial evaluation. Screening labs including a CBC chemistry coagulation studies as well as type and screen will be ordered at this time. Patient does not require any need it CT scan at this time considering she said most recent evaluation also colonoscopy. There is any significant changes or concern we will add on imaging modalities at this point. IV access will be obtained symptomatically controlled to be completed. See detailed documentation the physical exam, medical intervention, medical decision-making disposition the resident physician's note. No critical care applied the patient's treatment course at this time. EKG was reviewed by myself in documented by the resident physician in the charting. 2100 Patient has a moderate drop in her hemoglobin here. She is otherwise been hemodynamically stable. She does not require immediate intervention at this point. This was discussed with the hospitalist Dr. George who reviewed the case. He is happy with the patient for moderately sure there is no other acute bleeds the gastroenterology intervention if needed. Patient is otherwise clinical stable. Patient will be monitored here in the emergency department until admission process is completed
[2018-10-22] MEDS ORDERED: traMADol 50 MG TABLET PO PRN (22:37)
[2018-10-22] MEDS: 0.9 % Sodium Chloride 1,000 ML IVC SCH (23:19)
--- NOTE | 2018-10-22 23:28 | Internal Med History&Physical ---
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 Due to the bleeding, aspirin was discontinued and was recommended she remain on clopidogrel. She is scheduled for hemicolectomy on 11/17 however she presented to the emergency room today stating that she has had 6-7 bloody bowel movements. She denies associated abdominal pain but says that the bleeding has increased as frequently she would have blood on tissue paper per right now she has lonny bright red blood covering the bowl. She has become more lightheaded and fatigued since then. She denies chest pain or shortness of breath as well as increased abdominal pain, nausea, vomiting or diarrhea. In the ER she was seen hemodynamically stable. Lab work revealed a 1 g drop in hemoglobin in the last 24 hours. She is admitted for further evaluation. Vitals: Reviewed General: Well-developed white woman lying in bed in no acute distress. Skin: Warm and dry. HEENT: Moist mucous membranes. + conjunctivae pallor. Neck: No lymphadenopathy. No JVD. No carotid bruits. No palpable thyroid. Chest: Normal thoracic expansion. Normal breath sounds. Clear to auscultation. Heart: Normal S1 & S2; rhythmic. No rubs or murmurs. Abdomen: Mildly distended, soft and minimally tender to palpation in the mid upper abdomen. No peritoneal reaction. Extremities: No clubbing, cyanosis or edema. No calf tenderness. Normal distal p ulses. Neurological: Awake, alert and oriented to person, place and time. No focal deficits. Psych: Affect appropriate. Assessment/Plan 1. Lower GI bleed: Seemingly secondary to colon cancer while on antiplatelet therapy. Given the recent SRIKANTH placement, she is at risk of instent stenosis if she discontinues the antiplatelet medication (currently only on 1 instead of dual) however she is now having ongoing bleeding episodes which can destabilize her. For now her hemodynamics are fine but her bleeding is ongoing. Will consult surgery for evaluation as her intervention may need to be expedited. Will also consult cardiology for recommendations on stopping/holding antiplatelet therapy if feasible or not. Will keep her NPO until evaluated. Place her on IVF and H/H q4hrs with plan to transfuse if she goes below 8g/dl. 2. CAD: S/p SRIKANTH. Adherent to antiplatelet therapy. Further mgmt. as above. 3. HTN: Antihypertensives will be on hold for now. 4. HLD: On statins. Past Med Surg Social Fam HX - Past Medical History Medical history: asthma, cancer, COPD, hyperlipidemia, hypertension, kidney stones Additional medical history: colon cancer,Ulcers Psychiatric history: depression, PTSD - Past Surgical History Surgical History: cholecystectomy, other Additional surgical history: [facility] - spinal stimulator - Social History Smoking Status: Current every day smoker Smokeless Tobacco Status: No Alcohol use: none Drug use: none - Family History Mother Living Status: Hx Family Endocrine Disorder: Yes (DM) Father Living Status: Hx Family Cardiac Disorders: Yes (Angina) Hx Family Cancer: Yes ([place]) Internal Medicine - H&P: Meds Magnesium Oxide [Magnesium] 400 mg PO QPM PRN 02/04/15 [History] Omeprazole [PriLOSEC] 20 mg PO QAM 02/04/15 [History] Pravastatin Sodium [Pravachol] 40 mg PO QPM 02/04/15 [History] Escitalopram [Lexapro] 10 mg PO QPM 01/03/18 [History] Metoprolol Succinate [Toprol Xl] 25 mg PO QAM 01/03/18 [History] Gabapentin 600 mg PO TID 10/08/18 [History] Loperamide [Imodium] 2 mg PO QID PRN 10/08/18 [History] Clopidogrel [Plavix] 75 mg PO DAILY #30 tablet 10/09/18 [Rx] Ferrous Sulfate 325 mg PO BIDWM #60 tablet 10/11/18 [Rx] Losartan/Hydrochlorothiazide [Losartan-Hctz 100-25 mg Tab] 1 each PO DAILY 10/21/18 [History] Tramadol HCl [Ultram] 50 mg PO TID PRN 10/21/18 [History] Dicyclomine [Bentyl] 10 mg PO TID 10/22/18 [History] Loratadine [Claritin] 10 mg PO DAILY 10/22/18 [History] Nitrofurantoin (BID) [Macrobid] 100 mg PO Q12H 10/22/18 [History] Allergy/AdvReac Type Severity Reaction Status Date / Time Penicillins Allergy Mild Rash/HIVES/SCRATCHY Verified 10/21/18 13:51 THROAT pregabalin [From Lyrica] AdvReac Mild FORGETFULL/ Verified 10/21/18 13:51 LETHARGIC latex AdvReac Unknown RASH/BLISTE Verified 10/21/18 13:51 RS All Systems PM: A 10-system review of systems was performed and is negative for pertinent findings except as documented above in the HPI. - Constitutional Vitals: Temp Pulse Resp BP Pulse Ox 97.6 F 85 15 113/76 95 10/22/18 23:05 10/22/18 23:05 10/22/18 23:05 10/22/18 23:05 10/22/18 23:05 Exam: . Internal Med - H&P Results - Labs CBC & Chem 7: 10/22/18 19:56 10/22/18 19:56 Labs: Short CBC 10/22/18 Range/Units 19:56 WBC 11.7 H (4.3-11.1) K/mcL Hgb 9.9 L (11.5-15.4) g/dL Hct 32.1 L (35.3-44.9) % Plt Count 290 (140-400) K/mcL Neutrophils # 7.9 (1.6-8.9) K/mcL BMP 10/22/18 19:56 Sodium 136 Potassium 4.0 Chloride 100 Carbon Dioxide 31 H BUN 14 Creatinine 0.83 Glucose 109 H Calcium 9.4 - Time Spent With Patient Total time spent is greater than 50% in coordination of care (as documented) at patient's floor/unit and/or counseling patient: Greater than 35 minutes
[2018-10-23 00:38] LABS: Hematocrit 29.6 % (35.3-44.9); Hemoglobin 9.2 g/dL (11.5-15.4)
[2018-10-23] MEDS ORDERED: Acetaminophen 325 MG TABLET PO ONE (03:51)
[2018-10-23 05:08] LABS: Hematocrit 29.4 % (35.3-44.9); Hemoglobin 9.1 g/dL (11.5-15.4)
[2018-10-23] MEDS: 0.9 % Sodium Chloride 1,000 ML IVC SCH (07:19)
--- NOTE | 2018-10-23 08:17 | Electrocardiograph Report ---
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
[2018-10-23 08:56] LABS: Hematocrit 27.1 % (35.3-44.9); Hemoglobin 8.4 g/dL (11.5-15.4)
--- NOTE | 2018-10-23 09:22 | Event Note ---
<Joel Duran - Last Filed: 10/23/18 09:23> Date of Encounter: 10/23/18 Time of Encounter: 09:00 - Cardiology Event Note Laboratory Tests 10/22/18 10/22/18 10/23/18 19:56 19:56 00:10 Hgb 9.2 L Hct 29.6 L INR 1.1 Creatinine 0.83 Est GFR (Non-Af Amer) > 60 S/p C 10/08/18: PTCA/drug-eluting stent to mid LAD 60% lesion. Discussed and reviewed with Dr. Abad, recs remain unchanged from 2 weeks ago: already off asa; continue plavix until planned Hemicolectomy 11/17/18. CP free. Patient verbalized understanding. <Maryann Abad - Last Filed: 10/23/18 11:38> Date of Encounter: 10/23/18 - Cardiology Event Note I have personally performed a face to face evaluation on this patient. I have reviewed and agree with the care plan. History and Exam by me shows: Status post-PCI to mid LAD with presentation of possible lower GI bleed. Hemoglobin somewhat stable no significant drop below 9.0. Patient to continue Plavix unless life-threatening bleed. Patient has scheduled surgery for November 22. Plavix can be stopped 1 week prior to surgery and will carry a moderate risk for stent thrombosis.
[2018-10-23] MEDS: Gabapentin 300 MG CAPSULE PO SCH ×3 (11:01→21:23)
[2018-10-23] MEDS: Loratadine 10 MG TABLET PO SCH (11:01)
[2018-10-23] MEDS: Metoprolol XL (24 HR) Succ 25 MG TAB.ER.24H PO SCH (11:08)
--- NOTE | 2018-10-23 11:09 | General Surgery Consult Note ---
<Gali Romero - Last Filed: 10/23/18 11:04> Date of Encounter: 10/23/18 Time of Encounter: 10:45 Assessment and Plan (1) Rectal bleeding Status: Acute Reviewed with patient that intermittent episodes of rectal bleeding could be expected and should be treated with supportive care including appropriate resuscitation which might also include transfusions. The plan for surgical intervention on 11/17/2018 has not changed. Patient should remain on her Plavix for as long as possible and moving up the surgery date would be reserved for emergent circumstances only. Okay for diet as tolerated from a surgical standpoint. Cares per primary team. Surgery will follow from a distance at this time. (2) Colonic mass Status: Chronic Intermittent rectal bleeding/oozing can be expected with this colonic mass. See above History of Present Illness Consult date: 10/23/18 (Dr. Elaine Allen) Reason for consult: other Requesting physician: Kimberli George History of present illness: Surgery has been consulted for recommendations regarding G.I. bleeding in the setting of mass of the transverse colon. Patient's past medical, surgical, social, and family history or again reviewed with the patient bedside and updated in the electronic medical record where indicated. Ms. Hernandez is well known to Dr. Allen. She is scheduled for a hemicolectomy on 11/17/2018 secondary to a mass in the mid-transverse colon with biopsies positive for intra-mucosal adenocarcinoma. She recently underwent a left heart latisha terization with SRIKANTH to the mid-LAD on 10/08/2018. She was started on aspirin Plavix at that time. It is noted she had Henry stopped the aspirin secondary to rectal bleeding. She has been seen by cardiology this visit and per their event note the recommendations have not changed. She should remain on the Plavix until her hemicolectomy. She reports approximately 6 to 7 bloody stools that were bright red blood and covered the toilet bowl. She felt a little more lightheaded and fatigued. She denied fever, chills, chest pain, shortness of breath, abdominal pain, nausea, vomiting. Her clinical course thus far included lab work which revealed a 1 g drop in hemoglobin in 24 hours. She has been appropriately resuscitated and presently her vital signs are stable. She reports she is hungry. Past Med Surg Social Fam HX - Past Medical History Source: patient Medical history: asthma, cancer, COPD, hyperlipidemia, hypertension, kidney stones Additional medical history: colon cancer,stomach Ulcers Psychiatric history: depression, PTSD - Past Surgical History Surgical History: appendectomy, cholecystectomy, hysterectomy, knee replacement, other Additional surgical history: [facility] - spinal stimulator. Heart stent 10/09/18 - Social History Smoking Status: Current every day smoker Packs per day: 1 Smokeless Tobacco Status: No Alcohol use: none Drug use: none - Family History Mother Living Status: Hx Family Endocrine Disorder: Yes (DM) Father Living Status: Hx Family Cardiac Disorders: Yes (Angina) Hx Family Cancer: Yes ([place]) Medications and Allergies Magnesium Oxide [Magnesium] 400 mg PO QPM PRN 02/04/15 [History] Omeprazole [PriLOSEC] 20 mg PO QAM 02/04/15 [History] Pravastatin Sodium [Pravachol] 40 mg PO QPM 02/04/15 [History] Escitalopram [Lexapro] 10 mg PO QPM 01/03/18 [History] Metoprolol Succinate [Toprol Xl] 25 mg PO QAM 01/03/18 [History] Gabapentin 600 mg PO TID 10/08/18 [History] Loperamide [Imodium] 2 mg PO QID PRN 10/08/18 [History] Clopidogrel [Plavix] 75 mg PO DAILY #30 tablet 10/09/18 [Rx] Ferrous Sulfate 325 mg PO BIDWM #60 tablet 10/11/18 [Rx] Losartan/Hydrochlorothiazide [Losartan-Hctz 100-25 mg Tab] 1 each PO DAILY 10/21/18 [History] Tramadol HCl [Ultram] 50 mg PO TID PRN 10/21/18 [History] Dicyclomine [Bentyl] 10 mg PO TID 10/22/18 [History] Loratadine [Claritin] 10 mg PO DAILY 10/22/18 [History] Nicotine Gum [Nicorette gum] 4 mg BC Q2H PRN 30 Days gum 10/24/18 [Rx] Allergy/AdvReac Type Severity Reaction Status Date / Time Penicillins Allergy Mild Rash/HIVES/SCRATCHY Verified 10/21/18 13:51 THROAT pregabalin [From Lyrica] AdvReac Mild FORGETFULL/ Verified 10/21/18 13:51 LETHARGIC latex AdvReac Unknown RASH/BLISTE Verified 10/21/18 13:51 RS Review of Systems All systems PM: reviewed and no additional remarkable complaints except as stated All systems PM: The remainder of the systems were reviewed and are negative General Surgery Exam Initial Vital Signs Temp Pulse Resp BP Pulse Ox 97.6 F 93 20 121/72 98 10/22/18 19:05 10/22/18 19:05 10/22/18 19:05 10/22/18 19:05 10/22/18 19:05 VITAL SIGNS: Reviewed. See [facility] GENERAL: In no apparent distress. HEENT: Normocephalic, atraumatic, pupils are equal and reactive, extraocular motions intact, oropharynx is pink and moist, there is no neck adenopathy or JVD noted. CHEST/RESPIRATORY: The thorax is free from signs of trauma. Lung sounds: clear to auscultation, normal respiratory effort CARDIAC: Regular rate and rhythm. VASCULAR: No Edema. 2+ peripheral pulses. ABDOMEN: obese, soft, nontender, active bowel sounds MUSCULOSKELETAL: Good range of motion of all major joints. Extremities without clubbing, cyanosis or edema. NEUROLOGIC EXAM: Alert and oriented x 3. Speech normal. Follows commands. PSYCHIATRIC: Mood normal. SKIN: No rash or lesions. Exam Initial Vital Signs Temp Pulse Resp BP Pulse Ox 97.6 F 93 20 121/72 98 10/22/18 19:05 10/22/18 19:05 10/22/18 19:05 10/22/18 19:05 10/22/18 19:05 Results - Labs 10/23/18 07:50 10/22/18 19:56 Abnormal lab results WBC 11.7 K/mcL (4.3-11.1) H 10/22/18 19:56 RBC 3.79 M/mcL (3.82-4.97) L 10/22/18 19:56 Hgb 8.4 g/dL (11.5-15.4) L 10/23/18 07:50 Hct 27.1 % (35.3-44.9) L 10/23/18 07:50 MCH 26.1 pg (28.0-33.3) L 10/22/18 19:56 MCHC 30.8 g/dL (31.6-35.5) L 10/22/18 19:56 RDW 16.0 % (11.5-14.5) H 10/22/18 19:56 Carbon Dioxide 31 mEq/L (23-29) H 10/22/18 19:56 Glucose 109 mg/dL (70-105) H 10/22/18 19:56 Diabetes panel 10/22/18 Range/Units 19:56 Sodium 136 (136-145) mEq/L Potassium 4.0 (3.5-5.1) mEq/L Chloride 100 (98-107) mEq/L Carbon Dioxide 31 H (23-29) mEq/L BUN 14 (8-23) mg/dL Creatinine 0.83 (0.60-1.20) mg/dL Glucose 109 H (70-105) mg/dL Calcium 9.4 (8.6-10.3) mg/dL Calcium panel 10/22/18 Range/Units 19:56 Calcium 9.4 (8.6-10.3) mg/dL Pituitary panel 10/22/18 Range/Units 19:56 Sodium 136 (136-145) mEq/L Potassium 4.0 (3.5-5.1) mEq/L Chloride 100 (98-107) mEq/L Carbon Dioxide 31 H (23-29) mEq/L BUN 14 (8-23) mg/dL Creatinine 0.83 (0.60-1.20) mg/dL Glucose 109 H (70-105) mg/dL Calcium 9.4 (8.6-10.3) mg/dL Adrenal panel 10/22/18 Range/Units 19:56 Sodium 136 (136-145) mEq/L Potassium 4.0 (3.5-5.1) mEq/L Chloride 100 (98-107) mEq/L Carbon Dioxide 31 H (23-29) mEq/L BUN 14 (8-23) mg/dL Creatinine 0.83 (0.60-1.20) mg/dL Glucose 109 H (70-105) mg/dL Calcium 9.4 (8.6-10.3) mg/dL All other labs normal. Consult Discharge Plan - Plan Referrals: Daniel Kirk MD [Partnered Physician] - (Office will call patient with follow up appointment date and time.) Andrew Chen MD [Primary Care Provider] - Prescriptions: Nicotine Gum [Nicorette gum] 4 mg BC Q2H PRN 30 Days gum PRN Reason: Nicotine Cravings <Elaine Allen - Last Filed: 10/28/18 17:29> Date of Encounter: 10/23/18 Time of Encounter: 15:20 Assessment and Plan (1) Colonic mass Status: Chronic patient is scheduled for surgery November 17 (2) Rectal bleeding Status: Acute patient with continued abdominal/RUQ pain blood in stools is tapering continue to monitor ideally would like to get patient out a month after her new SRIKANTH and stop plavix 5 days prior to her surgery. Risks and benefits have been discussed and she understands. If she were to have severe bleeding will re-evaluate plan at that time. start regular diet ok sliv will follow from distance, please call if urgent need trend Hb History of Present Illness History of present illness: Patient is known to me and has a partially obstructing proximal colon adenocarcinoma. Due to patient recently having a SRIKANTH placed in mid LAD with institution of plavix ideally would like to continue planned course of surgery on November 17 which would give patient 1 month of medical therapy before having to stop plavix for 5 days for surgery. She started passing bright red blood from the bottom yesterday. She had lightheadedness, still fatigued without other associated symptoms. She came to ER and was found to still be anemic but without significant drop in Hb Review of Systems All systems PM: reviewed and no additional remarkable complaints except as stated All systems PM: The remainder of the systems were reviewed and are negative General Surgery Exam Initial Vital Signs Temp Pulse Resp BP Pulse Ox 97.6 F 93 20 121/72 98 10/22/18 19:05 10/22/18 19:05 10/22/18 19:05 10/22/18 19:05 10/22/18 19:05 - General physical appearance well developed, well nourished, no distress, obese - ENT normal mucosa, normocephalic - Respiratory normal expansion, normal respiratory effort - Cardiovascular Cardiovascular exam: Present: RRR - Abdomen Abdomen general surgery: Present: soft, tender. Absent: guarding, rebound Abdominal Tenderness: Present: RUQ - Neurologic Present: CN 2-12 grossly intact - Musculoskeletal Present: normal gait - Psychiatric Psychiatric general surgery: Present: A&Ox3 Exam Initial Vital Signs Temp Pulse Resp BP Pulse Ox 97.6 F 93 20 121/72 98 10/22/18 19:05 10/22/18 19:05 10/22/18 19:05 10/22/18 19:05 10/22/18 19:05 Results - Labs 10/24/18 13:04 10/22/18 19:56 Abnormal lab results WBC 11.7 K/mcL (4.3-11.1) H 10/22/18 19:56 RBC 3.79 M/mcL (3.82-4.97) L 10/22/18 19:56 Hgb 8.8 g/dL (11.5-15.4) L 10/24/18 06:48 Hct 28.3 % (35.3-44.9) L 10/24/18 06:48 MCH 26.1 pg (28.0-33.3) L 10/22/18 19:56 MCHC 30.8 g/dL (31.6-35.5) L 10/22/18 19:56 RDW 16.0 % (11.5-14.5) H 10/22/18 19:56 Carbon Dioxide 31 mEq/L (23-29) H 10/22/18 19:56 Glucose 109 mg/dL (70-105) H 10/22/18 19:56 POC Glucose 106 mg/dL (70-99) H 10/23/18 12:18 All other labs normal. - Attending Attestation I have personally performed a face to face evaluation on this patient. I have reviewed and agree with the care plan. History and Exam by me shows:
--- NOTE | 2018-10-23 12:49 | Internal Med Progress Note ---
Hospitalist Progress Note - Encounter Date of Encounter: 10/23/18 Time of Encounter: 09:00 - Subjective Interval History: patient was seen and examined at bedside. denies further rectal bleeding. has had no catracho pain or palpitations. understands that we damion need to monitor H/h closely every 6 hours and will transfuse her below 8 she denies N/v/D has had no hematemesis. - Exam Vitals: Temp Pulse Resp BP Pulse Ox 97.6 F 72 16 102/55 96 10/23/18 11:00 10/23/18 11:10/23/18 11:10/23/18 11:10/23/18 11:00 Exam: Vitals: Reviewed General: obese, NAD, speaks in full sentences Skin: Warm and dry. HEENT: Moist mucous membranes. + conjunctivae pallor. Neck: No lymphadenopathy. No JVD. No carotid bruits. No palpable thyroid. Chest: Normal thoracic expansion. Normal breath sounds. Clear to auscultation. Heart: distant heart sounds secondary to body habitus. Normal S1 & S2; rhythmic. No rubs or murmurs. Abdomen: Mildly distended, soft and minimally tender to palpation in the mid upper abdomen. No peritoneal reaction. Extremities: No clubbing, cyanosis or edema. No calf tenderness. Normal distal pulses. Neurological: Awake, alert and oriented to person, place and time. No focal deficits. Psych: Affect appropriate. - Assessment and Plan (1) Colon cancer Current Visit: Yes Status: Acute (2) Rectal bleeding Current Visit: Yes Status: Acute (3) Acute blood loss anemia Current Visit: No Status: Acute (4) Morbid obesity with BMI of 40.0-44.9, adult Current Visit: No Status: Chronic (5) Obstructive sleep apnea Current Visit: No Status: Chronic - Summary of Assessment and Plan Summary of Assessment and Plan: acute on chronic anemia secondary to Lower GI bleed: has colon cancer (mass of the transverse colon.) while on antiplatelet therapy. Given the recent SRIKANTH placement, she is at risk of stent stenosis/thrombosis if she discontinues the antiplatelet medication (currently only on 1 instead of dual) however she is now having ongoing bleeding episodes which can destabilize her. cardiology consulted agreed to continue with only plavix. surgery conulted and recommended to continue to monitor H/H and transfuse as needed and to have planned OP surgery in november. started on clear liquid diet. continue to monitor H/h closely q6H and tranfuse <8. CAD: S/p SRIKANTH. cardiology on board, continue with plavix, off of ASA as above. continue ret of the home medication if not CI HTN: Antihypertensives will be on hold for now as she has GI bleed HLD: On statins. DVT prophylaxis: SCD morbidly obese: was counseled. - Time Spent with Patient Total time spent is greater than 50% in coordination of care (as documented) at patient's floor/unit and/or counseling patient: Internal Medicine: Result - Labs CBC & Chem 7: 10/23/18 07:50 10/22/18 19:56 Labs: Short CBC 10/22/18 10/23/18 10/23/18 Range/Units 19:56 00:10 04:03 WBC 11.7 H (4.3-11.1) K/mcL Hgb 9.9 L 9.2 L 9.1 L (11.5-15.4) g/dL Hct 32.1 L 29.6 L 29.4 L (35.3-44.9) % Plt Count 290 (140-400) K/mcL Neutrophils # 7.9 (1.6-8.9) K/mcL 10/23/18 Range/Units 07:50 WBC (4.3-11.1) K/mcL Hgb 8.4 L (11.5-15.4) g/dL Hct 27.1 L (35.3-44.9) % Plt Count (140-400) K/mcL Neutrophils # (1.6-8.9) K/mcL BMP 10/22/18 19:56 Sodium 136 Potassium 4.0 Chloride 100 Carbon Dioxide 31 H BUN 14 Creatinine 0.83 Glucose 109 H Calcium 9.4 - ABG Interpretation ABG results: PT/INR, D-dimer PT 11.9 Seconds (9.4-12.1) 10/22/18 19:56 Consult Discharge Plan - Plan Referrals: Andrew Chen MD [Primary Care Provider] - (1) Colon cancer Qualifiers: Colon location: unspecified part of colon Qualified Code(s): C18.9 - Malignant neoplasm of colon, unspecified
[2018-10-23 12:51] LABS: Hematocrit 29.6 % (35.3-44.9)
[2018-10-23] MEDS: Acetaminophen 325 MG TABLET PO PRN (16:20)
[2018-10-23] MEDS: Nicotine 2 MG GUM BC PRN (17:23)
[2018-10-23] MEDS ORDERED: Melatonin 3 MG TABLET PO PRN (20:25)
[2018-10-23 20:28] LABS: Hematocrit 26.1 % (35.3-44.9); Hemoglobin 8.2 g/dL (11.5-15.4)
[2018-10-24 00:42] LABS: Hemoglobin 8.2 g/dL (11.5-15.4)
[2018-10-24 07:02] LABS: Hematocrit 28.3 % (35.3-44.9); Hemoglobin 8.8 g/dL (11.5-15.4)
[2018-10-24] MEDS: Metoprolol XL (24 HR) Succ 25 MG TAB.ER.24H PO SCH (10:04)
[2018-10-24] MEDS: Loratadine 10 MG TABLET PO SCH (10:04)
[2018-10-24] MEDS: Gabapentin 300 MG CAPSULE PO SCH ×2 (10:04→14:29)
[2018-10-24 13:19] LABS: Hematocrit 25.7 % (35.3-44.9); Hemoglobin 8.3 g/dL (11.5-15.4)
[2018-10-24] MEDS: Acetaminophen 325 MG TABLET PO PRN (14:29)
--- NOTE | 2018-10-24 16:17 | Discharge Summary ---
- NOTES TO OUTPATIENT PROVIDER Notes to Outpatient Provider: follow up with surgery on saturday for preop appointment and to have bloood work drawn follow up with oncology and PCP Orders not resulted at time of discharge: Pending orders 10/22/18 19:56 Type and Screen [BBK] Stat 10/24/18 13:37 Red Blood Cells [BBK] Stat 10/24/18 18:00 Hemoglobin and Hematocrit [HEME] Q6H Date of Encounter: 10/24/18 Time of Encounter: 16:14 - Discharge Diagnosis (1) Rectal bleeding Priority: Primary Status: Acute (2) Colon cancer Priority: Secondary Status: Acute Qualifiers: Colon location: unspecified part of colon Qualified Code(s): C18.9 - Malignant neoplasm of colon, unspecified (3) Acute blood loss anemia Priority: Secondary Status: Acute (4) Morbid obesity with BMI of 40.0-44.9, adult Priority: Secondary Status: Chronic (5) Obstructive sleep apnea Priority: Secondary Status: Chronic (6) Tobacco abuse disorder Priority: Secondary Status: Acute Hospital course: "Isabel Hernandez is a 58 year old woman with hypertension, hyperlipidemia, coronary artery disease who underwent cardiac cath on 10/08 with a SRIKANTH placed to mid LAD and subsequently developed a lower GI bleed and found on colonoscopy dated 10/10 to have an ulcerated, partially obstructing large mass in the mid transverse colon and biopsy result positive for an intramucosal adenocarcinoma. Due to the bleeding, aspirin was discontinued and was recommended she remain on clopidogrel. She is scheduled for hemicolectomy on 11/17 however she presented to the emergency room today stating that she has had 6-7 bloody bowel movements. She denies associated abdominal pain but says that the bleeding has increased as frequently she would have blood on tissue paper per right now she has lonny bright red blood covering the bowl. She has become more lightheaded and fatigued since then. She denies chest pain or shortness of breath as well as increased abdominal pain, nausea, vomiting or diarrhea. In the ER she was seen hemodynamically stable. Lab work revealed a 1 g drop in hemoglobin in the last 24 hours. She is admitted for further evaluation." presented with above presentation and had above ED course. surgery and cardiology were consulted. cardiology recommended to continue plavix as she had a recent stent. as per cardiology " S/p [facility] 10/08/18: PTCA/drug-eluting stent to mid LAD 60% lesion. Discussed and reviewed with Dr. Abad, recs remain unchanged from 2 weeks ago: already off asa; continue plavix until planned Hemicolectomy 11/17/18. CP free. Patient ve rbalized understanding." "Plavix can be stopped 1 week prior to surgery and will carry a moderate risk for stent thrombosis." surgery recommended to continue to monitor H/H. as per surgery, " Patient should remain on her Plavix for as long as possible and moving up the surgery date would be reserved for emergent circumstances only." "The plan for surgical intervention on 11/17/2018 has not changed. " i discussed with the surgical team on 10/24 that the H/H remains above 8 currently however is below her baseline by >1 g baseline hemoglobin is about 10 , they agreed for transfusion as she is scheduled for hemicolectomy on 11/[address] Allen. both surgery and myself spoke to patient that she might need to have more blood transfusions until her surgery she reports that she understands and that is what she was told this by her oncologist also. she is to follow up with surgery on saturday for her preop evaluation and is to vae cbc repeated at that time. she has had no further episodes of hematochezia since admission. she understands to go to the nearest ED or call 911 if she develops melena or further episodes of hematochezia, dizziness or syncope. she was transfused one unit of PRBC on 10/24,. follow CBC on 10/27. she understands that she is at risk of further bleeding episodes as she is on plavix for recent stent. Discharge discussed with: patient, financial planning consultant Time spent discussing smoking cessation with patient: more than 10 minutes - Time Spent with Patient Total time spent providing and/or coordinating discharge services: Time spent: Greater than 30 minutes (35) - Discharge Medications Prescriptions: New Nicotine Gum [Nicorette gum] 4 mg BC Q2H PRN 30 Days gum PRN Reason: Nicotine Cravings Continued Omeprazole [PriLOSEC] 20 mg PO QAM Pravastatin Sodium [Pravachol] 40 mg PO QPM Magnesium Oxide [Magnesium] 400 mg PO QPM PRN PRN Reason: LOW MAGNESIUM Escitalopram [Lexapro] 10 mg PO QPM Metoprolol Succinate [Toprol Xl] 25 mg PO QAM Loperamide [Imodium] 2 mg PO QID PRN PRN Reason: LOOSE STOOLS Gabapentin 600 mg PO TID Clopidogrel [Plavix] 75 mg PO DAILY #30 tablet Ferrous Sulfate 325 mg PO BIDWM #60 tablet Losartan/Hydrochlorothiazide [Losartan-Hctz 100-25 mg Tab] 1 each PO DAILY Tramadol HCl [Ultram] 50 mg PO TID PRN PRN Reason: Pain Dicyclomine [Bentyl] 10 mg PO TID Loratadine [Claritin] 10 mg PO DAILY Discontinued Nitrofurantoin (BID) [Macrobid] 100 mg PO Q12H Home Medications: Magnesium Oxide [Magnesium] 400 mg PO QPM PRN 02/04/15 [History] Omeprazole [PriLOSEC] 20 mg PO QAM 02/04/15 [History] Pravastatin Sodium [Pravachol] 40 mg PO QPM 02/04/15 [History] Escitalopram [Lexapro] 10 mg PO QPM 01/03/18 [History] Metoprolol Succinate [Toprol Xl] 25 mg PO QAM 01/03/18 [History] Gabapentin 600 mg PO TID 10/08/18 [History] Loperamide [Imodium] 2 mg PO QID PRN 10/08/18 [History] Clopidogrel [Plavix] 75 mg PO DAILY #30 tablet 10/09/18 [Rx] Ferrous Sulfate 325 mg PO BIDWM #60 tablet 10/11/18 [Rx] Losartan/Hydrochlorothiazide [Losartan-Hctz 100-25 mg Tab] 1 each PO DAILY 10/21/18 [History] Tramadol HCl [Ultram] 50 mg PO TID PRN 10/21/18 [History] Dicyclomine [Bentyl] 10 mg PO TID 10/22/18 [History] Loratadine [Claritin] 10 mg PO DAILY 10/22/18 [History] Nicotine Gum [Nicorette gum] 4 mg BC Q2H PRN 30 Days gum 10/24/18 [Rx] Allergies/Adverse Reactions: Allergy/AdvReac Type Severity Reaction Status Date / Time Penicillins Allergy Mild Rash/HIVES/SCRATCHY Verified 10/21/18 13:51 THROAT pregabalin [From Lyrica] AdvReac Mild FORGETFULL/ Verified 10/21/18 13:51 LETHARGIC latex AdvReac Unknown RASH/BLISTE Verified 10/21/18 13:51 RS Date of admission: 10/22/18 21:46 Primary care physician: Andrew Chen MD Consults: 10/22/18 22:40 Consult to Surgery [CONS] Routine Consulting Provider: Acute Care Surgery Reason for Consult: 58 year old woman known to have colon cancer and scheduled for surgery in 3 weeks presenting with continued lower GI bleeding Call Completed: Yes 10/22/18 23:32 Consult to Cardiology [CONS] Routine Comment: Consulting Provider: Cardiology [place] Reason for Consult: 58 year old woman who had LHC with SRIKANTH placed to mid LAD on 10/08 and has LGIB from colonic malignancy. Aspirin stopped but now ongoing bleeding on clopidogrel alone. Call Completed: No 10/22/18 23:41 Consult to Nutrition [CONS] Routine Comment: Consulting Provider: NUTRITION Reason for Dietary Consult: MST Score - Constitutional Vitals: Temp Pulse Resp BP Pulse Ox 98.0 F 95 14 130/71 91 10/24/18 14:15 10/24/18 14:15 10/24/18 14:15 10/24/18 14:15 10/24/18 14:15 Exam: Vitals: Reviewed General: obese, NAD, speaks in full sentences Skin: Warm and dry. HEENT: Moist mucous membranes. + conjunctivae pallor. Neck: No lymphadenopathy. No JVD. No carotid bruits. No palpable thyroid. Chest: Normal thoracic expansion. Normal breath sounds. Clear to auscultation. Heart: distant heart sounds secondary to body habitus. Normal S1 & S2; rhythmic. No rubs or murmurs. Abdomen: Mildly distended, soft and minimally tender to palpation in the mid upper abdomen. No peritoneal reaction. Extremities: No clubbing, cyanosis or edema. No calf tenderness. Normal distal pulses. Neurological: Awake, alert and oriented to person, place and time. No focal defi cits. Psych: Affect appropriate. - Patient Status Disposition: Home, Self-Care Condition: Fair Functional capacity at discharge: independent ambulation Overall status at discharge: patient is progressing back to baseline - Discharge Instructions Follow Up With: Andrew Chen MD [Primary Care Provider] - - Diet and Activity Activity: increase activity as tolerated Diet: advance to your usual diet, low salt diet
[2018-10-24] MEDS: Nicotine 2 MG GUM BC PRN (16:29)
--- NOTE | 2018-10-24 16:58 | Physician Discharge Referral ---
Home Health/Hosp Referral Info Transfer to: Home Health Provider in Charge Post Discharge: PCP - Diagnosis (1) Rectal bleeding Status: Acute (2) Colon cancer Status: Acute (3) Acute blood loss anemia Status: Acute (4) Morbid obesity with BMI of 40.0-44.9, adult Status: Chronic (5) Obstructive sleep apnea Status: Chronic (6) Tobacco abuse disorder Status: Acute - Respiratory Orders Smoking Cessation: Smoking cessation has been advised. For more information, call the [place] Tobacco Quit Line at 0-505-HOJB-NOW. - Services Needed Following services are medically necessary services: Nursing, Home Health Aide - Transfer Medications Prescriptions: Nicotine Gum [Nicorette gum] 4 mg BC Q2H PRN 30 Days gum PRN Reason: Nicotine Cravings Home Medications: Magnesium Oxide [Magnesium] 400 mg PO QPM PRN 02/04/15 [History] Omeprazole [PriLOSEC] 20 mg PO QAM 02/04/15 [History] Pravastatin Sodium [Pravachol] 40 mg PO QPM 02/04/15 [History] Escitalopram [Lexapro] 10 mg PO QPM 01/03/18 [History] Metoprolol Succinate [Toprol Xl] 25 mg PO QAM 01/03/18 [History] Gabapentin 600 mg PO TID 10/08/18 [History] Loperamide [Imodium] 2 mg PO QID PRN 10/08/18 [History] Clopidogrel [Plavix] 75 mg PO DAILY #30 tablet 10/09/18 [Rx] Ferrous Sulfate 325 mg PO BIDWM #60 tablet 10/11/18 [Rx] Losartan/Hydrochlorothiazide [Losartan-Hctz 100-25 mg Tab] 1 each PO DAILY 10/21/18 [History] Tramadol HCl [Ultram] 50 mg PO TID PRN 10/21/18 [History] Dicyclomine [Bentyl] 10 mg PO TID 10/22/18 [History] Loratadine [Claritin] 10 mg PO DAILY 10/22/18 [History] Nicotine Gum [Nicorette gum] 4 mg BC Q2H PRN 30 Days gum 10/24/18 [Rx] Allergies/Adverse Reactions: Allergy/AdvReac Type Severity Reaction Status Date / Time Penicillins Allergy Mild Rash/HIVES/SCRATCHY Verified 10/21/18 13:51 THROAT pregabalin [From Lyrica] AdvReac Mild FORGETFULL/ Verified 10/21/18 13:51 LETHARGIC latex AdvReac Unknown RASH/BLISTE Verified 10/21/18 13:51 RS Certification: Further, I certify that my clinical findings support that this patient is homebound (i.e. absences from home require considerable and taxing effort and are for medical reasons or cheondoism services or infrequently or short duration when for other reasons) because: Homebound Reason: Patient requires assistance of a person or device to safely leave home Attestation: My signature below is to certify that this patient is under my care and that I, or nurse practitioner, or a physician's talent acquisition assistant working with me, has a [id number] encounter with this patient.
[2018-10-24] MEDS ORDERED: 0.9 % Sodium Chloride Mini Bag 100 ML ONE (17:01)
[2018-10-24] MEDS ORDERED: 0.9 % Sodium Chloride 250 ML ONE (17:01)
[2018-10-24 19:48] VITALS: BP 111/76
== END 2018-10-24 19:40 | disposition home or self-care (01) ==
LOC: EMEROOARM 19:03 → 3ANU 19:03 → EMEROO 19:03 → 3ANU 22:26
PROVIDERS: ADMIT Internal Medicine; ATTEND Internal Medicine

== ENCOUNTER 2018-11-17 10:36 | Inpatient (IN) ==
[2018-11-17] MEDS ORDERED: Clindamycin 900 MG/50 ML 900 MG/50 ML IV.SOLN IVPB ONE (11:08)
[2018-11-17] MEDS ORDERED: Albuterol 2.5 MG/3 ML NEBULIZER IH ONE (11:08)
[2018-11-17] MEDS ORDERED: Famotidine 20 MG/2 ML VIAL IVP ONE (11:29)
[2018-11-17] MEDS ORDERED: *HR* Promethazine 25 MG/ML VIAL IVP PRN (11:30)
[2018-11-17] MEDS ORDERED: Pregabalin 75 MG CAPSULE PO ONE (11:30)
[2018-11-17] MEDS ORDERED: *HR* HYDROmorphone (PF) 1 MG/ML SYRINGE IVP PRN (11:30)
[2018-11-17] MEDS ORDERED: *HR* Labetalol 20 MG/4 ML SYRINGE IVP PRN (11:30)
[2018-11-17] MEDS ORDERED: Acetaminophen IV 1,000 MG/100 ML INFUS..BTL IVPB ONE (11:30)
[2018-11-17] MEDS ORDERED: Gabapentin 300 MG CAPSULE PO ONE (11:34)
[2018-11-17] MEDS: Ringers Solution, Lactated 1,000 ML IVC SCH ×2 (11:37→17:50)
--- NOTE | 2018-11-17 11:37 | Anesthesia Evaluation PreOp ---
Date of Encounter: 11/17/18 Time of Encounter: 11:33 - Past History Planned Operation: Extended R-colectomy re: malignant Neoplasm Cardiac History: HTN, Hyperlipidemia, Cardiac Stent (SRIKANTH placed at LAD 10/08/2018. Plavix continued for surgery - Last dose 11/16/2018. Last ASA 5 weeks ago at hospital discharge.), Other Pulmonary History: Smoker (upto 1ppd x 40yrs - last cigarette 7am on the way to hospital.), COPD (2L/min - Noc), MARLEE Dx (NOn-compliant [x 2 years] w/ CPAP use [13mm Hg]) FANCY PACKER History: Other (Lumbar disc dz) Other Medical History: Renal (kidney stones), GERD, Other (GIB "hemorrhage from Colon" 10/24/2018) Anesthesia History: No Prior Anesthetic Complications, Past Anesthesia (Hyster, alba, r-TKR, Fistula repair, SCS implant/revision, L-patella revision, L- shoulder, etc..) Alcohol Use: none Drug use: none Medications and Allergies Magnesium Oxide [Magnesium] 400 mg PO QPM PRN 02/04/15 [History] Omeprazole [PriLOSEC] 20 mg PO QAM 02/04/15 [History] Pravastatin Sodium [Pravachol] 40 mg PO QPM 02/04/15 [History] Escitalopram [Lexapro] 10 mg PO QPM 01/03/18 [History] Metoprolol Succinate [Toprol Xl] 25 mg PO QAM 01/03/18 [History] Gabapentin 600 mg PO TID 10/08/18 [History] Loperamide [Imodium] 2 mg PO QID PRN 10/08/18 [History] Clopidogrel [Plavix] 75 mg PO DAILY #30 tablet 10/09/18 [Rx] Ferrous Sulfate 325 mg PO BIDWM #60 tablet 10/11/18 [Rx] Losartan/Hydrochlorothiazide [Losartan-Hctz 100-25 mg Tab] 1 each PO DAILY 10/21/18 [History] Tramadol HCl [Ultram] 50 mg PO TID PRN 10/21/18 [History] Dicyclomine [Bentyl] 10 mg PO TID 10/22/18 [History] Loratadine [Claritin] 10 mg PO DAILY 10/22/18 [History] Nicotine Gum [Nicorette gum] 4 mg BC Q2H PRN 30 Days gum 10/24/18 [Rx] Allergy/AdvReac Type Severity Reaction Status Date / Time Penicillins Allergy Mild Rash/HIVES/SCRATCHY Verified 10/21/18 13:51 THROAT pregabalin [From Lyrica] AdvReac Mild FORGETFULL/ Verified 10/21/18 13:51 LETHARGIC latex AdvReac Unknown RASH/BLISTE Verified 10/21/18 13:51 RS - Meds/Allergy Pre-op Review Medications Reviewed: Yes Allergies Reviewed: Yes Beta Blockers on Current Med List: Yes (Metoprolol) If Beta Blockers taken, Date/Time (Last Dose taken): 11/17/2018 @ 0630 Anesthesia Results - Labs Laboratory Tests 10/09/18 10/22/18 10/27/18 09:50 19:56 10:55 WBC 8.8 RBC 3.97 Hct 33.9 L Plt Count 294 Sodium 136 Potassium Chloride 100 Carbon Dioxide 31 H BUN 14 Creatinine Est GFR (Non-Af Amer) Glucose 109 H Stool Occult Blood Positive A 10/27/18 10:55 WBC RBC Hct Plt Count Sodium Potassium 4.2 Chloride Carbon Dioxide BUN Creatinine 0.83 Est GFR (Non-Af Amer) > 60 Glucose Stool Occult Blood - Imaging EKG: image reviewed (84bpm - Sinus rhythm Borderline left axis deviation Abnormal R-wave progression, early transition Nonspecific repol abnormality, lateral leads Baseline wander Electronically Signed On 10-23-2018 8:16:02 EDT by Glory Swartz) Additional studies: Cardiac Cath 10/08/2018 w/ successful placement SRIKANTH Lesion Findings/Interventions * Left Main Coronary Artery There is a 25% stenosis in the Proximal LMCA. There is a 25% stenosis in the Mid LMCA. There is a 25% stenosis in the Distal LMCA. * Left Anterior Descending There is a 12 mm long, 60% stenosis in the Mid LAD. The lesion has a TRACEY flow of 3 and has no thrombus present. An intervention was performed on the Mid LAD with a final stenosis of 0%. There were no lesion complications. The final TRACEY flow was 3. There is a 50% stenosis in the 1st Diagonal. * Circumflex The Circumflex is angiographically free of disease. The 1st Marginal is angiographically free of disease. * Right Coronary Artery There is a 20% stenosis in the Mid RCA. Anesthesia Exam O2 Sat Height 1.57 m Weight 99.337 kg O2 Sat by Pulse Oximetry 96 Vital Signs Temp Pulse Resp BP Pulse Ox 98.5 F 74 18 105/55 96 11/17/18 11:05 11/17/18 11:05 11/17/18 11:05 11/17/18 11:05 11/17/18 11:05 Height: 5'2" Weight: 220# BMI = 40 NPO (# of Hours): Mnoc - HEENT Pupil (Motor): Pupils equal, EOMI Mallampati: II Teeth: Normal, Edentulous Denture Type: Upper: Complete, Lower: Complete Oral Opening: Greater than 3 - FANCY PACKER LOC: Oriented FANCY PACKER Motor: Normal RUE, Normal LUE, Normal RLE, Normal LLE, Normal Face - Cardiac Rhythm: Regular Murmur: None - Pulmonary Breath Sounds: bilateral Clear Respiratory Effort: Symmetrical Anesthesia Assess/Plan ASA Score: 4 (CAD w/ SRIKANTH placed 5 weeks ago. HTN, Chol, COPD, MO/BMI = 40, Anxiety/Depression) Anes Supervising Prov Stmt: Pt seen/evaluated, R&B discussed, questions answered and consent obtained. Leila Nolan MD
--- NOTE | 2018-11-17 12:44 | History & Physical Report ---
Date of Encounter: 11/17/18 Time of Encounter: 12:44 24 Hour HP Update - Instructions Instructions: If the History and Physical is less than 30 days old and was completed prior to A.M. admission and or procedure and has NOT been updated on calendar day of procedure please complete this update prior to performing procedure. - Update Patient reports changes in Medical Condition: No Changes in examination, assessment, or condition: No Changes in Medication: No Surgery Remains Indicated: Yes Consent for Planned Operative Procedure(s) Verified: Yes - Pre-Operative Checklist Prophylactic Antibiotic Ordered: Yes Home Medications Include Beta Anayeli: Yes Is VTE Prophylaxis Indicated?: Yes
[2018-11-17] MEDS ORDERED: Ondansetron 4 MG/2 ML VIAL ONE (12:53)
[2018-11-17] MEDS ORDERED: Lidocaine -MPF 2% 2 ML VIAL ONE ×2 (12:53→14:25)
[2018-11-17] MEDS ORDERED: Lidocaine -MPF 4% 5 ML AMPUL ONE (12:53)
[2018-11-17] MEDS ORDERED: *HR* Propofol 200 MG/20 ML VIAL IVP ONE (12:53)
[2018-11-17] MEDS ORDERED: *HR* Midazolam HCl 2 MG/2 ML VIAL ONE (12:53)
[2018-11-17] MEDS ORDERED: Dexamethasone 4 MG/ML VIAL ONE (12:53)
[2018-11-17] MEDS ORDERED: *HR* Rocuronium Bromide 50 MG/5 ML VIAL ONE (12:53)
[2018-11-17] MEDS ORDERED: *HR* FentaNYL (PF) 100 MCG/2 ML VIAL ONE ×2 (12:53→15:04)
[2018-11-17] MEDS ORDERED: *HR* PHENYLEPHRINE 1,000 MCG/10 ML SYRINGE IVP ONE (13:25)
[2018-11-17] MEDS ORDERED: *HR* Magnesium Sulfate 1 GM/2 ML VIAL ONE ×2 (13:41→15:20)
[2018-11-17] MEDS ORDERED: *HR* Phenylephrine 10 MG/ML VIAL ONE (14:06)
[2018-11-17] MEDS ORDERED: MetroNIDAZOLE 500 MG/100 ML 500 MG/100 ML BAG IVPB ONE ×2 (14:30)
--- NOTE | 2018-11-17 16:26 | Operative Note ---
Date of procedure: 11/17/18 Pre-op diagnosis: transverse colon cancer Post-op diagnosis: same Procedure: Laparoscopic converted to open extended right colectomy Complications: none immediate Anesthesia: GETA Surgeon: Elaine Allen Was there an esl instructional assistant present: Yes Gas And Oil Servicer: Veronica Espinal Estimated blood loss (cc): 100 Urine output (cc): 250 Specimen: terminal ileum, right colon, 2/3 transverse colon Condition: stable Disposition: PACU Procedure in Detail: The patient was brought into the operating suite and placed supine on the operating table. Sign in was performed and everyone was in agreement. Anesthesia was induced and patient was endotracheally intubated by anesthesia without incident. Frank catheter was placed by circulating nurse. An NG tube was placed by anesthesia. Bilateral arms were tucked at her side. The abdomen was prepped and draped in the usual sterile fashion. Timeout was performed again everyone was in agreement. Incision in the left upper quadrant through the skin and the subcutaneous tissues made with an 11 blade. A Veress needle was placed in this and a water drop test confirmed placement and the abdomen was insufflated. We then entered the abdomen through the left upper quadrant incision with a 5 mm XL trocar on a 0 degree laparoscope. The area under entry was visualized there was no bleeding and no apparent bowel injury. There were significant adhesions of the small bowel to the infraumbilical midline. A 8 mm robotic port was placed in left lateral abdominal wall under direct visualization after first incising the skin with an 11 blade. Using laparoscopic scissors adhesions and small bowel were taken down sharply off the abdominal wall. Eventually an area was reached where the small bowel was so densely adherent to the anterior abdominal wall the decision was made to convert to open. A midline incision through the skin into the subcutaneous tissue was made with a 15 blade down around the left of the umbilicus. Dissection through the subcutaneous tissue to the intra-abdominal fascia was made with the Bovie. Marcos's are placed on either side of the fascia for retraction and we entered the abdomen in the midline with the Bovie. The fascial incision was elongated proximally and distally with the Bovie until we encountered the area with the adherent small bowel. Using Metzenbaum scissors lysis of adhesions was done for over an hour. A loop of small bowel was exquisitely and densely adherent to the fascia and a full-thickness enterotomy occurred which given the nature of the adhesions was not an unexpected outcome. Babcocks are placed on either side of the small bowel to keep any succus from spilling into the abdomen. The small bowel continued to be dissected off the anterior abdominal wall with Metzenbaum scissors and gentle blunt dissection. Bookwalter was placed for exposure and retraction. The small bowel was run from the ligament of Treitz down to the terminal ileum and the small bowel enterotomy and an area of significant small bowel to small bowel adhesions was at the terminal ileum just before the ileocecal valve and was decided to include this area in the resection. An opening in the mesentery proximal to the enterotomy was made with the Bovie. Using a linear HILARIO-75 stapler blue load the small bowel was transected. The right colon was taken off the abdominal wall beginning at the white line of Toldt and extending in a proximal distal direction with the Bovie and gentle blunt dissection. The gastrocolic ligament was divided from the hepatic flexure to the distal transverse colon with the impact LigaSure. The duodenum was identified and kept out of harm's way. The hepatic flexure was taken down with gentle blunt dissection and the Bovie. Using the impact LigaSure the mesentery of the small bowel coming across the ileocolic vessels, right colon mesentary (right colic vessels) and transverse colon mesentary (middle colic vessels) was accomplished. An opening in the distal transverse colon mesentery was made with the Bovie and the distal transverse colon was transected with a linear HILARIO-75 stapler blue load. The specimen was placed off to the back table for pathology. The abdomen was irrigated with sterile saline. The small bowel was run from the ligament of Treitz down to the staple line of the terminal ileum. A [id number] stapled ileocolic anastomosis was created first with a linear HILARIO- 75 stapler blue load then a TX 60 stapler. 3-0 silk interrupted stitch was placed as a crotch stitch. The closed common channel staple line was reinforced with 3-0 silk [id number]-gn-espht stitches. The abdomen was irrigated with sterile saline. A 19-Occitan Josue drain was placed into the pelvis through the right lower quadrant skin and abdominal wall and secured to the skin with a 2-0 silk stitch. Cerulean's are placed on either side of the fascia for retraction. The midline fascia was reapproximated with 2 separate #1 non-looped PDS running stitches meeting in the middle. The subcutaneous tissue was copiously irrigated with sterile saline. The subcutaneous tissue was reapproximated with 3-0 Vicryl stitches. Skin was closed with lily. The left upper quadrant left abdominal trocar sites were closed at the skin was lily. All lap and instrument counts are correct at the end of the case. Patient tolerated the procedure well. She was awoken by anesthesia and extubated in the OR without incident. NG tube was removed by anesthesia. Frank catheter remained with the patient after surgery. She was taken to PACU in stable condition.
[2018-11-17 17:15] LABS: Basophils % 0.2 %; Eosinophils % 0.1 %; Hematocrit 31.9 % (35.3-44.9); Hemoglobin 9.8 g/dL (11.5-15.4); Immature Granulocytes % 0.4 % (0-4); Lymphocytes % 7.7 %; Mean Corpuscular HGB Conc 30.7 g/dL (31.6-35.5); Mean Corpuscular Hemoglobin 26.6 pg (28.0-33.3); Mean Corpuscular Volume 86.7 fL (83.0-100.0); Mean Platelet Volume 10.7 fL (9.4-12.4); Monocytes # 0.4 K/mcL (0.0-1.3); Monocytes % 3.1 %; Neutrophils # 11.1 K/mcL (1.6-8.9); Platelet Count 362 K/mcL (140-400); Red Blood Count 3.68 M/mcL (3.82-4.97); Red Cell Distribution Width 15.7 % (11.5-14.5); Segmented Neutrophils % 88.5 %; White Blood Count 12.5 K/mcL (4.3-11.1)
--- NOTE | 2018-11-17 17:58 | Anesthesia Evaluation Post Op ---
Date of Encounter: 11/17/18 Time of Encounter: 17:58 - Vital Signs Vital Signs: Last Vital Signs Temp 97.9 F 11/17/18 17:56 Pulse 73 11/17/18 17:56 Resp 12 11/17/18 17:56 BP 89/46 11/17/18 17:56 Pulse Ox 94 11/17/18 17:56 - Lungs Lungs: Clear Ascult./Percussion - Airway Airway: Non-obstructed - Cardiovascular Regular Rate - Mental Status Mental Status: Alert & Oriented, Answers Appropriately - Pain Pain Scale: 2 - Nausea Vomiting Nausea Vomiting: Not Present - Hydration Hydration: NPO, Frank catheter - Discharge PostOp Status: Transfer Patient to floor
[2018-11-17 17:59] LABS: Calcium 8.3 mg/dL (8.6-10.3); Potassium 3.8 mEq/L (3.5-5.1)
[2018-11-17] MEDS ORDERED: *HR* Metoprolol 5 MG/5 ML VIAL IVP PRN (19:07)
[2018-11-17] MEDS ORDERED: Ondansetron 4 MG/2 ML VIAL IVP PRN (19:07)
[2018-11-17] MEDS ORDERED: *HR* OxyCODONE Oral Soln 5 MG/5 ML UD.LIQ PO PRN (19:07)
[2018-11-17] MEDS ORDERED: Naloxone 0.4 MG/ML INJ IVP PRN (19:07)
[2018-11-17] MEDS: 0.9 % Sodium Chloride 1,000 ML IVC SCH (20:16)
[2018-11-17] MEDS: Gabapentin 300 MG CAPSULE PO SCH (20:16)
[2018-11-17] MEDS: Acetaminophen IV 1,000 MG/100 ML INFUS..BTL IVPB SCH (21:15)
[2018-11-17] MEDS: Ipratropium/Albuterol Neb 3 ML IH SCH (23:13)
[2018-11-17] MEDS: MetroNIDAZOLE 500 MG/100 ML 500 MG/100 ML BAG IVPB SCH (23:37)
[2018-11-18] MEDS: Acetaminophen IV 1,000 MG/100 ML INFUS..BTL IVPB SCH ×4 (02:07→17:56)
[2018-11-18] MEDS: Ipratropium/Albuterol Neb 3 ML IH SCH ×4 (03:13→22:27)
[2018-11-18] MEDS: *HR* OxyCODONE Oral Soln 5 MG/5 ML UD.LIQ PO PRN ×2 (06:17→15:29)
[2018-11-18 06:50] LABS: Hematocrit 27.4 % (35.3-44.9); Hemoglobin 8.6 g/dL (11.5-15.4); Immature Granulocytes % 0.3 % (0-4); Lymphocytes # 0.6 K/mcL (0.6-4.6); Lymphocytes % 8.5 %; Mean Corpuscular HGB Conc 31.4 g/dL (31.6-35.5); Mean Corpuscular Hemoglobin 26.6 pg (28.0-33.3); Mean Corpuscular Volume 84.8 fL (83.0-100.0); Mean Platelet Volume 11.1 fL (9.4-12.4); Monocytes # 0.4 K/mcL (0.0-1.3); Neutrophils # 5.7 K/mcL (1.6-8.9); Platelet Count 248 K/mcL (140-400); Red Blood Count 3.23 M/mcL (3.82-4.97); Red Cell Distribution Width 15.7 % (11.5-14.5); Segmented Neutrophils % 85.2 %; White Blood Count 6.7 K/mcL (4.3-11.1)
[2018-11-18 07:03] LABS: Magnesium 2.1 mg/dL (1.6-2.6); Phosphorous 5.1 mg/dL (2.7-4.5); Potassium 4.2 mEq/L (3.5-5.1)
[2018-11-18] MEDS ORDERED: 0.9 % Sodium Chloride 500 ML IVC ONE ×2 (07:37→11:09)
[2018-11-18] MEDS: Pantoprazole 40 MG VIAL IVP SCH (07:56)
[2018-11-18] MEDS: MetroNIDAZOLE 500 MG/100 ML 500 MG/100 ML BAG IVPB SCH ×2 (08:58→16:25)
[2018-11-18] MEDS: 0.9 % Sodium Chloride 1,000 ML IVC SCH ×2 (08:59→21:15)
[2018-11-18] MEDS ORDERED: 0.9 % Sodium Chloride 250 ML ONE (09:22)
[2018-11-18] MEDS: Gabapentin 300 MG CAPSULE PO SCH ×3 (09:23→21:04)
[2018-11-18] MEDS: Metoprolol XL (24 HR) Succ 25 MG TAB.ER.24H PO SCH (10:12)
--- NOTE | 2018-11-18 14:40 | General Surgery Progress Note ---
Date of Encounter: 11/18/18 Time of Encounter: 14:37 - Assessment and Plan (1) Presence of drug-eluting stent in anterior descending branch of left coronary artery Current Visit: Yes Status: Chronic continue plavix holding aspirin per cardiology monitor Hb, transfuse as needed (2) Colon cancer Current Visit: No Status: Chronic pod 1 lap to open extended right colectomy, lysis of adhesions ok water, ice, pills prn pain control keep HOB 30 degrees due to reflux bolus 1 L and 1 unit PRBC today, uop and bp improved continue santiago for accurate I/Os binder for comfort OOB to chair continue antibiotics gi/dvt prophylaxis Qualifiers: Colon location: transverse Qualified Code(s): C18.4 - Malignant neoplasm of transverse colon (3) Hypotension Current Visit: Yes Status: Acute hold home BP meds, monitor bolus 1 L NS today and transfuse 1 unit PRBC Qualifiers: Hypotension type: unspecified hypotension type Qualified Code(s): I95.9 - Hypotension, unspecified (4) MANDIE (acute kidney injury) Current Visit: Yes Status: Acute continue santiago monitor bolus IVF, transfused 1 unit PRBC (5) GERD (gastroesophageal reflux disease) Current Visit: Yes Status: Chronic cont omeprazole start po carafate Qualifiers: Esophagitis presence: esophagitis presence not specified Qualified Code(s): K21.9 - Gastro-esophageal reflux disease without esophagitis Subjective Patient reports: still having pain, voiding w/o difficulty (santiago), no flatus, no bowel movement, afebrile, other (belching/ complain of heartburn and reflux) Objective Vital Signs - Last 8 Hours Temp Pulse Resp BP Pulse Ox 11/18/18 13:04 98.1 F 81 18 106/68 94 11/18/18 10:50 16 96 11/18/18 10:25 97.7 F 79 18 96/64 11/18/18 10:10 97.5 F L 80 17 98/64 95 11/18/18 09:05 98.2 F 80 17 94/54 95 11/18/18 06:49 97.9 F 81 16 103/70 94 Intake and Output 11/17/18 11/18/18 11/18/18 23:59 07:59 15:59 Intake Total 1100 / 1150 400 / 702 302 / 702 Output Total 610 / 610 540 / 760 220 / 760 Balance 490 / 540 -140 / -58 82 / -58 Intake: IV Fluids 1100 / 1150 400 / 400 Lactated Ringers 1,000 ML @ 25 1000 / 1000 mls/hr IVC .Q24H MICAELA Rx#: [id number] Ofirmev 1,000 mg/100 ml 1,000 100 / 100 100 / 100 mg In 100 ml @ 400 mls/hr IVPB Q6HR MICAELA Rx#:[id number] Cipro Premix 400 MG/200 ML 400 200 / 200 mg In 200 ml @ 200 mls/hr IVPB Q12HR MICAELA Rx#:[id number] Flagyl Premix 500 MG/100 ML 500 100 / 100 mg In 100 ml @ 100 mls/hr IVPB Q8HR MICAELA Rx#:[id number] Blood Product 302 / 302 Rbcs Leuko Poor As-1 Unit 302 / 302 [id number] Output: Urine 200 / 200 Estimated Blood Loss 100 / 100 Urine Amount (Catheter) 250 / 250 Catheter 300 / 450 150 / 450 Wound Drainage 260 / 260 40 / 110 70 / 110 Right Lower Quadrant 80 / 80 40 / 110 70 / 110 Other: Meal NPO Blood Glucose* 193 125 - General physical appearance well developed, well nourished, no distress, obese - Eyes PERRL, normal ocular movement - ENT normal mucosa, CN 2-12 grossly intact - Neck Neck exam: trachea midline - Respiratory normal expansion, normal respiratory effort, clear to auscultation - Cardiovascular Cardiovascular exam: Present: RRR - Abdomen Abdomen: Present: bowel sounds present (faint), soft, tender (appropriate post op tenderness). Absent: rebound, rigid Additional Comments: Bale drain - serosang - Incision Incision: Present: clean and dry, intact - Integumentary no rash - Neurologic CN 2-12 grossly intact - Musculoskeletal normal posture - Psychiatric oriented to time, oriented to person, oriented to place, speech is normal, omid ry intact - Labs 11/18/18 06:11 11/18/18 06:11 Diabetes panel 11/17/18 11/18/18 Range/Units 16:54 06:11 Sodium 134 L 134 L (136-145) mEq/L Potassium 3.8 4.2 (3.5-5.1) mEq/L Chloride 101 101 (98-107) mEq/L Carbon Dioxide 22 L 23 (23-29) mEq/L BUN 12 15 (8-23) mg/dL Creatinine 1.26 H 1.48 H (0.60-1.20) mg/dL Glucose 174 H 183 H (70-105) mg/dL Calcium 8.3 L 8.0 L (8.6-10.3) mg/dL Calcium panel 11/17/18 11/18/18 Range/Units 16:54 06:11 Calcium 8.3 L 8.0 L (8.6-10.3) mg/dL Phosphorus 5.1 H (2.7-4.5) mg/dL Pituitary panel 11/17/18 11/18/18 Range/Units 16:54 06:11 Sodium 134 L 134 L (136-145) mEq/L Potassium 3.8 4.2 (3.5-5.1) mEq/L Chloride 101 101 (98-107) mEq/L Carbon Dioxide 22 L 23 (23-29) mEq/L BUN 12 15 (8-23) mg/dL Creatinine 1.26 H 1.48 H (0.60-1.20) mg/dL Glucose 174 H 183 H (70-105) mg/dL Calcium 8.3 L 8.0 L (8.6-10.3) mg/dL Adrenal panel 11/17/18 11/18/18 Range/Units 16:54 06:11 Sodium 134 L 134 L (136-145) mEq/L Potassium 3.8 4.2 (3.5-5.1) mEq/L Chloride 101 101 (98-107) mEq/L Carbon Dioxide 22 L 23 (23-29) mEq/L BUN 12 15 (8-23) mg/dL Creatinine 1.26 H 1.48 H (0.60-1.20) mg/dL Glucose 174 H 183 H (70-105) mg/dL Calcium 8.3 L 8.0 L (8.6-10.3) mg/dL Consult Discharge Plan - Plan Referrals: Elaine Allen MD [Partnered Physician] - 12/10/18 9:05 am Daniel Kirk MD [Partnered Physician] - 12/08/18 10:00 am Andrew Chen MD [Partnered Physician] -
[2018-11-18] MEDS: *HR* Promethazine 25 MG/ML VIAL IVP PRN (20:59)
[2018-11-19] MEDS: MetroNIDAZOLE 500 MG/100 ML 500 MG/100 ML BAG IVPB SCH ×3 (00:26→16:41)
[2018-11-19] MEDS: Acetaminophen IV 1,000 MG/100 ML INFUS..BTL IVPB SCH ×4 (00:28→18:34)
[2018-11-19 01:45] LABS: Basophils % 0.1 %; Hematocrit 26.9 % (35.3-44.9); Hemoglobin 8.5 g/dL (11.5-15.4); Immature Granulocytes % 0.5 % (0-4); Lymphocytes # 1.2 K/mcL (0.6-4.6); Lymphocytes % 14.8 %; Mean Corpuscular HGB Conc 31.6 g/dL (31.6-35.5); Mean Corpuscular Hemoglobin 27.4 pg (28.0-33.3); Mean Corpuscular Volume 86.8 fL (83.0-100.0); Mean Platelet Volume 10.9 fL (9.4-12.4); Monocytes # 0.5 K/mcL (0.0-1.3); Monocytes % 6.5 %; Neutrophils # 6.3 K/mcL (1.6-8.9); Platelet Count 219 K/mcL (140-400); Red Cell Distribution Width 15.5 % (11.5-14.5); Segmented Neutrophils % 78.1 %
[2018-11-19 02:05] LABS: BUN/Creatinine Ratio 10 (6-26); Blood Urea Nitrogen 10 mg/dL (8-23); Calcium 7.7 mg/dL (8.6-10.3); Carbon Dioxide 23 mEq/L (23-29); Chloride 106 mEq/L (98-107); Glucose 142 mg/dL (70-105); Osmolality,Calculated 285 (280-300); Phosphorous 2.6 mg/dL (2.7-4.5); Potassium 3.7 mEq/L (3.5-5.1); Sodium 137 mEq/L (136-145); eGFR For African Americans > 60 (> 60); eGFR For Non-African Americans 59 (> 60)
[2018-11-19] MEDS: Ipratropium/Albuterol Neb 3 ML IH SCH ×4 (03:38→22:26)
[2018-11-19] MEDS: 0.9 % Sodium Chloride 1,000 ML IVC SCH ×5 (05:42→08:43)
[2018-11-19] MEDS ORDERED: Chloraseptic Spray 177 ML BOTTLE MM PRN (08:08)
[2018-11-19] MEDS ORDERED: Lidocaine Viscous Oral Soln 15 ML SOLUTION MM PRN (08:08)
[2018-11-19] MEDS: Pantoprazole 40 MG VIAL IVP SCH (08:18)
[2018-11-19] MEDS: Metoprolol XL (24 HR) Succ 25 MG TAB.ER.24H PO SCH (11:11)
[2018-11-19] MEDS: Gabapentin 300 MG CAPSULE PO SCH ×3 (11:11→21:08)
[2018-11-19] MEDS: Metoclopramide 10 MG/2 ML VIAL IVP SCH ×2 (12:49→18:35)
[2018-11-19] MEDS: *HR* Metoprolol 5 MG/5 ML VIAL IVP SCH ×2 (12:49→18:34)
--- NOTE | 2018-11-19 13:06 | General Surgery Progress Note ---
Date of Encounter: 11/19/18 Time of Encounter: 13:01 - Assessment and Plan (1) Presence of drug-eluting stent in anterior descending branch of left coronary artery Current Visit: Yes Status: Chronic continue plavix - ok to clamp ngt for 30 minutes after given holding aspirin per cardiology monitor Hb, transfuse as needed (2) Colon cancer Current Visit: No Status: Chronic pod 2 lap to open extended right colectomy, lysis of adhesions ok water, ice, pills -plavix prn pain control keep HOB 30 degrees due to reflux/ngt Cr normal change to D5 0.45 with 20 kcl continue santiago for accurate I/Os binder for comfort OOB to chair continue antibiotics gi/dvt prophylaxis Qualifiers: Colon location: transverse Qualified Code(s): C18.4 - Malignant neoplasm of transverse colon (3) Hypotension Current Visit: Yes Status: Resolved resolved Qualifiers: Hypotension type: unspecified hypotension type Qualified Code(s): I95.9 - Hypotension, unspecified (4) MANDIE (acute kidney injury) Current Visit: Yes Status: Resolved continue santiago monitor resolved (5) GERD (gastroesophageal reflux disease) Current Visit: Yes Status: Chronic cont omeprazole start po carafate Qualifiers: Esophagitis presence: esophagitis presence not specified Qualified Code(s): K21.9 - Gastro-esophageal reflux disease without esophagitis (6) Anemia Current Visit: Yes Status: Chronic patients anemia is due to chronic blood loss from her tumor, and dilutional after surgery Qualifiers: Iron deficiency anemia type: chronic blood loss Qualified Code(s): D50.0 - Iron deficiency anemia secondary to blood loss (chronic) (7) Tobacco abuse disorder Current Visit: No Status: Chronic ok nicotine patch (8) Hypertension Current Visit: No Status: Chronic scheduled lopressor monitor Qualifiers: Hypertension type: essential hypertension Qualified Code(s): I10 - Essential (primary) hypertension (9) Postoperative ileus Current Visit: Yes Status: Acute patient with postoperative ileus in not unexpected during this hospital course given the complex nature of her surgery ngt to LIWS prn pain control strict I/Os HOB 30 degree await return bowel function Subjective Patient reports: feels better, still having pain, pain is less, voiding w/o difficulty (foely), no flatus, no bowel movement, nausea (better today compared to last night), afebrile Objective Vital Signs - Last 8 Hours Temp Pulse Resp BP Pulse Ox 11/19/18 12:17 98.4 F 99 16 172/66 92 11/19/18 10:34 16 94 11/19/18 10:32 98.1 F 94 16 162/67 92 11/19/18 07:00 98.5 F 91 16 132/58 92 Intake and Output 11/18/18 11/19/18 11/19/18 23:59 07:59 15:59 Intake Total 1400 / 2302 1300 / 1500 200 / 1500 Output Total 910 / 2855 950 / 1520 570 / 1520 Balance 490 / -553 350 / -20 -370 / -20 Intake: IV Fluids 1400 / 2000 1300 / 1500 200 / 1500 0.9 % Sodium Chloride 1,000 ML 1000 / 1000 1000 / 1000 @ 140 mls/hr IVC .Q7H9M [facility] Rx# :[id number] Ofirmev 1,000 mg/100 ml 1,000 100 / 300 200 / 200 mg In 100 ml @ 400 mls/hr IVPB Q6HR [facility] Rx#:[id number] Cipro Premix 400 MG/200 ML 400 200 / 400 200 / 200 mg In 200 ml @ 200 mls/hr IVPB Q12HR [facility] Rx#:[id number] Flagyl Premix 500 MG/100 ML 500 100 / 300 100 / 100 mg In 100 ml @ 100 mls/hr IVPB Q8HR [facility] Rx#:[id number] Oral 0 / 0 Output: Emesis 130 / 130 Gastric Tube Lavage Amount 750 / 750 350 / 350 Right Nare 750 / 750 350 / 350 Catheter 450 / 950 500 / 950 Wound Drainage 30 / 200 150 / 220 70 / 220 Right Lower Quadrant 30 / 200 150 / 220 70 / 220 Other: Meal NPO Percent of Meal Consumed 0% Stool Size Moderate Stool Consistency liquid Stool Characteristics Mucoid Stool Color Brown Blood Tinged # Bowel Movement Diapers 1 Weight 100.9 kg Blood Glucose* 160 116 111 Patient Weight 11/19/18 23:59 Weight 100.9 kg - General physical appearance well developed, well nourished, no distress - Eyes PERRL, normal ocular movement - ENT normal mucosa, normocephalic - Neck Neck exam: trachea midline - Respiratory normal expansion, clear to auscultation - Cardiovascular Cardiovascular exam: Present: RRR - Abdomen Abdomen: Present: soft, tender (appropriate post op tenderness). Absent: bowel sounds present, masses, guarding Additional Comments: gabbie drain serosang (more serous) - Incision Incision: Present: clean and dry, intact - Integumentary no rash - Musculoskeletal normal posture - Psychiatric oriented to time, oriented to person, speech is normal - Labs 11/19/18 01:10 11/19/18 01:10 Diabetes panel 11/19/18 Range/Units 01:10 Sodium 137 (136-145) mEq/L Potassium 3.7 (3.5-5.1) mEq/L Chloride 106 (98-107) mEq/L Carbon Dioxide 23 (23-29) mEq/L BUN 10 (8-23) mg/dL Creatinine 0.97 (0.60-1.20) mg/dL Glucose 142 H (70-105) mg/dL Calcium 7.7 L (8.6-10.3) mg/dL Calcium panel 11/19/18 Range/Units 01:10 Calcium 7.7 L (8.6-10.3) mg/dL Phosphorus 2.6 L (2.7-4.5) mg/dL Pituitary panel 11/19/18 Range/Units 01:10 Sodium 137 (136-145) mEq/L Potassium 3.7 (3.5-5.1) mEq/L Chloride 106 (98-107) mEq/L Carbon Dioxide 23 (23-29) mEq/L BUN 10 (8-23) mg/dL Creatinine 0.97 (0.60-1.20) mg/dL Glucose 142 H (70-105) mg/dL Calcium 7.7 L (8.6-10.3) mg/dL Adrenal panel 11/19/18 Range/Units 01:10 Sodium 137 (136-145) mEq/L Potassium 3.7 (3.5-5.1) mEq/L Chloride 106 (98-107) mEq/L Carbon Dioxide 23 (23-29) mEq/L BUN 10 (8-23) mg/dL Creatinine 0.97 (0.60-1.20) mg/dL Glucose 142 H (70-105) mg/dL Calcium 7.7 L (8.6-10.3) mg/dL - Imaging Additional Studies: KUB images revewied Consult Discharge Plan - Plan Referrals: Elaine Allen MD [Partnered Physician] - 12/10/18 9:05 am Daniel Kirk MD [Partnered Physician] - 12/08/18 10:00 am Andrew Chen MD [Partnered Physician] -
[2018-11-19] MEDS: D5% in 0.45% NACL w KCl 20 MEQ/1,000 ML MLS IVC SCH (15:17)
[2018-11-19] MEDS: *HR* Promethazine 25 MG/ML VIAL IVP PRN (15:49)
[2018-11-20] MEDS: Acetaminophen IV 1,000 MG/100 ML INFUS..BTL IVPB SCH ×5 (00:04→23:24)
[2018-11-20] MEDS: Metoclopramide 10 MG/2 ML VIAL IVP SCH ×5 (00:06→23:25)
[2018-11-20] MEDS: MetroNIDAZOLE 500 MG/100 ML 500 MG/100 ML BAG IVPB SCH ×4 (00:07→23:54)
[2018-11-20] MEDS: *HR* Metoprolol 5 MG/5 ML VIAL IVP SCH ×5 (00:07→23:28)
[2018-11-20] MEDS: Ipratropium/Albuterol Neb 3 ML IH SCH ×4 (03:34→22:18)
[2018-11-20] MEDS: D5% in 0.45% NACL w KCl 20 MEQ/1,000 ML MLS IVC SCH ×2 (05:07→11:11)
[2018-11-20 06:13] LABS: Basophils % 0.3 %; Eosinophils # 0.1 K/mcL (0.0-0.6); Eosinophils % 1.1 %; Hematocrit 28.1 % (35.3-44.9); Hemoglobin 8.9 g/dL (11.5-15.4); Immature Granulocytes % 0.6 % (0-4); Lymphocytes # 1.7 K/mcL (0.6-4.6); Lymphocytes % 21.9 %; Mean Corpuscular HGB Conc 31.7 g/dL (31.6-35.5); Mean Corpuscular Hemoglobin 27.4 pg (28.0-33.3); Mean Corpuscular Volume 86.5 fL (83.0-100.0); Mean Platelet Volume 10.7 fL (9.4-12.4); Monocytes # 0.5 K/mcL (0.0-1.3); Monocytes % 6.9 %; Neutrophils # 5.4 K/mcL (1.6-8.9); Platelet Count 229 K/mcL (140-400); Red Blood Count 3.25 M/mcL (3.82-4.97); Red Cell Distribution Width 15.8 % (11.5-14.5); Segmented Neutrophils % 69.2 %; White Blood Count 7.9 K/mcL (4.3-11.1)
[2018-11-20 06:32] LABS: BUN/Creatinine Ratio 9 (6-26); Blood Urea Nitrogen 7 mg/dL (8-23); Calcium 8.1 mg/dL (8.6-10.3); Carbon Dioxide 27 mEq/L (23-29); Chloride 105 mEq/L (98-107); Glucose 125 mg/dL (70-105); Magnesium 1.8 mg/dL (1.6-2.6); Osmolality,Calculated 287 (280-300); Phosphorous 1.5 mg/dL (2.7-4.5); Potassium 3.3 mEq/L (3.5-5.1); Sodium 139 mEq/L (136-145); eGFR For African Americans > 60 (> 60); eGFR For Non-African Americans > 60 (> 60)
[2018-11-20] MEDS: Metoprolol XL (24 HR) Succ 25 MG TAB.ER.24H PO SCH (07:58)
[2018-11-20] MEDS: Nicotine 7 MG PATCH.TD24 TD SCH (08:00)
[2018-11-20] MEDS: Gabapentin 300 MG CAPSULE PO SCH ×3 (08:00→19:52)
[2018-11-20] MEDS: Pantoprazole 40 MG VIAL IVP SCH (08:04)
[2018-11-20] MEDS ORDERED: Potassium Phosphate 44 MEQ in 0.9 % Sodium Chloride 250 ML IVPB ONE (09:49)
--- NOTE | 2018-11-20 11:25 | General Surgery Progress Note ---
Date of Encounter: 11/20/18 Time of Encounter: 11:18 - Assessment and Plan (1) Presence of drug-eluting stent in anterior descending branch of left coronary artery Current Visit: Yes Status: Chronic continue plavix - ok to clamp ngt for 30 minutes after given holding aspirin per cardiology monitor Hb, transfuse as needed (2) Colon cancer Current Visit: No Status: Chronic pod 3 lap to open extended right colectomy, lysis of adhesions ok water, ice, pills -plavix prn pain control keep HOB 30 degrees due to reflux/ngt Cr normal continue D5 0.45 with 20 kcl continue santiago for accurate I/Os binder for comfort OOB to chair continue antibiotics gi/dvt prophylaxis Qualifiers: Colon location: transverse Qualified Code(s): C18.4 - Malignant neoplasm of transverse colon (3) MANDIE (acute kidney injury) Current Visit: Yes Status: Resolved continue santiago monitor resolved (4) GERD (gastroesophageal reflux disease) Current Visit: Yes Status: Chronic cont omeprazole start po carafate Qualifiers: Esophagitis presence: esophagitis presence not specified Qualified Code(s): K21.9 - Gastro-esophageal reflux disease without esophagitis (5) Tobacco abuse disorder Current Visit: No Status: Chronic ok nicotine patch (6) Hypertension Current Visit: No Status: Chronic scheduled lopressor, increased today to 7.5 mg monitor Qualifiers: Hypertension type: essential hypertension Qualified Code(s): I10 - Essential (primary) hypertension (7) Postoperative ileus Current Visit: Yes Status: Acute patient with postoperative ileus in not unexpected during this hospital course given the complex nature of her surgery ngt to LIWS prn pain control strict I/Os HOB 30 degree await return bowel function Subjective Patient reports: no new complaints, feels better, still having pain, pain is less, no flatus, no bowel movement, nausea, afebrile Objective Vital Signs - Last 8 Hours Temp Pulse Resp BP Pulse Ox 11/20/18 10:47 97.9 F 84 18 146/67 95 11/20/18 06:28 98.1 F 77 16 152/70 93 11/20/18 04:23 98.8 F 84 16 159/75 93 11/20/18 03:44 18 91 Intake and Output 11/19/18 11/20/18 11/20/18 23:59 07:59 15:59 Intake Total 1400 / 3100 500 / 1500 1000 / 1500 Output Total 1970 / 3490 670 / 1240 570 / 1240 Balance -570 / -390 -170 / 260 430 / 260 Intake: IV Fluids 1400 / 3100 500 / 1500 1000 / 1500 KCl 20mEq IN D5%-0.45 NACL 20 1000 / 1000 1000 / 1000 meq In 1,000 ml @ 125 mls/hr IVC .Q8H [facility] Rx#:[id number] Ofirmev 1,000 mg/100 ml 1,000 100 / 400 200 / 200 mg In 100 ml @ 400 mls/hr IVPB Q6HR [facility] Rx#:[id number] Cipro Premix 400 MG/200 ML 400 200 / 400 200 / 200 mg In 200 ml @ 200 mls/hr IVPB Q12HR [facility] Rx#:[id number] Flagyl Premix 500 MG/100 ML 500 100 / 300 100 / 100 mg In 100 ml @ 100 mls/hr IVPB Q8HR [facility] Rx#:[id number] Oral 0 / 0 0 / 0 Output: Gastric Tube Lavage Amount 1300 / 1650 450 / 450 Right Nare 1300 / 1650 450 / 450 Catheter 650 / 1600 200 / 750 550 / 750 Urethral (Santiago) 200 / 200 Wound Drainage 20 / 240 20 / 40 20 / 40 Right Lower Quadrant 20 / 240 20 / 40 20 / 40 Other: Weight 101.3 kg Blood Glucose* 106 139 Patient Weight 11/20/18 23:59 Weight 101.3 kg - General physical appearance well developed, well nourished, no distress, no pain, obese - Eyes PERRL, normal ocular movement - ENT normal mucosa, normocephalic - Neck Neck exam: trachea midline - Respiratory normal expansion, clear to auscultation - Cardiovascular Cardiovascular exam: Present: RRR - Abdomen Abdomen: Present: bowel sounds present, soft, tender (appropriate post op tenderness). Absent: guarding, rebound - Incision Incision: Present: clean and dry, intact - Integumentary no rash, no growths - Neurologic CN 2-12 grossly intact - Musculoskeletal normal posture - Psychiatric oriented to time, oriented to person, oriented to place, speech is normal, memory intact - Labs 11/20/18 05:22 11/20/18 05:22 Diabetes panel 11/20/18 Range/Units 05:22 Sodium 139 (136-145) mEq/L Potassium 3.3 L (3.5-5.1) mEq/L Chloride 105 (98-107) mEq/L Carbon Dioxide 27 (23-29) mEq/L BUN 7 L (8-23) mg/dL Creatinine 0.79 (0.60-1.20) mg/dL Glucose 125 H (70-105) mg/dL Calcium 8.1 L (8.6-10.3) mg/dL Calcium panel 11/20/18 Range/Units 05:22 Calcium 8.1 L (8.6-10.3) mg/dL Phosphorus 1.5 L (2.7-4.5) mg/dL Pituitary panel 11/20/18 Range/Units 05:22 Sodium 139 (136-145) mEq/L Potassium 3.3 L (3.5-5.1) mEq/L Chloride 105 (98-107) mEq/L Carbon Dioxide 27 (23-29) mEq/L BUN 7 L (8-23) mg/dL Creatinine 0.79 (0.60-1.20) mg/dL Glucose 125 H (70-105) mg/dL Calcium 8.1 L (8.6-10.3) mg/dL Adrenal panel 11/20/18 Range/Units 05:22 Sodium 139 (136-145) mEq/L Potassium 3.3 L (3.5-5.1) mEq/L Chloride 105 (98-107) mEq/L Carbon Dioxide 27 (23-29) mEq/L BUN 7 L (8-23) mg/dL Creatinine 0.79 (0.60-1.20) mg/dL Glucose 125 H (70-105) mg/dL Calcium 8.1 L (8.6-10.3) mg/dL Consult Discharge Plan - Plan Referrals: Elaine Allen MD [Partnered Physician] - 12/10/18 9:05 am Daniel Kirk MD [Partnered Physician] - 12/08/18 10:00 am Andrew Chen MD [Partnered Physician] -
[2018-11-20] MEDS: *HR* Heparin 5,000 UNIT/ML VIAL SQ SCH ×2 (12:55→18:15)
[2018-11-21] MEDS: Ipratropium/Albuterol Neb 3 ML IH SCH ×4 (03:34→22:07)
[2018-11-21 04:43] LABS: Basophils % 0.4 %; Eosinophils # 0.2 K/mcL (0.0-0.6); Eosinophils % 2.9 %; Hematocrit 28.6 % (35.3-44.9); Hemoglobin 8.8 g/dL (11.5-15.4); Immature Granulocytes % 0.5 % (0-4); Lymphocytes # 2.1 K/mcL (0.6-4.6); Lymphocytes % 25.8 %; Mean Corpuscular HGB Conc 30.8 g/dL (31.6-35.5); Mean Corpuscular Hemoglobin 27.2 pg (28.0-33.3); Mean Corpuscular Volume 88.3 fL (83.0-100.0); Mean Platelet Volume 10.3 fL (9.4-12.4); Monocytes # 0.4 K/mcL (0.0-1.3); Neutrophils # 5.2 K/mcL (1.6-8.9); Platelet Count 243 K/mcL (140-400); Red Blood Count 3.24 M/mcL (3.82-4.97); Red Cell Distribution Width 15.6 % (11.5-14.5); Segmented Neutrophils % 65.4 %
[2018-11-21 05:10] LABS: Blood Urea Nitrogen 6 mg/dL (8-23); Calcium 8.2 mg/dL (8.6-10.3); Carbon Dioxide 27 mEq/L (23-29); Chloride 105 mEq/L (98-107); Glucose 124 mg/dL (70-105); Osmolality,Calculated 287 (280-300); Potassium 3.4 mEq/L (3.5-5.1); Sodium 139 mEq/L (136-145)
[2018-11-21] MEDS: Acetaminophen IV 1,000 MG/100 ML INFUS..BTL IVPB SCH ×4 (05:21→23:48)
[2018-11-21 05:27] LABS: BUN/Creatinine Ratio 7 (6-26); eGFR For African Americans > 60 (> 60); eGFR For Non-African Americans > 60 (> 60)
[2018-11-21] MEDS: D5% in 0.45% NACL w KCl 20 MEQ/1,000 ML MLS IVC SCH (05:31)
[2018-11-21] MEDS: Metoclopramide 10 MG/2 ML VIAL IVP SCH ×3 (05:32→18:00)
[2018-11-21] MEDS: *HR* Metoprolol 5 MG/5 ML VIAL IVP SCH ×3 (05:33→17:58)
[2018-11-21] MEDS: *HR* Heparin 5,000 UNIT/ML VIAL SQ SCH ×2 (05:39→18:01)
[2018-11-21] MEDS ORDERED: D5% in 0.45% NACL w KCl 20 MEQ/1,000 ML MLS IVC SCH (08:38)
[2018-11-21] MEDS ORDERED: Scopolamine Patch 1.5 MG PATCH.TD72 TD ONE (08:41)
[2018-11-21] MEDS: Nicotine 7 MG PATCH.TD24 TD SCH (09:34)
[2018-11-21] MEDS: Gabapentin 300 MG CAPSULE PO SCH ×3 (09:37→20:04)
[2018-11-21] MEDS: Pantoprazole 40 MG VIAL IVP SCH (09:38)
[2018-11-21] MEDS: MetroNIDAZOLE 500 MG/100 ML 500 MG/100 ML BAG IVPB SCH ×2 (09:38→16:23)
--- NOTE | 2018-11-21 09:51 | General Surgery Progress Note ---
Date of Encounter: 11/21/18 Time of Encounter: 09:40 - Assessment and Plan (1) Postoperative ileus Current Visit: Yes Status: Acute Postoperative ileus has not resolved. We will continue to use her nasogastric tube. Intermittent clamping may be indicated. I may place this to a Frank bag tomorrow. In the meantime, she will require PICC line placement and TPN (2) Colon cancer Current Visit: Yes Status: Chronic The patient is doing well after extended right hemicolectomy for proximal transverse colon cancer with associated adhesions. She has prolonged postoperative ileus. Continue conservative management with IV hydration and nasogastric tube drainage. Qualifiers: Colon location: transverse Qualified Code(s): C18.4 - Malignant neoplasm of transverse colon Subjective Narrative: The patient is seen and evaluated on morning rounds. I did discuss the patient's care with Dr. Allen. I really cannot hear any bowel sounds this morning. She continues to have high nasogastric tube output. I have recommended that we place a PICC line and start TPN at this point. She reports that she had some flatus but there are absolutely no bowel sounds. She has postoperative ileus and this should resolve with continued supportive care. Objective Vital Signs - Last 8 Hours Temp Pulse Resp BP Pulse Ox 11/21/18 07:04 98.5 F 82 18 143/72 92 11/21/18 04:41 98.4 F 75 16 134/48 93 11/21/18 03:35 16 94 Intake and Output 11/20/18 11/21/18 11/21/18 23:59 07:59 15:59 Intake Total 400 / 2100 1500 / 1500 Output Total 500 / 2990 1120 / 1330 210 / 1330 Balance -100 / -890 380 / 170 -210 / 170 Intake: IV Fluids 400 / 2100 1500 / 1500 KCl 20mEq IN D5%-0.45 NACL 20 1000 / 1000 meq In 1,000 ml @ 125 mls/hr IVC .Q8H [facility] Rx#:[id number] Ofirmev 1,000 mg/100 ml 1,000 100 / 400 200 / 200 mg In 100 ml @ 400 mls/hr IVPB Q6HR [facility] Rx#:[id number] Cipro Premix 400 MG/200 ML 400 200 / 400 200 / 200 mg In 200 ml @ 200 mls/hr IVPB Q12HR [facility] Rx#:[id number] Flagyl Premix 500 MG/100 ML 500 100 / 300 100 / 100 mg In 100 ml @ 100 mls/hr IVPB Q8HR [facility] Rx#:[id number] Oral 0 / 0 0 / 0 Output: Gastric Tube Lavage Amount 500 / 1850 Right Nare 500 / 1850 Catheter 0 / 1100 500 / 710 210 / 710 Gastric Drainage 600 / 600 Wound Drainage 0 40 Right Lower Quadrant 0 40 Other: Weight 100 kg Blood Glucose* 111 113 Patient Weight 11/21/18 23:59 Weight 100 kg - General physical appearance well developed, well nourished, moderate pain (The patient has nasogastric tube in place with high drainage), obese - Respiratory normal expansion, normal respiratory effort, clear to percussion, clear to auscultation - Cardiovascular Cardiovascular exam: Present: RRR, no murmurs/rubs/gallops - Abdomen Abdomen: Present: soft, non tender (Bowel sounds are negative) - Neurologic CN 2-12 grossly intact, normal coordination, normal sensation - Psychiatric oriented to time, oriented to person, oriented to place, speech is normal, memory intact - Labs 11/21/18 04:20 11/21/18 04:20 Diabetes panel 11/21/18 Range/Units 04:20 Sodium 139 (136-145) mEq/L Potassium 3.4 L (3.5-5.1) mEq/L Chloride 105 (98-107) mEq/L Carbon Dioxide 27 (23-29) mEq/L BUN 6 L (8-23) mg/dL Creatinine 0.82 (0.60-1.20) mg/dL Glucose 124 H (70-105) mg/dL Calcium 8.2 L (8.6-10.3) mg/dL Calcium panel 11/21/18 Range/Units 04:20 Calcium 8.2 L (8.6-10.3) mg/dL Pituitary panel 11/21/18 Range/Units 04:20 Sodium 139 (136-145) mEq/L Potassium 3.4 L (3.5-5.1) mEq/L Chloride 105 (98-107) mEq/L Carbon Dioxide 27 (23-29) mEq/L BUN 6 L (8-23) mg/dL Creatinine 0.82 (0.60-1.20) mg/dL Glucose 124 H (70-105) mg/dL Calcium 8.2 L (8.6-10.3) mg/dL Adrenal panel 11/21/18 Range/Units 04:20 Sodium 139 (136-145) mEq/L Potassium 3.4 L (3.5-5.1) mEq/L Chloride 105 (98-107) mEq/L Carbon Dioxide 27 (23-29) mEq/L BUN 6 L (8-23) mg/dL Creatinine 0.82 (0.60-1.20) mg/dL Glucose 124 H (70-105) mg/dL Calcium 8.2 L (8.6-10.3) mg/dL Consult Discharge Plan - Plan Referrals: Elaine Allen MD [Partnered Physician] - 12/10/18 9:05 am Daniel Kirk MD [Partnered Physician] - 12/08/18 10:00 am Andrew Chen MD [Partnered Physician] -
[2018-11-21 12:29] LABS: Magnesium 1.6 mg/dL (1.6-2.6); Phosphorous 2.5 mg/dL (2.7-4.5)
[2018-11-21] MEDS ORDERED: D10% in Water 500 ML IVC PRN (12:52)
[2018-11-21] MEDS ORDERED: Potassium Phosphate 44 MEQ in 0.9 % Sodium Chloride 250 ML IVPB ONE (13:14)
[2018-11-21] MEDS ORDERED: *HR* Dextrose 50 % in Water (Syg) 50 ML SYRINGE IVP PRN (13:16)
[2018-11-21] MEDS ORDERED: Dextrose Gel 15 GM/37.5 ML TUBE PO PRN ×2 (13:16)
[2018-11-21] MEDS ORDERED: D5% in Water 1,000 ML IVC PRN (13:16)
[2018-11-21] MEDS ORDERED: Clinimix E 5%-15% SOLUTION 2,000 ML with MVI, adult with vitamin K 10 ML IVC SCH (17:00)
[2018-11-21] MEDS ORDERED: Clinimix E 5%-20% SOLUTION 2,000 ML with MVI, adult with vitamin K 10 ML IVC SCH (17:00)
[2018-11-21] MEDS: Insulin LISPRO 300 UNITS/3 ML VIAL SQ SCH (18:09)
[2018-11-21] MEDS: 0.9 % Sodium Chloride 1,000 ML IVC SCH (19:38)
[2018-11-22] MEDS: Insulin LISPRO 300 UNITS/3 ML VIAL SQ SCH ×7 (00:14→23:41)
[2018-11-22] MEDS: MetroNIDAZOLE 500 MG/100 ML 500 MG/100 ML BAG IVPB SCH ×4 (00:18→23:42)
[2018-11-22] MEDS: *HR* Metoprolol 5 MG/5 ML VIAL IVP SCH ×5 (00:19→23:44)
[2018-11-22] MEDS: Metoclopramide 10 MG/2 ML VIAL IVP SCH ×5 (00:19→23:44)
[2018-11-22] MEDS: Ipratropium/Albuterol Neb 3 ML IH SCH ×4 (03:22→21:07)
[2018-11-22 04:20] LABS: BUN/Creatinine Ratio 8 (6-26); Blood Urea Nitrogen 6 mg/dL (8-23); Calcium 8.4 mg/dL (8.6-10.3); Carbon Dioxide 27 mEq/L (23-29); Chloride 104 mEq/L (98-107); Glucose 112 mg/dL (70-105); Magnesium 1.4 mg/dL (1.6-2.6); Osmolality,Calculated 288 (280-300); Phosphorous 3.7 mg/dL (2.7-4.5); Potassium 3.3 mEq/L (3.5-5.1); Sodium 140 mEq/L (136-145); Triglycerides 197 mg/dL (< 150); eGFR For African Americans > 60 (> 60); eGFR For Non-African Americans > 60 (> 60)
[2018-11-22] MEDS: *HR* Heparin 5,000 UNIT/ML VIAL SQ SCH ×2 (05:18→18:14)
[2018-11-22] MEDS: Acetaminophen IV 1,000 MG/100 ML INFUS..BTL IVPB SCH ×4 (05:18→23:43)
[2018-11-22] MEDS: Nicotine 7 MG PATCH.TD24 TD SCH (08:42)
[2018-11-22] MEDS: Pantoprazole 40 MG VIAL IVP SCH (08:43)
[2018-11-22] MEDS: Gabapentin 300 MG CAPSULE PO SCH ×3 (08:43→21:15)
--- NOTE | 2018-11-22 13:04 | AcuteCareSurgery Progress Note ---
<Gali Romero Mark Anthony - Last Filed: 11/22/18 13:02> Date of Encounter: 11/22/18 Time of Encounter: 09:30 - Assessment and Plan (1) Cancer of transverse colon Current Visit: Yes Status: Acute Date of procedure: 11/17/18 Pre-op diagnosis: transverse colon cancer Post-op diagnosis: same Procedure: Laparoscopic converted to open extended right colectomy Complications: none immediate Anesthesia: GETA Surgeon: Elaine Allen POD #5 as above. Adenocarcinoma with extensive mucousinst features of the transverse colon, too submucosa lipoma of the ascending colon, absent cecal appendix. Pathological stage pT3 pN0 regional lymph nodes 0 of 18. She is recovering as expected. She's had a small amount of flatus. She is on the PO medications. We will discontinue her Santiago catheter. She can get out of bed to chair [address] her NG to a Santiago bag. May be returned to suction if she has nausea. Plan: Continue supportive care and discomfort management while awaiting full return of bowel function Continue G.I. and DVT prophylaxis Incentive spirometry 10 times every hour while awake Out of bed to chair TID, do not offer meal trays while in the bed Activity as tolerated Apply ice 20 minutes on 20 minutes off as needed discontinue Santiago catheter place NG tube Santiago back, return to suction if she has nausea or vomiting repeat a.m. labs daily dressing changes (2) Morbid obesity with BMI of 40.0-44.9, adult Current Visit: Yes Status: Chronic appropriate diet education (3) Tobacco abuse disorder Current Visit: Yes Status: Chronic smoking cessation RT pulm toileting (4) Chronic pain Current Visit: Yes Status: Acute Continue home medications Qualifiers: Chronic pain type: other chronic pain Qualified Code(s): G89.29 - Other chronic pain (5) Postoperative ileus Current Visit: Yes Status: Acute Resolving. See above Subjective Patient reports: no new complaints, feels better, still having pain, pain is less, voiding w/o difficulty (per santiago), flatus, no bowel movement, nausea (improved), afebrile Objective Vital Signs - Last 8 Hours Temp Pulse Resp BP Pulse Ox 11/22/18 12:45 149/75 11/22/18 10:56 98.5 F 71 18 173/82 94 11/22/18 10:03 16 95 11/22/18 07:21 98.3 F 75 16 145/74 94 Intake and Output 11/21/18 11/22/18 11/22/18 23:59 07:59 15:59 Intake Total 600 / 2100 300 / 300 Output Total 760 / 3675 1750 / 3165 1415 / 3165 Balance -160 / -1575 -1450 / -2865 -1415 / -2865 Intake: IV Fluids 600 / 2100 300 / 300 Ofirmev 1,000 mg/100 ml 1,000 200 / 400 200 / 200 mg In 100 ml @ 400 mls/hr IVPB Q6HR [facility] Rx#:[id number] Cipro Premix 400 MG/200 ML 400 200 / 400 mg In 200 ml @ 200 mls/hr IVPB Q12HR [facility] Rx#:[id number] Flagyl Premix 500 MG/100 ML 500 200 / 300 100 / 100 mg In 100 ml @ 100 mls/hr IVPB Q8HR [facility] Rx#:[id number] Oral 0 / 0 0 / 0 Output: Catheter 400 / 1585 850 / 1350 500 / 1350 Gastric Drainage 300 / 2000 900 / 1800 900 / 1800 Wound Drainage 60 / 90 15 / 15 Right Lower Quadrant 60 / 90 15 / 15 Other: Blood Glucose* 107 116 118 - General physical appearance no distress, moderate pain - Eyes normal ocular movement - ENT atraumatic, normocephalic - Neck Neck exam: trachea midline - Respiratory normal expansion, normal respiratory effort, clear to auscultation - Cardiovascular Cardiovascular exam: Present: RRR - Abdomen Abdomen: Present: bowel sounds present (faint and hypoactive), soft, tender (expected postoperative) Hernia: none - Incision Incision: Present: clean and dry, intact - Integumentary no rash - Neurologic normal sensation - Musculoskeletal normal posture - Psychiatric oriented to time, oriented to person, oriented to place, speech is normal, memory intact - Labs 11/21/18 04:20 11/22/18 03:40 Diabetes panel 11/22/18 Range/Units 03:40 Sodium 140 (136-145) mEq/L Potassium 3.3 L (3.5-5.1) mEq/L Chloride 104 (98-107) mEq/L Carbon Dioxide 27 (23-29) mEq/L BUN 6 L (8-23) mg/dL Creatinine 0.76 (0.60-1.20) mg/dL Glucose 112 H (70-105) mg/dL Calcium 8.4 L (8.6-10.3) mg/dL Triglycerides 197 H (< 150) mg/dL Calcium panel 11/22/18 Range/Units 03:40 Calcium 8.4 L (8.6-10.3) mg/dL Phosphorus 3.7 (2.7-4.5) mg/dL Pituitary panel 11/22/18 Range/Units 03:40 Sodium 140 (136-145) mEq/L Potassium 3.3 L (3.5-5.1) mEq/L Chloride 104 (98-107) mEq/L Carbon Dioxide 27 (23-29) mEq/L BUN 6 L (8-23) mg/dL Creatinine 0.76 (0.60-1.20) mg/dL Glucose 112 H (70-105) mg/dL Calcium 8.4 L (8.6-10.3) mg/dL Adrenal panel 11/22/18 Range/Units 03:40 Sodium 140 (136-145) mEq/L Potassium 3.3 L (3.5-5.1) mEq/L Chloride 104 (98-107) mEq/L Carbon Dioxide 27 (23-29) mEq/L BUN 6 L (8-23) mg/dL Creatinine 0.76 (0.60-1.20) mg/dL Glucose 112 H (70-105) mg/dL Calcium 8.4 L (8.6-10.3) mg/dL Consult Discharge Plan - Plan Referrals: Elaine Allen MD [Partnered Physician] - 12/10/18 9:05 am Daniel Kirk MD [Partnered Physician] - 12/08/18 10:00 am Andrew Chen MD [Partnered Physician] - <Enoc Bardales - Last Filed: 11/22/18 15:43> Date of Encounter: 11/22/18 - Assessment and Plan (1) Postoperative ileus Current Visit: Yes Status: Acute (2) Colon cancer Current Visit: Yes Status: Chronic Qualifiers: Colon location: transverse Qualified Code(s): C18.4 - Malignant neoplasm of transverse colon Objective Vital Signs - Last 8 Hours Temp Pulse Resp BP Pulse Ox 11/22/18 15:33 99 F 74 17 159/71 95 11/22/18 12:45 149/75 11/22/18 10:56 98.5 F 71 18 173/82 94 11/22/18 10:03 16 95 Intake and Output 11/21/18 11/22/18 11/22/18 23:59 07:59 15:59 Intake Total 600 / 2100 300 / 300 Output Total 760 / 3675 1750 / 3165 1415 / 3165 Balance -160 / -1575 -1450 / -2865 -1415 / -2865 Intake: IV Fluids 600 / 2100 300 / 300 Ofirmev 1,000 mg/100 ml 1,000 200 / 400 200 / 200 mg In 100 ml @ 400 mls/hr IVPB Q6HR [facility] Rx#:[id number] Cipro Premix 400 MG/200 ML 400 200 / 400 mg In 200 ml @ 200 mls/hr IVPB Q12HR [facility] Rx#:[id number] Flagyl Premix 500 MG/100 ML 500 200 / 300 100 / 100 mg In 100 ml @ 100 mls/hr IVPB Q8HR [facility] Rx#:[id number] Oral 0 / 0 0 / 0 Output: Catheter 400 / 1585 850 / 1350 500 / 1350 Gastric Drainage 300 / 2000 900 / 1800 900 / 1800 Wound Drainage 60 / 90 15 / 15 Right Lower Quadrant 60 / 90 Other: Blood Glucose* 107 116 118 - Labs 11/21/18 04:20 11/22/18 03:40 Diabetes panel 11/22/18 Range/Units 03:40 Sodium 140 (136-145) mEq/L Potassium 3.3 L (3.5-5.1) mEq/L Chloride 104 (98-107) mEq/L Carbon Dioxide 27 (23-29) mEq/L BUN 6 L (8-23) mg/dL Creatinine 0.76 (0.60-1.20) mg/dL Glucose 112 H (70-105) mg/dL Calcium 8.4 L (8.6-10.3) mg/dL Triglycerides 197 H (< 150) mg/dL Calcium panel 11/22/18 Range/Units 03:40 Calcium 8.4 L (8.6-10.3) mg/dL Phosphorus 3.7 (2.7-4.5) mg/dL Pituitary panel 11/22/18 Range/Units 03:40 Sodium 140 (136-145) mEq/L Potassium 3.3 L (3.5-5.1) mEq/L Chloride 104 (98-107) mEq/L Carbon Dioxide 27 (23-29) mEq/L BUN 6 L (8-23) mg/dL Creatinine 0.76 (0.60-1.20) mg/dL Glucose 112 H (70-105) mg/dL Calcium 8.4 L (8.6-10.3) mg/dL Adrenal panel 11/22/18 Range/Units 03:40 Sodium 140 (136-145) mEq/L Potassium 3.3 L (3.5-5.1) mEq/L Chloride 104 (98-107) mEq/L Carbon Dioxide 27 (23-29) mEq/L BUN 6 L (8-23) mg/dL Creatinine 0.76 (0.60-1.20) mg/dL Glucose 112 H (70-105) mg/dL Calcium 8.4 L (8.6-10.3) mg/dL - Attending Attestation I have personally performed a face to face evaluation on this patient. I have reviewed and agree with the care plan. History and Exam by me shows: The patient is seen and evaluated on morning rounds with the acute care surgery team. She continues to have nasogastric tube output. She has good bowel sounds. She has passed some flatus. We will place the nasogastric tube to Santiago bag to try and promote bowel function. Continue supportive care Enoc Bardales MD FACS
[2018-11-22] MEDS ORDERED: NON-FORMULARY MEDICATION 1 EACH EACH (Losartan/Hydrochlorothiazide [Losartan-Hctz 100-25 M PO SCH (13:15)
[2018-11-22] MEDS ORDERED: Clinimix E 5%-15% SOLUTION 2,000 ML with MVI, adult with vitamin K 10 ML IVC SCH (17:00)
[2018-11-22] MEDS: *HR* Promethazine 25 MG/ML VIAL IVP PRN (17:40)
[2018-11-22] MEDS: 0.9 % Sodium Chloride 1,000 ML IVC SCH (17:43)
[2018-11-22] MEDS: Losartan/HCTZ 50-12.5 TABLET PO SCH (18:14)
[2018-11-23] MEDS: Ipratropium/Albuterol Neb 3 ML IH SCH ×4 (03:53→21:53)
[2018-11-23] MEDS: Insulin LISPRO 300 UNITS/3 ML VIAL SQ SCH ×5 (04:16→21:44)
[2018-11-23 04:25] LABS: Basophils % 0.3 %; Eosinophils # 0.3 K/mcL (0.0-0.6); Hematocrit 31.2 % (35.3-44.9); Hemoglobin 9.6 g/dL (11.5-15.4); Immature Granulocytes % 1.5 % (0-4); Lymphocytes # 2.1 K/mcL (0.6-4.6); Mean Corpuscular HGB Conc 30.8 g/dL (31.6-35.5); Mean Corpuscular Hemoglobin 27.4 pg (28.0-33.3); Mean Corpuscular Volume 88.9 fL (83.0-100.0); Mean Platelet Volume 10.3 fL (9.4-12.4); Monocytes # 0.6 K/mcL (0.0-1.3); Monocytes % 5.7 %; Platelet Count 300 K/mcL (140-400); Red Blood Count 3.51 M/mcL (3.82-4.97); Red Cell Distribution Width 15.8 % (11.5-14.5); Segmented Neutrophils % 68.5 %; White Blood Count 10.2 K/mcL (4.3-11.1)
[2018-11-23 04:35] LABS: BUN/Creatinine Ratio 10 (6-26); Blood Urea Nitrogen 8 mg/dL (8-23); Calcium 8.7 mg/dL (8.6-10.3); Carbon Dioxide 29 mEq/L (23-29); Chloride 101 mEq/L (98-107); Glucose 106 mg/dL (70-105); Magnesium 1.3 mg/dL (1.6-2.6); Osmolality,Calculated 285 (280-300); Phosphorous 3.7 mg/dL (2.7-4.5); Potassium 3.2 mEq/L (3.5-5.1); Sodium 138 mEq/L (136-145); eGFR For African Americans > 60 (> 60); eGFR For Non-African Americans > 60 (> 60)
[2018-11-23] MEDS: *HR* Metoprolol 5 MG/5 ML VIAL IVP SCH ×3 (05:23→16:36)
[2018-11-23] MEDS: *HR* Heparin 5,000 UNIT/ML VIAL SQ SCH ×2 (05:24→17:00)
[2018-11-23] MEDS: Acetaminophen IV 1,000 MG/100 ML INFUS..BTL IVPB SCH ×3 (05:25→16:53)
[2018-11-23] MEDS: Metoclopramide 10 MG/2 ML VIAL IVP SCH ×3 (05:47→16:36)
[2018-11-23] MEDS: MetroNIDAZOLE 500 MG/100 ML 500 MG/100 ML BAG IVPB SCH ×2 (08:51→16:36)
[2018-11-23] MEDS: Nicotine 7 MG PATCH.TD24 TD SCH (08:51)
[2018-11-23] MEDS: Pantoprazole 40 MG VIAL IVP SCH (08:51)
[2018-11-23] MEDS: Losartan/HCTZ 50-12.5 TABLET PO SCH (08:51)
[2018-11-23] MEDS: Gabapentin 300 MG CAPSULE PO SCH ×3 (08:52→21:30)
--- NOTE | 2018-11-23 09:12 | General Surgery Progress Note ---
Date of Encounter: 11/23/18 Time of Encounter: 09:00 - Assessment and Plan (1) Postoperative ileus Current Visit: Yes Status: Acute Postoperative ileus has not resolved. We will continue to use her nasogastric tube. Intermittent clamping may be indicated. I may place this to a Frank bag tomorrow. In the meantime, she will require PICC line placement and TPN 11/23/2018. The patient had bowel movement this morning. We will place the NG tube to Frank bag and an attempt to stimulate further bowel activity and maybe get NG out later today. 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 She has prolonged postoperative ileus. Continue conservative management with IV hydration and nasogastric tube drainage. Qualifiers: Colon location: transverse Qualified Code(s): C18.4 - Malignant neoplasm of transverse colon (3) Hypokalemia Current Visit: Yes Status: Acute The patient has persistent hypokalemia. We will plan potassium supplementation today. Subjective Narrative: The patient is seen and evaluated by the acute care surgeons. Acute care surgery is covering for general surgery today. The patient is had extended right hemicolectomy and is experiencing postoperative ileus. Nasogastric tube was placed to Frank bag yesterday but needed to be placed back to suction secondary to nausea. The patient did have a large bowel movement this morning. She had over 400 mL of nasogastric tube drainage. We will replace the NG tube to Frank bag today in an attempt to remove the nasogastric tube later today. Continue TPN and IV hydration. The patient has persistent hypokalemia secondary to nasogastric tube drainage Objective Vital Signs - Last 8 Hours Temp Pulse Resp BP Pulse Ox 11/23/18 06:55 98.6 F 82 16 150/82 95 11/23/18 03:53 17 92 11/23/18 03:31 98.1 F 86 15 135/73 94 Intake and Output 11/22/18 11/23/18 11/23/18 23:59 07:59 15:59 Intake Total 2100 / 4050 650 / 650 Output Total 1050 / 4215 20 / 420 400 / 420 Balance 1050 / -165 630 / 230 -400 / 230 Intake: IV Fluids 2100 / 4050 650 / 650 Clinimix E 5%-15% SOLUTION 2, 1600 / 1600 000 ML @ 50 mls/hr IVC .Q24H MICAELA with M.v.i. Adult 10 ml Rx# :[id number] Ofirmev 1,000 mg/100 ml 1,000 200 / 500 100 / 100 mg In 100 ml @ 400 mls/hr IVPB Q6HR [facility] Rx#:[id number] Cipro Premix 400 MG/200 ML 400 200 / 400 200 / 200 mg In 200 ml @ 200 mls/hr IVPB Q12HR MICA[facility]A Rx#:[id number] Intralipid 20% 250 ML @ 21 mls/ 250 / 250 hr IVPB DAILY@1700 MICAELA Rx#: [id number] Flagyl Premix 500 MG/100 ML 500 100 / 300 100 / 100 mg In 100 ml @ 100 mls/hr IVPB Q8HR [facility] Rx#:[id number] Oral 0 / 0 0 / 0 Output: Urine 650 / 650 0 / 0 Gastric Drainage 400 / 2200 400 / 400 Wound Drainage 20 / 20 Right Lower Quadrant 20 / 20 Other: Stool Size Moderate Stool Consistency soft Stool Color Black # Voids 1 # Bowel Movements 1 Blood Glucose* 124 130 - General physical appearance well developed, moderate pain, obese - Respiratory normal expansion, normal respiratory effort, clear to percussion, clear to auscultation - Cardiovascular Cardiovascular exam: Present: RRR, no murmurs/rubs/gallops - Abdomen Abdomen: Present: bowel sounds present, soft - Incision Incision: Present: clean and dry - Neurologic normal coordination, normal sensation - Psychiatric oriented to time, oriented to person, oriented to place, speech is normal, memory intact - Labs 11/23/18 03:40 11/23/18 03:40 Diabetes panel 11/23/18 Range/Units 03:40 Sodium 138 (136-145) mEq/L Potassium 3.2 L (3.5-5.1) mEq/L Chloride 101 (98-107) mEq/L Carbon Dioxide 29 (23-29) mEq/L BUN 8 (8-23) mg/dL Creatinine 0.77 (0.60-1.20) mg/dL Glucose 106 H (70-105) mg/dL Calcium 8.7 (8.6-10.3) mg/dL Calcium panel 11/23/18 Range/Units 03:40 Calcium 8.7 (8.6-10.3) mg/dL Phosphorus 3.7 (2.7-4.5) mg/dL Pituitary panel 11/23/18 Range/Units 03:40 Sodium 138 (136-145) mEq/L Potassium 3.2 L (3.5-5.1) mEq/L Chloride 101 (98-107) mEq/L Carbon Dioxide 29 (23-29) mEq/L BUN 8 (8-23) mg/dL Creatinine 0.77 (0.60-1.20) mg/dL Glucose 106 H (70-105) mg/dL Calcium 8.7 (8.6-10.3) mg/dL Adrenal panel 11/23/18 Range/Units 03:40 Sodium 138 (136-145) mEq/L Potassium 3.2 L (3.5-5.1) mEq/L Chloride 101 (98-107) mEq/L Carbon Dioxide 29 (23-29) mEq/L BUN 8 (8-23) mg/dL Creatinine 0.77 (0.60-1.20) mg/dL Glucose 106 H (70-105) mg/dL Calcium 8.7 (8.6-10.3) mg/dL Consult Discharge Plan - Plan Referrals: Elaine Allen MD [Partnered Physician] - 12/10/18 9:05 am Daniel Kirk MD [Partnered Physician] - 12/08/18 10:00 am Andrew Chen MD [Partnered Physician] -
[2018-11-23] MEDS ORDERED: Potassium Chloride 20 MEQ, Lidocaine 1% 2 ML in D5% in Water 250 ML IVPB ONE (09:14)
[2018-11-23] MEDS: 0.9 % Sodium Chloride 1,000 ML IVC SCH (16:34)
[2018-11-23] MEDS ORDERED: Clinimix E 5%-15% SOLUTION 2,000 ML with MVI, adult with vitamin K 10 ML IVC SCH (17:00)
[2018-11-24] MEDS: MetroNIDAZOLE 500 MG/100 ML 500 MG/100 ML BAG IVPB SCH ×3 (00:03→17:49)
[2018-11-24] MEDS: *HR* Metoprolol 5 MG/5 ML VIAL IVP SCH ×4 (00:03→17:28)
[2018-11-24] MEDS: Acetaminophen IV 1,000 MG/100 ML INFUS..BTL IVPB SCH ×2 (00:04→06:02)
[2018-11-24] MEDS: Metoclopramide 10 MG/2 ML VIAL IVP SCH ×4 (00:05→17:48)
[2018-11-24] MEDS: Insulin LISPRO 300 UNITS/3 ML VIAL SQ SCH ×6 (00:35→20:30)
[2018-11-24] MEDS: Ipratropium/Albuterol Neb 3 ML IH SCH ×4 (03:55→21:37)
[2018-11-24 04:41] LABS: Basophils # 0.1 K/mcL (0.0-0.2); Basophils % 0.4 %; Eosinophils # 0.4 K/mcL (0.0-0.6); Eosinophils % 3.2 %; Hematocrit 31.1 % (35.3-44.9); Hemoglobin 9.7 g/dL (11.5-15.4); Immature Granulocytes % 1.5 % (0-4); Lymphocytes # 2.6 K/mcL (0.6-4.6); Lymphocytes % 20.8 %; Mean Corpuscular HGB Conc 31.2 g/dL (31.6-35.5); Mean Corpuscular Hemoglobin 27.1 pg (28.0-33.3); Mean Corpuscular Volume 86.9 fL (83.0-100.0); Mean Platelet Volume 10.1 fL (9.4-12.4); Monocytes # 0.7 K/mcL (0.0-1.3); Monocytes % 5.6 %; Neutrophils # 8.6 K/mcL (1.6-8.9); Platelet Count 336 K/mcL (140-400); Red Blood Count 3.58 M/mcL (3.82-4.97); Red Cell Distribution Width 15.7 % (11.5-14.5); Segmented Neutrophils % 68.5 %; White Blood Count 12.6 K/mcL (4.3-11.1)
[2018-11-24 05:02] LABS: BUN/Creatinine Ratio 14 (6-26); Blood Urea Nitrogen 11 mg/dL (8-23); Calcium 8.8 mg/dL (8.6-10.3); Carbon Dioxide 27 mEq/L (23-29); Chloride 101 mEq/L (98-107); Glucose 105 mg/dL (70-105); Magnesium 1.4 mg/dL (1.6-2.6); Osmolality,Calculated 288 (280-300); Phosphorous 3.8 mg/dL (2.7-4.5); Potassium 3.2 mEq/L (3.5-5.1); Sodium 139 mEq/L (136-145); eGFR For African Americans > 60 (> 60); eGFR For Non-African Americans > 60 (> 60)
[2018-11-24] MEDS: *HR* Heparin 5,000 UNIT/ML VIAL SQ SCH ×2 (06:21→18:10)
[2018-11-24] MEDS ORDERED: Potassium Chloride 20 MEQ, Lidocaine 1% 2 ML in D5% in Water 250 ML IVPB ONE (07:24)
--- NOTE | 2018-11-24 10:32 | General Surgery Progress Note ---
Date of Encounter: 11/24/18 Time of Encounter: 10:29 - Assessment and Plan (1) Cancer of transverse colon Current Visit: Yes Status: Acute Date of procedure: 11/17/18 Pre-op diagnosis: transverse colon cancer Post-op diagnosis: same Procedure: Laparoscopic converted to open extended right colectomy Complications: none immediate Anesthesia: PATRICEA Surgeon: Elaine Allen POD #7 as above. Adenocarcinoma with extensive mucousinst features of the transverse colon, too submucosa lipoma of the ascending colon, absent cecal appendix. Pathological stage pT3 pN0, margins negative, regional lymph nodes 0 of 18. She is running bowel function. Ileus appears to have resolved. She is afebrile and vital signs are stable. There is approximately 10 mL of SS drainage in her PONCE. Of note I did review with bedside RN as 250 mL was recorded today however this is a mistake. She has had 25 mL of output. Consider DC PONCE drain pending attending surgeon recommendations. Her WBC is increased today however she continues on IV antibiotics, is afebrile, vital signs are stable, and she has no complaints today. There is no obvious signs for concern of infection. Suspect this may be reactionary. I have encouraged her to be aggressive with her incentive spirometry. NG was DC'd. Plan: Continue supportive care and discomfort management while awaiting full return of bowel function stop scheduled Ofirmev. Add PRN Percocet. Continue lidocaine patches. Recommend premedicate with Zofran prior to narcotic administration full liquid diet for lunch if she tolerates advanced to soft for dinner stop IV fluids being TPN, stop tonight Continue G.I. and DVT prophylaxis Incentive spirometry 10 times every hour while awake Out of bed to chair TID, do not offer meal trays while in the bed Activity as tolerated Apply ice 20 minutes on 20 minutes off as needed repeat labs in the a.m. continue hospital care; antticipated d/c planning in the next 24-48 hours pending clinical course (2) Morbid obesity with BMI of 40.0-44.9, adult Current Visit: Yes Status: Chronic appropriate diet education (3) Tobacco abuse disorder Current Visit: Yes Status: Chronic smoking cessation RT pulm toileting Nicotine patch noted (4) Chronic pain Current Visit: Yes Status: Acute Continue home medications Qualifiers: Chronic pain type: other chronic pain Qualified Code(s): G89.29 - Other chronic pain (5) Postoperative ileus Current Visit: Yes Status: Resolved See above (6) Electrolyte abnormality Current Visit: Yes Status: Acute Lytes repleted per attending this am Subjective Patient reports: no new complaints, feels better, pain is less, voiding w/o difficulty, flatus, bowel movement, afebrile Narrative: "I want this tube out today. I have had 6 BMs and feel good." Objective Vital Signs - Last 8 Hours Temp Pulse Resp BP Pulse Ox 11/24/18 10:07 98.8 F 79 16 135/63 97 11/24/18 06:32 98.6 F 76 16 122/72 95 11/24/18 05:23 98.7 F 94 16 126/73 92 11/24/18 03:55 17 92 Intake and Output 11/23/18 11/24/18 11/24/18 23:59 07:59 15:59 Intake Total 2806 / 3918 200 / 200 0 / 200 Output Total 270 / 890 650 / 650 0 / 650 Balance 2536 / 3028 -450 / -450 0 / -450 Intake: IV Fluids 2806 / 3918 200 / 200 0.9 % Sodium Chloride 1,000 ML 1000 / 1000 @ 50 mls/hr IVC .Q20H [facility] Rx#: [id number] Clinimix E 5%-15% SOLUTION 2, 1406 / 1406 000 ML @ 65 mls/hr IVC .Q24H MICAELA with M.v.i. Adult 10 ml Rx# :[id number] Ofirmev 1,000 mg/100 ml 1,000 100 / 300 100 / 100 mg In 100 ml @ 400 mls/hr IVPB Q6HR [facility] Rx#:[id number] Cipro Premix 400 MG/200 ML 400 200 / 400 mg In 200 ml @ 200 mls/hr IVPB Q12HR [facility] Rx#:[id number] Flagyl Premix 500 MG/100 ML 500 100 / 300 100 / 100 mg In 100 ml @ 100 mls/hr IVPB Q8HR [facility] Rx#:[id number] Oral 0 / 0 0 / 0 0 / 0 Output: Urine 0 / 0 0 / 0 Urine/Stool Mix 250 / 250 Gastric Drainage 400 / 400 0 / 400 Wound Drainage 20 / 40 250 / 250 0 / 250 Right Lower Quadrant 20 / 40 250 / 250 0 / 250 Other: Meal npo Percent of Meal Consumed 0% Stool Size Moderate Stool Consistency liquid Stool Color Green Black # Voids 1 # Bowel Movements 1 Blood Glucose* 112 130 109 - General physical appearance well nourished, no distress, other (sitting upright in chair at bedside working with PT) - ENT normal mucosa, atraumatic, normocephalic - Neck Neck exam: trachea midline - Respiratory normal expansion, normal respiratory effort - Cardiovascular Cardiovascular exam: Present: RRR - Abdomen Abdomen: Present: bowel sounds present, soft, tender (expected postoperative), wound (PONCE site unremarkable. SS (mostly serous) drainage) Hernia: none - Incision Incision: Present: clean and dry, intact - Integumentary no rash - Neurologic normal coordination, normal sensation - Musculoskeletal normal posture - Psychiatric oriented to time, oriented to person, oriented to place - Labs 11/24/18 04:20 11/24/18 04:20 Diabetes panel 11/24/18 Range/Units 04:20 Sodium 139 (136-145) mEq/L Potassium 3.2 L (3.5-5.1) mEq/L Chloride 101 (98-107) mEq/L Carbon Dioxide 27 (23-29) mEq/L BUN 11 (8-23) mg/dL Creatinine 0.77 (0.60-1.20) mg/dL Glucose 105 (70-105) mg/dL Calcium 8.8 (8.6-10.3) mg/dL Calcium panel 11/24/18 Range/Units 04:20 Calcium 8.8 (8.6-10.3) mg/dL Phosphorus 3.8 (2.7-4.5) mg/dL Pituitary panel 11/24/18 Range/Units 04:20 Sodium 139 (136-145) mEq/L Potassium 3.2 L (3.5-5.1) mEq/L Chloride 101 (98-107) mEq/L Carbon Dioxide 27 (23-29) mEq/L BUN 11 (8-23) mg/dL Creatinine 0.77 (0.60-1.20) mg/dL Glucose 105 (70-105) mg/dL Calcium 8.8 (8.6-10.3) mg/dL Adrenal panel 11/24/18 Range/Units 04:20 Sodium 139 (136-145) mEq/L Potassium 3.2 L (3.5-5.1) mEq/L Chloride 101 (98-107) mEq/L Carbon Dioxide 27 (23-29) mEq/L BUN 11 (8-23) mg/dL Creatinine 0.77 (0.60-1.20) mg/dL Glucose 105 (70-105) mg/dL Calcium 8.8 (8.6-10.3) mg/dL Consult Discharge Plan - Plan Referrals: Elaine Allen MD [Partnered Physician] - 12/10/18 9:05 am Daniel Kirk MD [Partnered Physician] - 12/08/18 10:00 am Andrew Chen MD [Partnered Physician] -
[2018-11-24] MEDS: Gabapentin 300 MG CAPSULE PO SCH ×3 (11:13→20:10)
[2018-11-24] MEDS: Nicotine 7 MG PATCH.TD24 TD SCH (11:14)
[2018-11-24] MEDS: Losartan/HCTZ 50-12.5 TABLET PO SCH (11:14)
[2018-11-24] MEDS: Pantoprazole 40 MG VIAL IVP SCH (11:14)
[2018-11-24] MEDS ORDERED: Clinimix E 5%-15% SOLUTION 2,000 ML with MVI, adult with vitamin K 10 ML IVC SCH (17:00)
[2018-11-24] MEDS ORDERED: Clinimix E 5%-15% SOLUTION 2,000 ML with MVI, adult with vitamin K 10 ML, Magnesium S... IVC SCH ×2 (17:00)
[2018-11-24] MEDS: *HR* OxyCODONE/APAP 7.5/325 TABLET PO PRN (20:11)
[2018-11-24] MEDS: metroNIDAZOLE 500 MG TABLET PO SCH (20:11)
[2018-11-25] MEDS: *HR* OxyCODONE/APAP 7.5/325 TABLET PO PRN (04:04)
[2018-11-25] MEDS: Ipratropium/Albuterol Neb 3 ML IH SCH ×2 (04:29→10:20)
[2018-11-25] MEDS: *HR* Heparin 5,000 UNIT/ML VIAL SQ SCH (06:04)
[2018-11-25] MEDS: Insulin LISPRO 300 UNITS/3 ML VIAL SQ SCH ×3 (06:20→08:40)
[2018-11-25 06:44] VITALS: BP 116/73
[2018-11-25 08:05] LABS: Basophils # 0.1 K/mcL (0.0-0.2); Basophils % 0.5 %; Eosinophils # 0.4 K/mcL (0.0-0.6); Eosinophils % 3.4 %; Hematocrit 29.6 % (35.3-44.9); Hemoglobin 9.1 g/dL (11.5-15.4); Immature Granulocytes % 2.1 % (0-4); Lymphocytes # 2.4 K/mcL (0.6-4.6); Lymphocytes % 21.6 %; Mean Corpuscular HGB Conc 30.7 g/dL (31.6-35.5); Mean Corpuscular Hemoglobin 27.4 pg (28.0-33.3); Mean Platelet Volume 10.2 fL (9.4-12.4); Monocytes # 0.7 K/mcL (0.0-1.3); Monocytes % 6.4 %; Neutrophils # 7.2 K/mcL (1.6-8.9); Platelet Count 336 K/mcL (140-400); Red Blood Count 3.32 M/mcL (3.82-4.97); Red Cell Distribution Width 15.9 % (11.5-14.5)
[2018-11-25 08:10] LABS: Mean Corpuscular Volume 89.2 fL (83.0-100.0)
[2018-11-25 08:26] LABS: BUN/Creatinine Ratio 17 (6-26); Blood Urea Nitrogen 17 mg/dL (8-23); Calcium 8.6 mg/dL (8.6-10.3); Carbon Dioxide 25 mEq/L (23-29); Chloride 103 mEq/L (98-107); Glucose 107 mg/dL (70-105); Osmolality,Calculated 286 (280-300); Phosphorous 3.8 mg/dL (2.7-4.5); Potassium 3.4 mEq/L (3.5-5.1); Sodium 137 mEq/L (136-145); eGFR For African Americans > 60 (> 60); eGFR For Non-African Americans 58 (> 60)
[2018-11-25] MEDS: Losartan/HCTZ 50-12.5 TABLET PO SCH (08:52)
[2018-11-25] MEDS: metroNIDAZOLE 500 MG TABLET PO SCH (08:52)
[2018-11-25] MEDS: Gabapentin 300 MG CAPSULE PO SCH (08:53)
[2018-11-25] MEDS: Nicotine 7 MG PATCH.TD24 TD SCH (08:53)
[2018-11-25] MEDS ORDERED: Metoprolol XL (24 HR) Succ 25 MG TAB.ER.24H PO SCH (09:00)
--- NOTE | 2018-11-25 09:11 | Discharge Summary ---
Date of Encounter: 11/25/18 Time of Encounter: 09:19 - Discharge Diagnosis (1) Cancer of transverse colon Priority: Primary Status: Acute (2) Morbid obesity with BMI of 40.0-44.9, adult Priority: Secondary Status: Chronic (3) Tobacco abuse disorder Priority: Secondary Status: Chronic (4) Chronic pain Priority: Secondary Status: Acute Qualifiers: Chronic pain type: other chronic pain Qualified Code(s): G89.29 - Other chronic pain (5) Postoperative ileus Priority: Secondary Status: Resolved (6) Electrolyte abnormality Priority: Secondary Status: Acute General Surgery Exam Initial Vital Signs Temp Pulse Resp BP Pulse Ox 98.5 F 74 18 105/55 96 11/17/18 11:05 11/17/18 11:05 11/17/18 11:05 11/17/18 11:05 11/17/18 11:05 - General physical appearance well nourished, no distress, no pain - Neck trachea midline - Respiratory normal expansion, normal respiratory effort - Abdomen Abdomen general surgery: Present: bowel sounds present, soft, tender (Expected postoperative), wound (PONCE site unremarkable. Less than 10 ml Serous drainage noted) Hernia: Present: none - Incision Incision: Present: clean and dry, intact - Integumentary Integumentary general surgery: Present: warm and dry, no abnormal pigmentation - Neurologic Present: CN 2-12 grossly intact, normal coordination, normal sensation - Musculoskeletal Present: normal gait, normal posture - Psychiatric Psychiatric general surgery: Present: appropriate, oriented to person, oriented to place, oriented to time, speech is normal, memory intact - Hospital Course Hospital course: Ms. Hernandez is a 58 year old female who presented on 11/17/2018 for an elective laparoscopic right colectomy for transverse colon cancer. She was taken to the operating room on that same day where she underwent laparoscopic converted to open extended right colectomy. Her final pathology noted Adenocarcinoma with extensive mucousinst features of the transverse colon, too submucosa lipoma of the ascending colon, absent cecal appendix. Pathological stage pT3 pN0, margins negative, regional lymph nodes 0 of 18. Her hospital course was complicated by postoperative ileus for which she was supported with IV fluid, TPN and lipids, and supportive care. The ileus has resolved. She is having less than 30 mL of drainage in her PONCE drain and it was therefore DC'd prior to home. She is ambulating avoiding without difficulty, tolerating a diet without nausea or vomiting, vital signs are stable, afebrile, and she is having bowel function. We will begin discharge planning to home with a follow-up in the office in approximately 2 weeks. The patient already has home healthcare and can continue her previous treatments of nursing and aids as well as PT OT. Time spent discussing smoking cessation with patient: 3 to 10 minutes - Time Spent with Patient Total time spent providing and/or coordinating discharge services: - Discharge Medications Prescriptions: New Ciprofloxacin [Cipro] 500 mg PO BID 7 Days #14 tablet Docusate Sodium [Colace] 100 mg PO BID PRN #30 capsule PRN Reason: Contstipation metroNIDAZOLE [Flagyl] 500 mg PO TID 7 Days #21 tablet OxyCODONE/APAP 5/325 [Percocet 5/325 MG] 1 each PO Q6HR PRN 7 Days #28 tablet PRN Reason: Pain Ondansetron ODT [Zofran ODT] 4 mg SL Q4HR PRN #15 tab.rapdis PRN Reason: Postsurgical nausea Continued Omeprazole [PriLOSEC] 20 mg PO QAM Pravastatin Sodium [Pravachol] 40 mg PO QPM Magnesium Oxide [Magnesium] 400 mg PO QPM PRN PRN Reason: LOW MAGNESIUM Escitalopram [Lexapro] 10 mg PO QPM Metoprolol Succinate [Toprol Xl] 25 mg PO QAM Loperamide [Imodium] 2 mg PO QID PRN PRN Reason: LOOSE STOOLS Gabapentin 600 mg PO TID Clopidogrel [Plavix] 75 mg PO DAILY #30 tablet Ferrous Sulfate 325 mg PO BIDWM #60 tablet Losartan/Hydrochlorothiazide [Losartan-Hctz 100-25 mg Tab] 1 each PO DAILY Dicyclomine [Bentyl] 10 mg PO TID PRN PRN Reason: Pain Loratadine [Claritin] 10 mg PO DAILY Discontinued Tramadol HCl [Ultram] 50 mg PO TID PRN PRN Reason: Pain Home Medications: Magnesium Oxide [Magnesium] 400 mg PO QPM PRN 02/04/15 [History] Omeprazole [PriLOSEC] 20 mg PO QAM 02/04/15 [History] Pravastatin Sodium [Pravachol] 40 mg PO QPM 02/04/15 [History] Escitalopram [Lexapro] 10 mg PO QPM 01/03/18 [History] Metoprolol Succinate [Toprol Xl] 25 mg PO QAM 01/03/18 [History] Gabapentin 600 mg PO TID 10/08/18 [History] Loperamide [Imodium] 2 mg PO QID PRN 10/08/18 [History] Clopidogrel [Plavix] 75 mg PO DAILY #30 tablet 10/09/18 [Rx] Ferrous Sulfate 325 mg PO BIDWM #60 tablet 10/11/18 [Rx] Losartan/Hydrochlorothiazide [Losartan-Hctz 100-25 mg Tab] 1 each PO DAILY 10/21/18 [History] Dicyclomine [Bentyl] 10 mg PO TID PRN 10/22/18 [History] Loratadine [Claritin] 10 mg PO DAILY 10/22/18 [History] Ciprofloxacin [Cipro] 500 mg PO BID 7 Days #14 tablet 11/25/18 [Rx] Docusate Sodium [Colace] 100 mg PO BID PRN #30 capsule 11/25/18 [Rx] Ondansetron ODT [Zofran ODT] 4 mg SL Q4HR PRN #15 tab.rapdis 11/25/18 [Rx] OxyCODONE/APAP 5/325 [Percocet 5/325 MG] 1 each PO Q6HR PRN 7 Days #28 tablet 11/25/18 [Rx] metroNIDAZOLE [Flagyl] 500 mg PO TID 7 Days #21 tablet 11/25/18 [Rx] Allergies/Adverse Reactions: Allergy/AdvReac Type Severity Reaction Status Date / Time Penicillins Allergy Mild Rash/HIVES/SCRATCHY Verified 11/17/18 12:03 THROAT pregabalin [From Lyrica] AdvReac Mild FORGETFULL/ Verified 11/17/18 12:03 LETHARGIC latex AdvReac Unknown RASH/BLISTE Verified 11/17/18 12:03 RS Date of admission: 11/17/18 18:24 Primary care physician: PCP NONE Consults: 11/20/18 11:45 Consult to Physical Therapy [CONS] Routine Comment: Evaluate, develop and implement POC Reason for Consult: PT Does patient have active BEDREST order?: No Is patient medically & hemodynamically stable?: Yes Patient assessed for mobility or mobilized this visit?: Yes OT [Consult to Occupational Therapy] [CONS] Routine Comment: Evaluate, develop and implement POC Reason for Consult: OT Does patient have active BEDREST order?: No Is patient medically & hemodynamically stable?: Yes Patient assessed for mobility or mobilized this visit?: Yes 11/21/18 09:56 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 [Consult to Nutrition] [CONS] Routine Comment: Consulting Provider: NUTRITION Reason for Dietary Consult: TPN Start and Manage 11/24/18 11:11 Consult to Respiratory Therapy [CONS] Stat Reason for Consult: Acapella and aggressive pulm toileting Time Notified: 11:11 Call Completed: No Discharging clinician: Gali Romero Anticipated date of discharge: 11/25/18 Labs on day of discharge: Labs from last 24 hours 11/25/18 11/25/18 11/25/18 07:30 07:30 06:15 WBC 11.0 RBC 3.32 L Hgb 9.1 L Hct 29.6 L MCV 89.2 MCH 27.4 L MCHC 30.7 L RDW 15.9 H Plt Count 336 MPV 10.2 Immature Gran % 2.1 Seg Neutrophils % 66.0 Lymphocytes % 21.6 Monocytes % 6.4 Eosinophils % 3.4 Basophils % 0.5 Neutrophils # 7.2 Lymphocytes # 2.4 Monocytes # 0.7 Eosinophils # 0.4 Basophils # 0.1 Sodium 137 Potassium 3.4 L Chloride 103 Carbon Dioxide 25 BUN 17 Creatinine 0.98 Est GFR ( Amer) > 60 Est GFR (Non-Af Amer) 58 L BUN/Creatinine Ratio 17 Glucose 107 H POC Glucose Calculated Osmolality 286 Calcium 8.6 Phosphorus 3.8 Magnesium 2.0 Specimen Rejected MCV Delta 11/24/18 11/24/18 11/24/18 16:10 11:08 08:00 WBC RBC Hgb Hct MCV MCH MCHC RDW Plt Count MPV Immature Gran % Seg Neutrophils % Lymphocytes % Monocytes % Eosinophils % Basophils % Neutrophils # Lymphocytes # Monocytes # Eosinophils # Basophils # Sodium Potassium Chloride Carbon Dioxide BUN Creatinine Est GFR ( Amer) Est GFR (Non-Af Amer) BUN/Creatinine Ratio Glucose POC Glucose 115 H 117 H 109 H Calculated Osmolality Calcium Phosphorus Magnesium Specimen Rejected 11/24/18 11/24/18 11/23/18 05:19 00:41 19:49 WBC RBC Hgb Hct MCV MCH MCHC RDW Plt Count MPV Immature Gran % Seg Neutrophils % Lymphocytes % Monocytes % Eosinophils % Basophils % Neutrophils # Lymphocytes # Monocytes # Eosinophils # Basophils # Sodium Potassium Chloride Carbon Dioxide BUN Creatinine Est GFR ( Amer) Est GFR (Non-Af Amer) BUN/Creatinine Ratio Glucose POC Glucose 130 H 139 H 112 H Calculated Osmolality Calcium Phosphorus Magnesium Specimen Rejected 11/23/18 11/22/18 16:09 20:34 WBC RBC Hgb Hct MCV MCH MCHC RDW Plt Count MPV Immature Gran % Seg Neutrophils % Lymphocytes % Monocytes % Eosinophils % Basophils % Neutrophils # Lymphocytes # Monocytes # Eosinophils # Basophils # Sodium Potassium Chloride Carbon Dioxide BUN Creatinine Est GFR ( Amer) Est GFR (Non-Af Amer) BUN/Creatinine Ratio Glucose POC Glucose 102 H 115 H Calculated Osmolality Calcium Phosphorus Magnesium Specimen Rejected - Impressions ITS Impressions KUB X-Ray 11/18/18 21:22 IMPRESSION: Mild gaseous distension of small bowel loops throughout the abdomen, likely ileus. D/ / Aissatou Jaime Cha, MD / Aissatou Jaime Cha, MD Interpreting Provider: Aissatou Jaime Cha, MD X-Ray 11/18/18 23:14 IMPRESSION: Enteric tube is in good position in the stomach. D/ / Sorin Morris MD / Sorin Morris MD Interpreting Provider: Sorin Morris MD - Patient Status Disposition: Home, Self-Care Condition: Good Functional capacity at discharge: independent ambulation Overall status at discharge: patient is progressing back to baseline - Discharge Instructions Instructions: Colectomy (DC) Follow Up With: Elaine Allen MD [Partnered Physician] - 12/10/18 9:05 am Daniel Kirk MD [Partnered Physician] - 12/08/18 10:00 am Andrew Chen MD [Partnered Physician] - Additional Instructions: General Surgical Discharge Instructions 1. No pushing, pulling, or lifting greater than 15 lbs for 6weeks and where your abdominal binder at all times except for when showering. 2. You may shower beginning today, but no tub baths, soaking, or swimming for 2 weeks. 3. You may resume driving when you are off narcotics and are safe to react in a car. 4. You may take the as needed Percocet but you MAY NOT take Percocet with tramadol. If you are not taking Percocet you may continue your home regimen of tramadol. Eat a small snack before taking Percocet as this will reduce the chance of nausea or vomiting. You may use the Zofran/ondansetron if you feel nauseated. Take narcotics as directed. Do not take more narcotics then directed and do not share your narcotics with any other person. Do not drink alcohol while on narcotics. 5. Take stool softeners (Colace) or a water based laxative (Miralax) while taking narcotics. You may hold for loose stools. 6. Report any fevers greater than 100.5F, increase abdominal discomfort, drainage that looks like pus, increased redness or pain at the surgical site, or any vomiting. 7. Report any pain in the calves, shortness of breath, or rapid heartbeat. 8. Follow-up in the office as directed. 9. Take antibiotics as directed. Do not stop antibiotics without talking to your provider. Do not drink alcohol while taking metronidazole. Drinking alcohol while taking metronidazole can result in violent abdominal pain and vomiting. Refrain from alcohol use for 48 hours after completing metronidazole. - Diet and Activity Activity: as per physical therapy, increase activity as tolerated Diet: advance to your usual diet (low residue (no raw veggies or salad) until se en in follow-u)
--- NOTE | 2018-11-25 09:25 | Physician Discharge Referral ---
Home Health/Hosp Referral Info Transfer to: Home Health Attending Provider: Dr. Elaine Allen Provider in Charge Post Discharge: PCP - Diagnosis (1) Cancer of transverse colon Priority: Primary Status: Acute (2) Morbid obesity with BMI of 40.0-44.9, adult Priority: Secondary Status: Chronic (3) Tobacco abuse disorder Priority: Secondary Status: Chronic (4) Chronic pain Priority: Secondary Status: Acute (5) Postoperative ileus Priority: Secondary Status: Resolved (6) Electrolyte abnormality Priority: Secondary Status: Acute - Respiratory Orders Smoking Cessation: Smoking cessation has been advised. For more information, call the [place] Tobacco Quit Line at 5-587-SVFXNOW. - Dressing/Wound Care Site: Midline abdomen May leave open to air or cover with a dry dressing for patient preference. Other Treatments: General Surgical Discharge Instructions 1. No pushing, pulling, or lifting greater than 15 lbs for 6weeks and where your abdominal binder at all times except for when showering. 2. You may shower beginning today, but no tub baths, soaking, or swimming for 2 weeks. 3. You may resume driving when you are off narcotics and are safe to react in a car. 4. You may take the as needed Percocet but you MAY NOT take Percocet with tramadol. If you are not taking Percocet you may continue your home regimen of tramadol. Eat a small snack before taking Percocet as this will reduce the chance of nausea or vomiting. You may use the Zofran/ondansetron if you feel nauseated. Take narcotics as directed. Do not take more narcotics then directed and do not share your narcotics with any other person. Do not drink alcohol while on narcotics. 5. Take stool softeners (Colace) or a water based laxative (Miralax) while taking narcotics. You may hold for loose stools. 6. Report any fevers greater than 100.5F, increase abdominal discomfort, drainage that looks like pus, increased redness or pain at the surgical site, or any vomiting. 7. Report any pain in the calves, shortness of breath, or rapid heartbeat. 8. Follow-up in the office as directed. 9. Take antibiotics as directed. Do not stop antibiotics without talking to your provider. Do not drink alcohol while taking metronidazole. Drinking alcohol while taking metronidazole can result in violent abdominal pain and vomiting. Refrain from alcohol use for 48 hours after completing metronidazole. - Transfer Medications Prescriptions: Ciprofloxacin [Cipro] 500 mg PO BID 7 Days #14 tablet Docusate Sodium [Colace] 100 mg PO BID PRN #30 capsule PRN Reason: Contstipation metroNIDAZOLE [Flagyl] 500 mg PO TID 7 Days #21 tablet OxyCODONE/APAP 5/325 [Percocet 5/325 MG] 1 each PO Q6HR PRN 7 Days #28 tablet PRN Reason: Pain Ondansetron ODT [Zofran ODT] 4 mg SL Q4HR PRN #15 tab.rapdis PRN Reason: Postsurgical nausea Home Medications: Magnesium Oxide [Magnesium] 400 mg PO QPM PRN 02/04/15 [History] Omeprazole [PriLOSEC] 20 mg PO QAM 02/04/15 [History] Pravastatin Sodium [Pravachol] 40 mg PO QPM 02/04/15 [History] Escitalopram [Lexapro] 10 mg PO QPM 01/03/18 [History] Metoprolol Succinate [Toprol Xl] 25 mg PO QAM 01/03/18 [History] Gabapentin 600 mg PO TID 10/08/18 [History] Loperamide [Imodium] 2 mg PO QID PRN 10/08/18 [History] Clopidogrel [Plavix] 75 mg PO DAILY #30 tablet 10/09/18 [Rx] Ferrous Sulfate 325 mg PO BIDWM #60 tablet 10/11/18 [Rx] Losartan/Hydrochlorothiazide [Losartan-Hctz 100-25 mg Tab] 1 each PO DAILY 10/21/18 [History] Dicyclomine [Bentyl] 10 mg PO TID PRN 10/22/18 [History] Loratadine [Claritin] 10 mg PO DAILY 10/22/18 [History] Ciprofloxacin [Cipro] 500 mg PO BID 7 Days #14 tablet 11/25/18 [Rx] Docusate Sodium [Colace] 100 mg PO BID PRN #30 capsule 11/25/18 [Rx] Ondansetron ODT [Zofran ODT] 4 mg SL Q4HR PRN #15 tab.rapdis 11/25/18 [Rx] OxyCODONE/APAP 5/325 [Percocet 5/325 MG] 1 each PO Q6HR PRN 7 Days #28 tablet 11/25/18 [Rx] metroNIDAZOLE [Flagyl] 500 mg PO TID 7 Days #21 tablet 11/25/18 [Rx] Allergies/Adverse Reactions: Allergy/AdvReac Type Severity Reaction Status Date / Time Penicillins Allergy Mild Rash/HIVES/SCRATCHY Verified 11/17/18 12:03 THROAT pregabalin [From Lyrica] AdvReac Mild FORGETFULL/ Verified 11/17/18 12:03 LETHARGIC latex AdvReac Unknown RASH/BLISTE Verified 11/17/18 12:03 RS Certification: Further, I certify that my clinical findings support that this patient is homebound (i.e. absences from home require considerable and taxing effort and are for medical reasons or adventist services or infrequently or short duration when for other reasons) because: Homebound Reason: Patient requires assistance of a person or device to safely leave home, Leaving home requires considerable and taxing effort due to condition Attestation: My signature below is to certify that this patient is under my care and that I, or nurse practitioner, or a physician's public relations assistant working with me, has a [id number] encounter with this patient.
== END 2018-11-25 10:54 | disposition home or self-care (01) | DRG 231 ==
LOC: SAMDAY 10:36 → 3ANU 18:24
PROVIDERS: ADMIT Surgery; ATTEND Surgery

== ENCOUNTER 2019-05-20 06:48 | Observation (INO) ==
[2019-05-20] MEDS ORDERED: Ondansetron 4 MG/2 ML VIAL IVP PRN (10:08)
[2019-05-20] MEDS: 0.9 % Sodium Chloride 1,000 ML IVC SCH ×2 (10:25→17:51)
[2019-05-20] MEDS ORDERED: Pantoprazole 40 MG in 0.9 % Sodium Chloride Mini Bag 100 ML IVC SCH (10:45)
[2019-05-20 10:49] LABS: Basophils % 0.2 %; Eosinophils % 0.1 %; Hematocrit 35.9 % (35.3-44.9); Hemoglobin 12.1 g/dL (11.5-15.4); Immature Granulocytes % 0.6 % (0-4); Lymphocytes # 1.4 K/mcL (0.6-4.6); Lymphocytes % 13.6 %; Mean Corpuscular HGB Conc 33.7 g/dL (31.6-35.5); Mean Corpuscular Hemoglobin 28.9 pg (28.0-33.3); Mean Corpuscular Volume 85.7 fL (83.0-100.0); Mean Platelet Volume 11.1 fL (9.4-12.4); Monocytes # 0.4 K/mcL (0.0-1.3); Monocytes % 4.1 %; Neutrophils # 8.1 K/mcL (1.6-8.9); Platelet Count 240 K/mcL (140-400); Red Blood Count 4.19 M/mcL (3.82-4.97); Red Cell Distribution Width 13.4 % (11.5-14.5); Segmented Neutrophils % 81.4 %
[2019-05-20 10:53] LABS: INR 1.2; Prothrombin Time 13.6 Seconds (9.4-12.1)
[2019-05-20 10:55] LABS: Activated Partial Thrombo Time 33.5 Seconds (26.0-36.0)
[2019-05-20 11:07] LABS: BUN/Creatinine Ratio 43 (6-26); Blood Urea Nitrogen 34 mg/dL (8-23); Calcium 8.2 mg/dL (8.6-10.3); Carbon Dioxide 21 mEq/L (23-29); Chloride 110 mEq/L (98-107); Glucose 133 mg/dL (70-105); Osmolality,Calculated 308 (280-300); Potassium 4.1 mEq/L (3.5-5.1); Sodium 144 mEq/L (136-145); eGFR For African Americans > 60 (> 60); eGFR For Non-African Americans > 60 (> 60)
[2019-05-20 12:25] LABS: Hematocrit 35.1 % (35.3-44.9); Hemoglobin 11.4 g/dL (11.5-15.4)
[2019-05-20] MEDS ORDERED: Magnesium Oxide 400 MG TABLET PO PRN (14:21)
[2019-05-20] MEDS: Gabapentin 300 MG CAPSULE PO SCH ×2 (16:26→21:13)
[2019-05-20] MEDS: Pantoprazole 40 MG VIAL IVP SCH (17:51)
[2019-05-20] MEDS ORDERED: Pantoprazole 40 MG VIAL IVP SCH (18:00)
[2019-05-20 18:23] LABS: Hematocrit 26.2 % (35.3-44.9); Hemoglobin 9.5 g/dL (11.5-15.4)
[2019-05-20 20:34] LABS: Hematocrit 30.8 % (35.3-44.9); Hemoglobin 10.2 g/dL (11.5-15.4)
[2019-05-21 01:02] LABS: Hematocrit 29.8 % (35.3-44.9); Hemoglobin 10.2 g/dL (11.5-15.4)
[2019-05-21 06:42] LABS: Hematocrit 30.2 % (35.3-44.9); Hemoglobin 10.4 g/dL (11.5-15.4); Mean Corpuscular HGB Conc 34.4 g/dL (31.6-35.5); Mean Corpuscular Hemoglobin 29.5 pg (28.0-33.3); Mean Corpuscular Volume 85.8 fL (83.0-100.0); Mean Platelet Volume 11.6 fL (9.4-12.4); Platelet Count 163 K/mcL (140-400); Red Blood Count 3.52 M/mcL (3.82-4.97); Red Cell Distribution Width 13.9 % (11.5-14.5); White Blood Count 7.9 K/mcL (4.3-11.1)
[2019-05-21 06:56] LABS: BUN/Creatinine Ratio 30 (6-26); Blood Urea Nitrogen 21 mg/dL (8-23); Calcium 7.9 mg/dL (8.6-10.3); Carbon Dioxide 20 mEq/L (23-29); Chloride 112 mEq/L (98-107); Glucose 88 mg/dL (70-105); Osmolality,Calculated 298 (280-300); Potassium 4.2 mEq/L (3.5-5.1); Sodium 143 mEq/L (136-145); eGFR For African Americans > 60 (> 60); eGFR For Non-African Americans > 60 (> 60)
[2019-05-21] MEDS: Gabapentin 300 MG CAPSULE PO SCH ×3 (08:05→21:35)
[2019-05-21] MEDS: Pantoprazole 40 MG VIAL IVP SCH ×2 (08:06→17:31)
[2019-05-21] MEDS ORDERED: SODIUM CHLORIDE/NAHCO3/KCL/PEG 4,000 ML SOLN.RECON PO ONE (17:00)
[2019-05-22] MEDS: Pantoprazole 40 MG VIAL IVP SCH ×2 (05:39→17:32)
[2019-05-22 06:40] LABS: Hematocrit 27.9 % (35.3-44.9); Hemoglobin 9.4 g/dL (11.5-15.4); Mean Corpuscular HGB Conc 33.7 g/dL (31.6-35.5); Mean Corpuscular Hemoglobin 29.5 pg (28.0-33.3); Mean Corpuscular Volume 87.5 fL (83.0-100.0); Mean Platelet Volume 10.5 fL (9.4-12.4); Platelet Count 154 K/mcL (140-400); Red Blood Count 3.19 M/mcL (3.82-4.97); Red Cell Distribution Width 13.4 % (11.5-14.5); White Blood Count 6.6 K/mcL (4.3-11.1)
[2019-05-22] MEDS ORDERED: Propofol 500 MG/50 ML INFUS..BTL ONE (09:26)
[2019-05-22] MEDS ORDERED: *HR* EPINEPHrine 1 MG/10 ML SYRINGE IVP ONE (09:44)
[2019-05-22] MEDS ORDERED: *HR* Propofol 200 MG/20 ML VIAL IVP ONE (09:57)
[2019-05-22] MEDS ORDERED: Acetaminophen 325 MG TABLET PO PRN (10:28)
[2019-05-22] MEDS: Gabapentin 300 MG CAPSULE PO SCH ×2 (10:35→14:08)
[2019-05-22 10:38] LABS: BUN/Creatinine Ratio 16 (6-26); Blood Urea Nitrogen 11 mg/dL (8-23); Calcium 8.4 mg/dL (8.6-10.3); Carbon Dioxide 26 mEq/L (23-29); Chloride 108 mEq/L (98-107); Glucose 95 mg/dL (70-105); Osmolality,Calculated 295 (280-300); Potassium 2.9 mEq/L (3.5-5.1); Sodium 143 mEq/L (136-145); eGFR For African Americans > 60 (> 60); eGFR For Non-African Americans > 60 (> 60)
[2019-05-22] MEDS ORDERED: Dexamethasone 4 MG/ML VIAL IVP ONE (11:13)
[2019-05-22] MEDS ORDERED: *HR* Promethazine 25 MG/ML VIAL IVP PRN (11:13)
[2019-05-22] MEDS ORDERED: Ondansetron 4 MG/2 ML VIAL IVP ONE (11:13)
[2019-05-22] MEDS ORDERED: Scopolamine Patch 1.5 MG PATCH.TD72 TD ONE (11:14)
[2019-05-22 14:28] VITALS: BP 131/61
[2019-05-22 17:34] LABS: Bilirubin,Urine Negative (Negative); Blood,Urine Negative (Negative); Clarity,Urine Cloudy (Clear); Color,Urine Yellow (Yellow); Glucose,Urine (UA) Normal (Normal); Ketones,Urine Negative (Negative); Leukocyte Esterase,Urine Moderate (Negative); Nitrite,Urine Positive (Negative); Protein,Urine Negative (Neg-Trace); Specific Gravity,Urine 1.027 (1.010-1.025); Urobilinogen,Urine Normal (Normal)
[2019-05-22 17:37] LABS: Bacteria,Urine Many per hpf (None-Few); Squamous Epithelial Cell,Urine Many per lpf (None-Few); WBC,Urine 50-100 per hpf (0-3)
== END 2019-05-22 18:47 | disposition home or self-care (01) ==
LOC: 3ANU → SUATTDRO 08:30
PROVIDERS: ADMIT Family Medicine; ATTEND Internal Medicine

== ENCOUNTER 2020-06-13 03:32 | Inpatient (IN) ==
[2020-06-13] MEDS ORDERED: Ondansetron 4 MG/2 ML VIAL IVP PRN (03:41)
[2020-06-13] MEDS ORDERED: Naloxone 0.4 MG/ML INJ IVP PRN (03:41)
[2020-06-13 04:25] LABS: Basophils % 0.4 %; Eosinophils # 0.1 K/mcL (0.0-0.6); Eosinophils % 1.5 %; Hematocrit 40.1 % (35.3-44.9); Immature Granulocytes % 0.4 % (0-4); Lymphocytes # 3.3 K/mcL (0.6-4.6); Mean Corpuscular HGB Conc 32.4 g/dL (31.6-35.5); Mean Corpuscular Hemoglobin 28.6 pg (28.0-33.3); Mean Corpuscular Volume 88.3 fL (83.0-100.0); Mean Platelet Volume 11.1 fL (9.4-12.4); Monocytes # 0.6 K/mcL (0.0-1.3); Monocytes % 8.7 %; Neutrophils # 3.3 K/mcL (1.6-8.9); Platelet Count 253 K/mcL (140-400); Red Blood Count 4.54 M/mcL (3.82-4.97); Red Cell Distribution Width 13.2 % (11.5-14.5); White Blood Count 7.4 K/mcL (4.3-11.1)
[2020-06-13 04:28] LABS: INR 1.2
[2020-06-13 04:30] LABS: Activated Partial Thrombo Time 30.2 Seconds (26.0-36.0)
[2020-06-13 04:42] LABS: Bilirubin,Urine Negative (Negative); Blood,Urine Negative (Negative); Clarity,Urine Clear (Clear); Color,Urine Light-Yellow (Yellow); Glucose,Urine (UA) Normal (Normal); Ketones,Urine Negative (Negative); Leukocyte Esterase,Urine Negative (Negative); Mucus,Urine Few per lpf (None-Few); Nitrite,Urine Positive (Negative); PH,Urine 6.5 pH Units (5.0-8.0); Protein,Urine Trace mg/dL (Neg-Trace); Specific Gravity,Urine > 1.030 (1.010-1.025); Squamous Epithelial Cell,Urine Moderate per hpf (None-Few); Urobilinogen,Urine Normal (Normal)
[2020-06-13 04:43] LABS: Alanine Aminotransferase 14 Units/L (7-52); Albumin 3.7 g/dL (3.5-5.7); Albumin/Globulin Ratio 1.7 (1.1-2.2); Alkaline Phosphatase 59 Units/L (34-104); Aspartate Amino Transferase 12 Units/L (13-39); BUN/Creatinine Ratio 18 (6-26); Bilirubin,Total 0.4 mg/dL (0.3-1.0); Blood Urea Nitrogen 17 mg/dL (8-23); Calcium 7.7 mg/dL (8.6-10.3); Carbon Dioxide 22 mEq/L (23-29); Chloride 113 mEq/L (98-107); Globulin 2.2 g/dL (2.4-3.5); Glucose 104 mg/dL (70-105); Osmolality,Calculated 300 (280-300); Potassium 3.3 mEq/L (3.5-5.1); Sodium 144 mEq/L (136-145); Total Protein 5.9 g/dL (6.4-8.9); eGFR For African Americans > 60 (> 60); eGFR For Non-African Americans 59 (> 60)
[2020-06-13] MEDS ORDERED: *HR* Heparin 5,000 UNIT/ML VIAL SQ SCH (06:00)
[2020-06-13] MEDS ORDERED: Chloraseptic Spray 177 ML BOTTLE MM PRN (07:43)
[2020-06-13] MEDS ORDERED: Potassium Chloride 20 MEQ, Lidocaine 1% 2 ML in 0.9 % Sodium Chloride 250 ML IVPB ONE (08:46)
[2020-06-13] MEDS: cefTRIAXone 1,000 MG in 0.9 % Sodium Chloride Mini Bag 100 ML IVPB SCH (08:48)
[2020-06-13] MEDS: Ondansetron 4 MG/2 ML VIAL IVP PRN (10:58)
[2020-06-13] MEDS: 0.9 % Sodium Chloride 1,000 ML IVC SCH (11:04)
[2020-06-13] MEDS: *HR* Heparin 5,000 UNIT/ML VIAL SQ SCH (17:48)
[2020-06-14] MEDS: 0.9 % Sodium Chloride 1,000 ML IVC SCH (00:06)
[2020-06-14 04:42] LABS: BUN/Creatinine Ratio 15 (6-26); Blood Urea Nitrogen 11 mg/dL (8-23); Calcium 7.3 mg/dL (8.6-10.3); Carbon Dioxide 21 mEq/L (23-29); Chloride 113 mEq/L (98-107); Glucose 73 mg/dL (70-105); Osmolality,Calculated 296 (280-300); Phosphorous 2.9 mg/dL (2.7-4.5); Potassium 2.7 mEq/L (3.5-5.1); Sodium 144 mEq/L (136-145); eGFR For African Americans > 60 (> 60); eGFR For Non-African Americans > 60 (> 60)
[2020-06-14] MEDS: *HR* Heparin 5,000 UNIT/ML VIAL SQ SCH ×2 (05:29→17:17)
[2020-06-14] MEDS ORDERED: Potassium Chloride 40 MEQ, Lidocaine 1% 2 ML in 0.9 % Sodium Chloride 500 ML IVPB ONE (08:37)
[2020-06-14] MEDS: cefTRIAXone 1,000 MG in 0.9 % Sodium Chloride Mini Bag 100 ML IVPB SCH (09:42)
[2020-06-14] MEDS: Gabapentin 300 MG CAPSULE PO SCH ×2 (14:48→20:12)
[2020-06-14 15:30] LABS: BUN/Creatinine Ratio 10 (6-26); Blood Urea Nitrogen 7 mg/dL (8-23); Calcium 7.4 mg/dL (8.6-10.3); Carbon Dioxide 20 mEq/L (23-29); Chloride 112 mEq/L (98-107); Glucose 131 mg/dL (70-105); Magnesium 2.1 mg/dL (1.6-2.6); Osmolality,Calculated 292 (280-300); Potassium 2.7 mEq/L (3.5-5.1); Sodium 141 mEq/L (136-145); eGFR For African Americans > 60 (> 60); eGFR For Non-African Americans > 60 (> 60)
[2020-06-14] MEDS: Magnesium Oxide 400 MG TABLET PO SCH (20:12)
[2020-06-14] MEDS: Ondansetron 4 MG/2 ML VIAL IVP PRN (20:44)
[2020-06-15 04:58] LABS: BUN/Creatinine Ratio 6 (6-26); Blood Urea Nitrogen 4 mg/dL (8-23); Calcium 7.7 mg/dL (8.6-10.3); Carbon Dioxide 22 mEq/L (23-29); Chloride 107 mEq/L (98-107); Glucose 105 mg/dL (70-105); Magnesium 1.5 mg/dL (1.6-2.6); Osmolality,Calculated 285 (280-300); Phosphorous 2.2 mg/dL (2.7-4.5); Potassium 2.5 mEq/L (3.5-5.1); Sodium 139 mEq/L (136-145); eGFR For African Americans > 60 (> 60); eGFR For Non-African Americans > 60 (> 60)
[2020-06-15] MEDS ORDERED: Potassium Chloride 40 MEQ, Lidocaine 1% 2 ML in 0.9 % Sodium Chloride 500 ML IVPB ONE (05:30)
[2020-06-15] MEDS: *HR* Heparin 5,000 UNIT/ML VIAL SQ SCH (05:39)
[2020-06-15] MEDS ORDERED: Acetaminophen 325 MG TABLET PO ONE (08:15)
[2020-06-15] MEDS ORDERED: Potassium Chloride 20 MEQ, Lidocaine 1% 2 ML in 0.9 % Sodium Chloride 250 ML IVPB ONE (08:30)
[2020-06-15] MEDS ORDERED: Cyanocobalamin (B-12) 1,000 MCG TABLET PO SCH (09:00)
[2020-06-15] MEDS ORDERED: Metoprolol XL (24 HR) Succ 25 MG TAB.ER.24H PO SCH (09:00)
[2020-06-15] MEDS: Gabapentin 300 MG CAPSULE PO SCH (09:53)
[2020-06-15] MEDS: cefTRIAXone 1,000 MG in 0.9 % Sodium Chloride Mini Bag 100 ML IVPB SCH (09:56)
[2020-06-15] MEDS: Magnesium Oxide 400 MG TABLET PO SCH (09:56)
[2020-06-15] MEDS: Ondansetron 4 MG/2 ML VIAL IVP PRN (10:16)
[2020-06-15 13:51] LABS: BUN/Creatinine Ratio 5 (6-26); Blood Urea Nitrogen 3 mg/dL (8-23); Calcium 7.9 mg/dL (8.6-10.3); Carbon Dioxide 23 mEq/L (23-29); Chloride 109 mEq/L (98-107); Glucose 98 mg/dL (70-105); Osmolality,Calculated 287 (280-300); Potassium 3.7 mEq/L (3.5-5.1); Sodium 140 mEq/L (136-145); eGFR For African Americans > 60 (> 60); eGFR For Non-African Americans > 60 (> 60)
[2020-06-15 15:55] VITALS: BP 107/63
== END 2020-06-15 16:46 | disposition home health service (06) | DRG 247 ==
LOC: 3ANU → SUATTDRO 03:32
PROVIDERS: ADMIT Family Medicine; ATTEND Internal Medicine